=== PATIENT | female | born 2000 | race Caucasian/White ===

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

== ENCOUNTER 2022-01-10 11:12 | Emergency (ER) | payer BC, MEDICAID, SELFPAY ==
--- NOTE | ~2022-01-10 | US_ITS ---
EXAMINATION: US OB <=14 wk fetus w TV DATE: 01/10/2022 14:31 INDICATION: Left upper quadrant pain for 3 days. TECHNIQUE: Real-time transabdominal and transvaginal obstetric ultrasound. FINDINGS: No prior studies for comparison. The uterus measures 8.9 x 6 x 4.4 cm. There is an intrauterine gestational sac without evidence for f etal pole. There is fluid in the endometrium. There is a yolk sac. There is 3.7 cm corpus luteal cyst of the right ovary. The left ovary is unremarkable. Left ovary is unremarkable. IMPRESSION: 1. Intrauterine gestational sac containing a yolk sac. No pole is identified, likely due to ear ly gestation age. Differential diagnosis includes failed and ectopic . Recommend f ollow-up with serial quantitative beta-hCG levels and ultrasound as clinically indicated. 2: 3.7 cm corpus luteal cyst of the right ovary. Reviewed, dictated and finalized at location B. IMPRESSION: 1. Intrauterine gestational sac containing a yolk sac. No pole is identif ied, likely due to early gestation age. Differential diagnosis includes failed and ectopic . Recommend follow-up with serial quantitative b eta-hCG levels and ultrasound as clinically indicated. 2: 3.7 cm corpus luteal cyst of the right ovary.
[2022-01-10 11:26] VITALS: BP 118/63; PULSE 108; RESP 20; TEMP 36.2; O2SAT 100
[2022-01-10 12:06] LABS: Basophils Percent Auto 0.2 % (0.2-1.2); Eosinophils Percent Auto 0.3 % (0-4.4); Hematocrit 40.4 % (37.0-47.0); Hemoglobin 13.5 g/dL (12.0-15.0); Immature Granulocyte Absolute 0.04 K/mm3 (0.00-0.031); Immature Granulocyte Percent A 0.4 % (0-0.5); Lymphocytes Absolute Auto 1.42 K/mm3 (0.9-3.2); Lymphocytes Percent Auto 13.3 % (18.3-44.2); Mean Corpuscular HGB Conc 33.4 g/dl (32-36); Mean Corpuscular Hemoglobin 28.5 pg (26-34); Mean Corpuscular Volume 85.2 fl (80-100); Mean Platelet Volume 11.1 fl (7.4-10.4); Monocytes Absolute Auto 0.8 K/mm3 (0.1-0.6); Neutrophils Absolute Auto 8.4 K/mm3 (1.3-6.7); Neutrophils Percent Auto 78.8 % (45.5-73.1); Platelet Count Result 221 k/mm3 (150-375); Red Blood Count 4.74 M/mm3 (4.2-5.4); Red Cell Distribution Width 13.1 % (11.5-14.5); White Blood Count 10.7 K/mm3 (4.5-10.0)
[2022-01-10 12:10] LABS: Appearance Urine Clear (Clear); Bilirubin Urine Negative (Negative); Color Urine Yellow (Yellow); Glucose Urine UA Negative (Negative); Ketones Urine Trace mg/dL (Negative); Leukocyte Esterase Ur 2+ LEU/UL (Negative); Nitrate Urine Negative (Negative); Protein Urine Negative (Negative); Specific Grav Ur 1.025 (1.001-1.035); pH Urine 6.5 (5.0-9.0)
[2022-01-10 12:12] LABS: Add Urine Microscopic? YES; Blood Urine Trace-Intact (Negative)
[2022-01-10 12:13] LABS: Alanine Aminotransferase 16 U/L (6-35); Albumin Level 4.7 g/dL (3.7-5.6); Alkaline Phosphatase 71 U/L (45-116); Anion Gap 8 mmol/L (8-16); Aspartate Amino Transferase 21 U/L (14-36); Bilirubin,Total 0.6 mg/dL (0.2-1.3); Blood Urea Nitrogen 11 mg/dL (8-21); Calcium 9.1 mg/dL (8.9-10.7); Carbon Dioxide 23 mmol/L (22-30); Chloride 105 mmol/L (98-107); Estimated CRCL calculation 102 ml/min; Estimated Glomerular Filt Rate > 60; Glucose 90 mg/dL (65-110); Lipase 40 U/L (23-300); Potassium 3.7 mmol/L (3.4-5.0); Sodium 136 mmol/L (134-143)
[2022-01-10 12:22] LABS: Bacteria Urine Trace /hpf; Mucus Urine Rare /lpf; Squamous Epithelial Cell Urine Few /hpf (Few)
[2022-01-10 13:24] VITALS: BP 120/67; PULSE 99; RESP 18; TEMP 36.6; O2SAT 100
--- NOTE | 2022-01-10 13:39 | ED.ABDPAIN ---
HPI - Abdominal Pain General Chief Complaint: Abdominal Pain Stated Complaint: +preg, cramping Time Seen by Provider: 01/10/22 13:34 History of Present Illness HPI narrative: 21-year-old female presents to the emergency room today for complaints of lower abdominal cramping. Symptoms started 3 days ago. She denies any diarrhea. She has had some nausea and vomiting today. She is currently . She is very early in her and not sure how far along she is. She had a positive home test on December 29. She will not see her OB provider until later this month. She denies any vaginal bleeding or spotting. Last period was around December 05 but she says that it was very light bleeding for a couple of days. She just stopped her control at the beginning of November. She called the OB office today and they wanted her to come to the ER to make sure that she did not have an ectopic . This is her first . She does report having some yellowish vaginal discharge. She was taking an antibiotic for bacterial vaginosis and UTI but she stopped them when she found out that she was because she was not sure if it could hurt the baby. Related Data Home Medications Medication Instructions Recorded Confirmed vits 75-iron 28 mg-folic pkg PO 01/10/22 acid 800 mcg-omega3 440 mg oral pack Allergies Allergy/AdvReac Type Severity Reaction Status Date / Time No Known Allergies Allergy Mild Verified 01/10/22 14:35 Review of Systems Review of Systems: CONSTITUTIONAL: Denies fever, chills, or sweats. EYES: Denies visual changes, redness, or discharge. ENT: Denies rhinorrhea, congestion, sore throat, or otalgia. CARDIOVASCULAR: Denies chest pain, palpitations, or edema. RESPIRATORY: Denies cough or dyspnea. GASTROINTESTINAL: As per HPI GENITOURINARY: Denies dysuria or hematuria. As per HPI SKIN: Denies rash or itching. MUSCULOSKELETAL: Denies back pain, joint pain, or myalgia. NEUROLOGIC: Denies headache, numbness, dizziness, or weakness. PSYCHIATRIC: Denies anxiety or depression. [facility] Past Medical History Medical History Endometriosis Surgical History Surgical History H/O ovarian cystectomy S/P laparoscopic procedure Social History Social History Smoking status: Never smoker Second hand tobacco smoke exposure: No Alcohol intake: never Substance use: never Substance use type: does not use Gender identity (if verbalized by the patient): Female Spiritual care concerns: No Exam Narrative: GENERAL: Well-appearing, well-nourished, and in no acute distress. HEAD: Normocephalic, atraumatic. NECK: Supple. No adenopathy or masses. No carotid bruits or JVD CHEST: Clear to auscultation. No respiratory distress. No wheezes rales or rhonchi HEART: Regular rate and rhythm. No murmur heard. Normal peripheral pulses. ABDOMEN: Soft, nontender, nondistended, normal active bowel sounds. : Normal external vaginal exam. Internal vaginal exam demonstrates yellow discharge. Cervix has bluish coloration and is closed. Mild uterine enlargement. No adnexal tenderness. EXTREMITIES: Normal range of motion. No edema. SKIN: Warm, dry, no rash. NEURO: No focal deficits. Alert and oriented x3. PSYCH: Normal mood and affect. Course Course Emergency Course: Work up discussed with patient. Will treat patient for BV and UTI. Advised to call OB office to get closer follow up appointment this week. Pt agrees with discharge plan. Vital Signs Vital signs: Vital Signs Temperature 36.2 C L 01/10/22 11:26 Pulse Rate 108 H 01/10/22 11:26 Respiratory Rate 20 01/10/22 11:26 Blood Pressure 118/63 01/10/22 11:26 Pulse Oximetry 100 01/10/22 11:26 Oxygen Delivery Room Air 01/10/22 11:26 Temperature 3
[2022-01-10 14:29] VITALS: BP 112/68; PULSE 97; RESP 18; O2SAT 100
[2022-01-10 15:13] VITALS: BP 102/69; PULSE 90; RESP 16; O2SAT 100
== END 2022-01-10 16:20 | disposition home or self-care (01) ==
PROVIDERS: Emergency Medicine; Emergency Provider Nurse Practitioner Family; PCP Nurse Practitioner Family
DX: O23.40 Unspecified infection of urinary tract in pregnancy, unspecified trimester (principal); N39.0 Urinary tract infection, site not specified; Z3A.00 Weeks of gestation of pregnancy not specified; O99.891 Other specified diseases and conditions complicating pregnancy; R10.2 Pelvic and perineal pain
CPT/HCPCS: 36415; 76801; 76817; 80053; 81001; 83690; 84702; 85025; 87070; 87086; 87491; 87591; 87808; 99284

== ENCOUNTER 2022-01-13 17:38 | Outpatient (CLI) | payer BC, MEDICAID, SELFPAY | END 2022-01-13 17:39 | disposition home or self-care (01) | LOC: ANHLAB 17:41 | PROVIDERS: PCP Nurse Practitioner Family; Visit Provider Obstetrics & Gynecology | DX: R52 Pain, unspecified (principal) | CPT/HCPCS: 36415; 84702 ==

== ENCOUNTER 2022-04-23 15:54 | Observation (INO) | payer BC, MEDICAID, SELFPAY ==
[2022-04-23 16:06] VITALS: BP 109/56; PULSE 71
[2022-04-23 16:15] VITALS: BP 108/62; PULSE 72; BMI 18.7
--- NOTE | 2022-04-23 16:24 | OBADM ---
This patient, Miryam Hair, admitted to the OB room OB Post 116 for observation. Patient/family oriented to hospital policies and general routines including ID bracelet, bed and alarms, visiting hours, pain management, procedures, bathroom and other care routines, personal items, smoking policy, room service/diet, and visiting hours. Patient/Family are encouraged to report perceived risks to care and to ask questions if they do not understand what they are told or what they should do.
[2022-04-23 16:29] LABS: Appearance Urine Clear (Clear); Bilirubin Urine Negative (Negative); Blood Urine Negative (Negative); Color Urine Yellow (Yellow); Glucose Urine UA Negative (Negative); Ketones Urine Negative (Negative); Leukocyte Esterase Ur Negative LEU/UL (Negative); Nitrate Urine Negative (Negative); Protein Urine Negative (Negative)
[2022-04-23 16:30] VITALS: BP 109/65; PULSE 78
[2022-04-23 16:40] LABS: Bacteria Urine Trace /hpf; Mucus Urine Rare /lpf; Squamous Epithelial Cell Urine Few /hpf (Few); WBC Urine 0-3 /hpf
[2022-04-23 16:44] LABS: Add Urine Microscopic? NO
--- NOTE | 2022-05-15 13:12 | PM.OBTRLD ---
OB - Triage/Final Diagnosis Visit Information Comments/Additional reasons for admission: I have assessed the risk for this patient, Miryam Hair, and determined that she would benefit from observation care. Evaluation Laboratory results: Laboratory Tests 04/23/22 16:20 Urine Color Yellow Urine Appearance Clear Urine pH 7.0 Ur Specific [place] 1.020 Urine Protein Negative Urine Glucose (UA) Negative Urine Ketones Negative Ur Blood (Man) Negative Urine Nitrate Negative Urine Bilirubin Negative Urine Urobilinogen 1.0 Leukocyte Esterase Rfl Negative Urine RBC 3-5 H Urine WBC 0-3 Ur Squamous Epith Cells Few Urine Bacteria Trace Urine Mucus Rare Final Diagnosis (1) Abdominal pain: Code(s): R10.9 - Unspecified abdominal pain Status: Acute
== END 2022-04-23 17:06 | disposition home or self-care (01) ==
PROVIDERS: Admitting Provider Obstetrics & Gynecology; PCP Nurse Practitioner Family; Visit Provider Obstetrics & Gynecology
DX: O26.892 Other specified pregnancy related conditions, second trimester (principal); R10.9 Unspecified abdominal pain; Z3A.20 20 weeks gestation of pregnancy
CPT/HCPCS: 81003; G0378; G0379

== ENCOUNTER 2022-06-15 23:50 | Observation (INO) | payer BC, OTHER, SELFPAY ==
--- NOTE | ~2022-06-15 | US_ITS ---
EXAMINATION: US OB limited, US OB transvaginal DATE: 06/16/2022 09:40 (accession [id number]), 06/16/2022 09:41 (accession [id number]) INDICATION: Cervical length and placental assessment during third trimester , vaginal bleedi ng TECHNIQUE: Real-time ultrasound of the pelvis was performed. The interpreting radiologist was not pre sent for the study. COMPARISON: None. FINDINGS: There is a single living fetus in vertex presentation. The placenta is posterior. car diac activity and movement are noted. heart rate is 137 beats per minute (bpm). The amnio tic fluid index is 9.8 cm which is normal (normal range: 9.4 cm to 22.8 cm). The cervical length is 2 .6 cm. There is V shaped funneling of the internal cervical os with Valsalva with 15% funneling. IMPRESSION: 1. Single living fetus in vertex presentation. 2. Normal amniotic fluid index. 3. Cervical length is 2.6 cm with 15% funneling with Valsalva. Reviewed, dictated and finalized at location B. GER FURNITURE IMPRESSION: 1. Single living fetus in vertex presentation. 2. Normal amniotic fluid index. 3. Cervical length is 2.6 cm with 15% funneling with Valsalva.
[2022-06-16] VITALS (65 sets, daily range): BP systolic 92–110; BP diastolic 51–65; PULSE 62–102; RESP 16; TEMP 36.4–37.2; O2SAT 96–100; BMI 19.8
--- NOTE | 2022-06-16 08:29 | PM.IMHP ---
H&P: HPI History of Present Illness Date/Time: 06/16/22 08:29 Chief Complaint: Vaginal bleeding Narrative: 21-year-old 1 who presents with vaginal bleeding. She is 27 weeks gestation. She has been observed for about 12 hours. Her bleeding has improved. We will obtain pelvic ultrasound. She denies any contractions. She reports good movement. She denies any nausea, vomiting, fever, chills. She denies any chest pain or shortness of breath. She denies any loss of fluid Review of Systems Review of Systems: All systems reviewed & are unremarkable except as noted in HPI and below Constitutional: Constitutional: Denies chills, Denies fatigue, Denies fever(s) and Denies weakness Eyes: Eyes: Denies blurry vision, Denies change in vision, Denies loss of peripheral vision, Denies loss of vision, Denies other visual disturbances and Denies eye pain ENT: Denies vertigo, Denies dizziness, Denies hearing loss, Denies mouth pain, Denies nasal obstruction, Denies neck mass and Denies neck pain Cardiovascular: Cardiovascular: Denies chest pain, Denies diaphoresis, Denies syncope, Denies leg edema and Denies dyspnea Respiratory: Respiratory: Denies chest congestion, Denies cough, Denies hemoptysis, Denies dyspnea and Denies wheezing Gastrointestinal: Gastrointestinal: Denies abdominal pain, Denies constipation, Denies diarrhea, Denies nausea and Denies vomiting Genitourinary: Genitourinary: Denies hematuria, Denies change in libido, Denies nocturia, Denies genital lesions, Denies flank pain and Denies urinary urgency Musculoskeletal: Musculoskeletal: Denies abnormal gait, Denies back pain, Denies myalgias, Denies arthralgias, Denies joint swelling, Denies muscle weakness and Denies neck pain Integumentary/Breasts: Skin/Breast: Denies swelling, Denies breast pain, Denies breast mass, Denies dry skin, Denies nipple discharge, Denies unusual bruising and Denies jaundice Neurologic: Denies Neuro-related abnormal movements, Denies Abnormal speech present, Denies abnormal gait, Denies behavioral changes, Denies confusion, Denies vertigo, Denies dizziness, Denies syncope, Denies loss of vision, Denies memory loss, Denies convulsions and Denies weakness Psychiatric: Psychiatric: Denies abnormal sleep pattern, Denies behavioral changes, Denies change in libido, Denies confusion, Denies depression, Denies anhedonia and Denies memory loss Endocrine: Endocrine: Reports no additional endocrine complaints, Denies change in libido and Denies fatigue Hematologic/Lymphatic: Hematologic/Lymphatic: Reports no additional hematologic/lymphatic complaints Allergic/Immunologic: Allergic/Immunologic: Reports no additional allergic/immunologic complaints and Denies wheezing PMFSH Past Medical History Medical History Endometriosis Surgical History Surgical History H/O ovarian cystectomy S/P laparoscopic procedure Social History Social History Smoking status: Never smoker Second hand tobacco smoke exposure: No Alcohol intake: never Substance use: never Substance use type: does not use Gender identity (if verbalized by the patient): Female Spiritual care concerns: No Meds Home Medications and Allergies Home Medications Medication Instructions Recorded Confirmed Type ondansetron HCl 4 mg tablet 4 mg PO Q6H PRN Nausea 04/23/22 06/16/22 History vit no.133-ferrous 1 tablet PO DAILY 04/23/22 06/16/22 History fumarate 28 mg-folic acid 800 mcg tablet () sertraline 25 mg tablet (Zoloft) 25 mg PO DAILY 04/23/22 06/16/22 History Allergies Allergy/AdvReac Type Severity Reaction Status Date / Time No Known Allergies Allergy Mild Verified 01/10/22 14:35 Vital Signs Vital Signs - 24 hr 06/16/22 00:13 06/16/22 02:41 06/16/22
--- NOTE | 2022-07-17 22:15 | PM.OBTRLD ---
OB - Triage/Final Diagnosis Visit Information Comments/Additional reasons for admission: I have assessed the risk for this patient, Miryam Hair, and determined that she would benefit from observation care. Final Diagnosis (1) Vaginal bleeding during : Code(s): O46.90 - Antepartum hemorrhage, unspecified, unspecified trimester Status: Acute
== END 2022-06-16 10:40 | disposition home or self-care (01) ==
PROVIDERS: Admitting Provider Obstetrics & Gynecology; PCP Nurse Practitioner Family; Visit Provider Obstetrics & Gynecology
DX: O46.92 Antepartum hemorrhage, unspecified, second trimester (principal); Z3A.27 27 weeks gestation of pregnancy; N80.9 Endometriosis, unspecified; Z87.42 Personal history of other diseases of the female genital tract; Z79.899 Other long term (current) drug therapy
CPT/HCPCS: 76815; 76817; G0378; G0379

== ENCOUNTER 2022-06-25 19:35 | Outpatient (CLI) | payer BC, OTHER, SELFPAY | END 2022-06-25 20:48 | disposition home or self-care (01) | LOC: ANHOBOP 19:38 | PROVIDERS: PCP Nurse Practitioner Family; Visit Provider Obstetrics & Gynecology | DX: O36.8190 Decreased fetal movements, unspecified trimester, not applicable or unspecified (principal); Z3A.00 Weeks of gestation of pregnancy not specified | CPT/HCPCS: 59025 ==

== ENCOUNTER 2022-07-16 18:48 | Observation (INO) | payer BC, OTHER, SELFPAY ==
[2022-07-16 19:07] VITALS: BMI 20.7
[2022-07-16 19:14] VITALS: RESP 16; TEMP 36.4
[2022-07-16 19:15] VITALS: BP 117/76; PULSE 81
[2022-07-16 19:33] LABS: Appearance Urine Clear (Clear); Bilirubin Urine Negative (Negative); Blood Urine Negative (Negative); Color Urine Yellow (Yellow); Glucose Urine UA Negative (Negative); Ketones Urine Negative (Negative); Leukocyte Esterase Ur Trace LEU/UL (Negative); Nitrate Urine Negative (Negative); Protein Urine Negative (Negative)
[2022-07-16 19:36] LABS: Add Urine Microscopic? YES; Amorphous Sediment Urine Few; Bacteria Urine Trace /hpf; RBC Urine 0-2 /hpf (0-2); Squamous Epithelial Cell Urine Occasional /hpf (Few); WBC Urine 0-3 /hpf
--- NOTE | 2022-07-16 20:00 | PC.NURSE ---
RNJes explains plan of care with PT. PT verbalizes understanding and agrees with plan of care. PT refuses Flexeril medication. PT states she isn't comfortable taking this mediation because she hasn't taken it before. PT states she will take Tylenol when she gets home.
--- NOTE | 2022-08-16 07:53 | PM.OBTRLD ---
OB - Triage/Final Diagnosis Visit Information Comments/Additional reasons for admission: I have assessed the risk for this patient, Miryam Hair, and determined that she would benefit from observation care. Evaluation Laboratory results: Laboratory Tests 07/16/22 19:21 Urine Color Yellow Urine Appearance Clear Urine pH 7.0 Ur Specific [place] 1.010 Urine Protein Negative Urine Glucose (UA) Negative Urine Ketones Negative Ur Blood (Man) Negative Urine Nitrate Negative Urine Bilirubin Negative Urine Urobilinogen 1.0 Leukocyte Esterase Rfl Trace H Urine RBC 0-2 Urine WBC 0-3 Ur Squamous Epith Cells Occasional Amorphous Sediment Few H Urine Bacteria Trace Final Diagnosis (1) Dorsalgia: Code(s): M54.9 - Dorsalgia, unspecified Status: Acute
== END 2022-07-16 20:18 | disposition home or self-care (01) ==
PROVIDERS: Admitting Provider Obstetrics & Gynecology; PCP Nurse Practitioner Family; Visit Provider Obstetrics & Gynecology
DX: O26.893 Other specified pregnancy related conditions, third trimester (principal); Z3A.32 32 weeks gestation of pregnancy; M54.9 Dorsalgia, unspecified
CPT/HCPCS: 81001; G0378; G0379

== ENCOUNTER 2022-07-18 02:45 | Observation (INO) | payer BC, OTHER, SELFPAY ==
--- NOTE | 2022-07-18 02:45 | PC.NURSE ---
Patient reported to OB unit with complaint of possible SROM at home. Patient states she experienced a couple of gushes of fluid that she was not able to control. Patient states she currently is not leaking any fluid. Patient reports active movement and states she has lower back pain. Patient declines any need for pain medications for back pain at present time.
--- NOTE | 2022-07-18 02:45 | OBADM ---
This patient, Miryam Hair, admitted to the OB room OB Post 117 for observation. Patient/family oriented to hospital policies and general routines including ID bracelet, bed and alarms, visiting hours, pain management, procedures, bathroom and other care routines, personal items, smoking policy, room service/diet, and visiting hours. Patient/Family are encouraged to report perceived risks to care and to ask questions if they do not understand what they are told or what they should do.
[2022-07-18 02:56] VITALS: BMI 20.7
[2022-07-18 03:02] VITALS: BP 121/69; PULSE 75; RESP 15; TEMP 36.6
--- NOTE | 2022-07-18 03:29 | PC.NURSE ---
Notified Dr. Prar of negative ROM plus result. Reactive NST. Discharge order received.
--- NOTE | 2022-07-18 03:36 | PC.NURSE ---
Discharge instructions reviewed with patient. Patient educated on labor precautions. Patient is agreeable to discharge and states understanding of discharge instructions and denies questions.
--- NOTE | 2022-08-14 21:23 | PM.OBTRLD ---
OB - Triage/Final Diagnosis Visit Information Comments/Additional reasons for admission: I have assessed the risk for this patient, Miryam Hair, and determined that she would benefit from observation care. Final Diagnosis (1) Back pain affecting : Code(s): O99.891 - Other specified diseases and conditions complicating ; M54.9 - Dorsalgia, unspecified Status: Acute
== END 2022-07-18 03:40 | disposition home or self-care (01) ==
PROVIDERS: Admitting Provider Obstetrics & Gynecology; PCP Nurse Practitioner Family; Visit Provider Obstetrics & Gynecology
DX: O46.93 Antepartum hemorrhage, unspecified, third trimester (principal); O99.891 Other specified diseases and conditions complicating pregnancy; M54.9 Dorsalgia, unspecified; Z3A.32 32 weeks gestation of pregnancy
CPT/HCPCS: 59025; 84112; G0378; G0379

== ENCOUNTER 2022-07-23 20:00 | Observation (INO) | payer BC, OTHER, SELFPAY ==
[2022-07-23] VITALS (24 sets, daily range): BP systolic 108–123; BP diastolic 55–83; PULSE 76–107; O2SAT 100
[2022-07-23 20:46] LABS: Add Urine Microscopic? NO; Appearance Urine Clear (Clear); Bilirubin Urine Negative (Negative); Blood Urine Negative (Negative); Color Urine Light Yellow (Yellow); Glucose Urine UA Negative (Negative); Ketones Urine Negative (Negative); Leukocyte Esterase Ur Negative LEU/UL (Negative); Nitrate Urine Negative (Negative); Protein Urine Negative (Negative); Urobilinogen Urine 0.2 mg/dL (<2.0)
[2022-07-23 20:57] LABS: Bacteria Urine Trace /hpf; Mucus Urine Rare /lpf; RBC Urine 0-2 /hpf (0-2); Squamous Epithelial Cell Urine Occasional /hpf (Few); WBC Urine 0-3 /hpf
--- NOTE | 2022-08-15 08:40 | P.PNOB_ITS ---
OB - Triage/Final Diagnosis Visit Information Comments/Additional reasons for admission: I have assessed the risk for this patient, Miryam Hair, and determined that she would benefit from observation care. Evaluation Laboratory results: Laboratory Tests 07/23/22 20:19 Urine Color Light yellow Urine Appearance Clear Urine pH 7.0 Ur Specific [place] 1.010 Urine Protein Negative Urine Glucose (UA) Negative Urine Ketones Negative Ur Blood (Man) Negative Urine Nitrate Negative Urine Bilirubin Negative Urine Urobilinogen 0.2 Leukocyte Esterase Rfl Negative Urine RBC 0-2 Urine WBC 0-3 Ur Squamous Epith Cells Occasional Urine Bacteria Trace Urine Mucus Rare Final Diagnosis (1) False labor: Code(s): O47.9 - False labor, unspecified Status: Acute
== END 2022-07-23 23:40 | disposition home or self-care (01) ==
PROVIDERS: Admitting Provider Obstetrics & Gynecology; PCP Nurse Practitioner Family; Visit Provider Obstetrics & Gynecology
DX: O47.03 False labor before 37 completed weeks of gestation, third trimester (principal); Z3A.33 33 weeks gestation of pregnancy
CPT/HCPCS: 81003; 87086; G0378; G0379

== ENCOUNTER 2022-08-13 22:48 | Inpatient (IN) | payer BC, OTHER, SELFPAY ==
[2022-08-13 23:07] VITALS: BP 123/85; PULSE 97
[2022-08-13 23:16] VITALS: BP 131/82; PULSE 95
[2022-08-13 23:31] VITALS: BP 120/73; PULSE 87
[2022-08-13 23:45] VITALS: BP 122/85; PULSE 85
[2022-08-14] VITALS (53 sets, daily range): BP systolic 106–142; BP diastolic 60–108; PULSE 58–101; RESP 16–18; TEMP 36.6–37.1; O2SAT 97–100; BMI 21.7
--- NOTE | 2022-08-14 01:10 | LDADM ---
This patient, Miryam Hair, was admitted to Labor/Delivery/Recovery 105 on 08/14/22 at 00:43. Plans for labor, pain management and were discussed with patient. Patient/family oriented to hospital policies and general routines including ID bracelet, bed and alarms, visiting hours, pain management, procedures, bathroom and other care routines, personal items, smoking policy, room service/diet and guest tray routines, infant security routines, and visiting hours. Patient/Family are encouraged to report perceived risks to care and to ask questions if they do not understand what they are told or what they should do. See OBIX for further documentation.
[2022-08-14 01:12] LABS: Basophils Percent Auto 0.1 % (0.2-1.2); Eosinophils Absolute Auto 0.1 K/mm3 (0-0.3); Eosinophils Percent Auto 0.5 % (0-4.4); Hematocrit 34.4 % (37.0-47.0); Hemoglobin 11.4 g/dL (12.0-15.0); Immature Granulocyte Absolute 0.08 K/mm3 (0.00-0.031); Immature Granulocyte Percent A 0.7 % (0-0.5); Lymphocytes Absolute Auto 2.14 K/mm3 (0.9-3.2); Lymphocytes Percent Auto 17.5 % (18.3-44.2); Mean Corpuscular HGB Conc 33.1 g/dl (32-36); Mean Corpuscular Hemoglobin 29.1 pg (26-34); Mean Corpuscular Volume 87.8 fl (80-100); Mean Platelet Volume 12.3 fl (7.4-10.4); Monocytes Percent Auto 8.4 % (2.6-8.5); Neutrophils Absolute Auto 8.9 K/mm3 (1.3-6.7); Neutrophils Percent Auto 72.8 % (45.5-73.1); Platelet Count Result 174 k/mm3 (150-375); Red Blood Count 3.92 M/mm3 (4.2-5.4); Red Cell Distribution Width 13.5 % (11.5-14.5); White Blood Count 12.2 K/mm3 (4.5-10.0)
[2022-08-14] MEDS: LACTATED RINGERS 1,000 ML 125 ML IV CONT (01:15)
[2022-08-14] MEDS: AMPICILLIN 2 GM/NS 100 ML 2 GM/100 ML BAG IVPB (01:30)
[2022-08-14] MEDS: AMPICILLIN 1 GM/NS 50 ML 1 GM/50 ML BAG IVPB ×2 (05:31→09:06)
[2022-08-14] MEDS: ONDANSETRON INJ 4 MG/2 ML VIAL IV PUSH (07:34)
[2022-08-14] MEDS: OXYTOCIN 30 UNITS/NS 500 ML 30 UNITS/500 ML BAG IV CONT (08:44)
--- NOTE | 2022-08-14 10:49 | PM.OBPRVD ---
OB - Delivery Note Procedure Delivery date: 08/14/22 Procedure: vaginal delivery Events: Other (36 week delivery) Induction method: None Delivery augmentation: Rupture of Membranes and Pitocin Delivery monitor: External FHT and External Uterine Route of delivery: Episiotomy description: None Laceration Description: Superficial (right labia) Delivery repair: other (none) Specimen: Yes Quantitative Blood Loss (ml): 85 Anesthesia type: None Disposition: Floor [place] Baby Date of : 08/14/22 Time of : 10:38 Weeks of gestation at delivery: 36 gender: Male Weight (pounds): 6 Weight (ounces): 2 presentation: vertex position: Left Occiput Anterior Placenta delivery description: Spontaneous Cord Vessel Description: 3 Vessels and Clamped/Cut score one minute: 7 score five minutes: 9 Narrative: baby to warmer, mother and baby in stable condition
[2022-08-14] MEDS: OXYTOCIN 30 UNITS/NS 500 ML 30 UNITS/500 ML BAG 125 UNITS IV CONT (11:07)
--- NOTE | 2022-08-14 13:14 | PC.NURSE ---
Patient transferred to post room #281 via wheelchair. Support person present. Oriented to unit, room, information board, rooming in, admission packet and security measures. Patient verbalizes understanding. Baby is currently in Level II Nursery.
--- NOTE | 2022-08-14 15:53 | PC.NURSE ---
Tess Alva RN has looked over and approved patient's charting that Sahra Sahu, Student RN, has completed.
[2022-08-15 03:37] VITALS: BP 119/78; PULSE 64; RESP 18; TEMP 37.2; O2SAT 100
[2022-08-15 04:22] LABS: Hematocrit 32.3 % (37.0-47.0); Hemoglobin 10.6 g/dL (12.0-15.0)
[2022-08-15 08:05] VITALS: BP 103/59; PULSE 58; RESP 18; TEMP 36.6; O2SAT 100
--- NOTE | 2022-08-15 08:18 | PM.OBPNVD ---
OB - PN: Subj Subjective Date/time seen: 08/15/22 08:18 Patient comments: no complaints baby status: doing well OB - PN: Obj Data Labs 08/15/22 02:58 Labs: Laboratory Results - last 24 hr 08/15/22 02:58 Hgb 10.6 L Hct 32.3 L OB - PN A/P Plan day: 1 Plan: routine care Time Spent With Patient Time: Total time spent is greater than 50% in coordination of care (as documented) at patient's floor/unit and/or counseling patient: Time with patient: less than 15 minutes Review of Systems Review of Systems: All systems reviewed & are unremarkable except as noted in HPI and below Exam Narrative: Fundus firm and vaginal flow controlled. No lower ext redness, warmth, or edema. Negative homans. Const: General: comfortable Chest: Breast/axilla inspection: normal inspection of the breasts Resp: Effort & Inspection: normal respiratory effort Cardio: Rate: regular rate GI: GI Palp: Yes Soft to palpation Psych: Appearance: grossly normal Affect: normal affect Attitude: cooperative Thought content: Yes Normal thought content present Judgement: Good judgement present (Psych)
[2022-08-15] MEDS: MULTIVIT/MIN/PREN/FOL AC/IRON TABLET 1 TAB PO (08:52)
[2022-08-15] MEDS: IBUPROFEN 600 MG TABLET PO (08:52)
[2022-08-15 09:21] LABS: Rapid Plasma Reagin Non-Reactive (NonReactive)
[2022-08-15 20:00] VITALS: BP 102/56; PULSE 72; RESP 18; TEMP 36.9; O2SAT 100
[2022-08-16 07:55] VITALS: BP 113/75; PULSE 65; RESP 16; TEMP 36.7; O2SAT 100
--- NOTE | 2022-08-16 08:00 | PM.OBPNVD ---
OB - PN: Subj Subjective Date/time seen: 08/16/22 08:00 Patient comments: no complaints baby status: doing well OB - PN: Obj Data Labs 08/15/22 02:58 Labs: Laboratory Results - last 24 hr 08/14/22 00:54 RPR Non-reactive OB - PN A/P Plan day: 2 Plan: routine care and discharge home (F/U in 4 weeks) Time Spent With Patient Time: Total time spent is greater than 50% in coordination of care (as documented) at patient's floor/unit and/or counseling patient: Time with patient: less than 15 minutes Review of Systems Review of Systems: All systems reviewed & are unremarkable except as noted in HPI and below Exam Narrative: Fundus firm and vaginal flow controlled. No lower ext redness, warmth, or edema. Negative homans. Const: General: comfortable Chest: Breast/axilla inspection: normal inspection of the breasts Resp: Effort & Inspection: normal respiratory effort Cardio: Rate: regular rate GI: GI Palp: Yes Soft to palpation Psych: Appearance: grossly normal Affect: normal affect Attitude: cooperative Thought content: Yes Normal thought content present Judgement: Good judgement present (Psych)
[2022-08-16] MEDS: IBUPROFEN 600 MG TABLET PO (08:35)
--- NOTE | 2022-09-08 08:22 | P.DS_ITS ---
DS: Admitting Diagnosis Discharge Date 08/16/22 Admitting Diagnosis Labor OB - DS: Summary OB Procedures : None OB Procedures Intrapartum: Spontaneous Vag Delivery OB Procedures: : None Time Spent with Patient Time attestation: Total time spent providing and/or coordinating discharge services: DS: Data Data Completed and Pending Completed studies during hospitalization: Pending at discharge 08/14/22 10:40 Surgical [PTH] Routine Discharge Plan Discharge Attending physician on discharge: Darlene French Consulting providers: Darlene French ; Celeste Zhang Discharging Clinician: Celeste Zhang Patient Disposition: Home, Self-Care Activity: pelvic rest Diet: as tolerated Discharge Instructions: Education: Mom and Baby Guide Given to: Mother Follow-Up: Call your delivering provider's office for an appointment to be seen in: Call for appointment Mom and baby should come to the [facility] for the follow-up appointment. Appointment Date/Time: To be scheduled at time of Baby's discharge. BREAST CARE: * Wear a snug supportive bra. * For engorgement discomfort: Bottle Feeding: * May apply ice packs EPISIOTOMY/PERINEAL CARE: * Until bleeding stops, use your leeanne bottle after urinating * Change your pad frequently throughout the day * You may take sitz baths several times a day (fill your bathtub with warm water and soak for 20 minutes.) Do NOT bathe in the water * No tub baths until seen by your physician - You may shower ACTIVITY: * Rest as much as possible. * Do not exercise or lift anything heavier than your baby (such as laundry or other children.) * Avoid stairs or driving as much as possible. * Do not put anything into the vagina. No douching, tampons, or sexual activity until seen by physician. NOTIFY PHYSICIAN IF YOU HAVE ANY QUESTIONS OR IF ANY OF THE FOLLOWING SYMPTOMS OCCUR: * If your episiotomy or incision becomes red, swollen, or more painful than what you have experienced in the hospital. * If your vaginal bleeding becomes foul smelling. * If your vaginal bleeding becomes more heavy than a period or if your bleeding changes from pink to bright red. However, you may pass an occasional walnut- sized clot once or twice for the first week . * If you experience a sharp, shooting pain in you calves. * If you discover a hard, reddened area on your breast or if you experience flu- like symptoms. DIET: * Eat regular, well-balanced meals. * Drink plenty of fluids daily. Stand Alone Forms: General Discharge Information Follow-up/Referrals: Darlene French CNM [Certified Nurse Data Governance Analyst] - Discharge Medications: Continued sertraline [Zoloft] 25 mg Tablet 25 mg PO DAILY 28-800 mg-mcg Tablet 1 tablet PO DAILY Discontinued ondansetron HCl 4 mg tablet 4 mg PO Q6H PRN (Reason: Nausea) Date of admission: 08/14/22 00:43 Primary Care Provider: ShantelDayana Admitting Provider: Jes Parr Attending physician on admission: Jes Parr Condition: Stable
== END 2022-08-16 13:10 | disposition home or self-care (01) | DRG 807 ==
LOC: ANHLDR 08-14 00:43 → ANHOB2 08-14 13:18
PROVIDERS: Advanced Practice Midwife; Admitting Provider Obstetrics & Gynecology; PCP Nurse Practitioner Family; Visit Provider Obstetrics & Gynecology
DX: O76 Abnormality in fetal heart rate and rhythm complicating labor and delivery (principal); Z37.0 Single live birth; O70.0 First degree perineal laceration during delivery; Z3A.36 36 weeks gestation of pregnancy
CPT/HCPCS: 36415; 85014; 85018; 85025; 86592; 86850; 86900; 86901; 88307; A9270; J0290; J2405; J2590; J7120

== ENCOUNTER 2022-09-21 00:29 | Emergency (ER) | payer BC, OTHER, SELFPAY ==
[2022-09-21 00:32] VITALS: BP 121/72; PULSE 75; RESP 20; TEMP 36.8; O2SAT 100
--- NOTE | 2022-09-21 01:51 | PC.NURSE ---
pt c/o blood in stool since 2329. denies any abd pain.
--- NOTE | 2022-09-21 01:52 | ED.GENADULT ---
HPI - General Adult General Chief complaint: GI Bleed Stated complaint: rectal bleeding Time Seen by Provider: 09/21/22 01:28 History of Present Illness HPI narrative: Patient is a 21-year-old female that presents to Emergency Department with a chief complaint of rectal bleeding. Patient reports she is 5 weeks and went to the bathroom this evening and noticed that she had some bright red blood in the toilet. The patient states that she also had bright red blood on the toilet paper whenever she wiped reports she had some discomfort in her rectal area. The patient denies abdominal pain denies vomiting. Patient reports she was not told that she had any external hemorrhoids whenever she had her delivery. Related Data Home Medications Medication Instructions Recorded Confirmed vit no.133-ferrous 1 tablet PO DAILY 04/23/22 08/14/22 fumarate 28 mg-folic acid 800 mcg tablet () sertraline 25 mg tablet (Zoloft) 25 mg PO DAILY 04/23/22 08/14/22 Allergies Allergy/AdvReac Type Severity Reaction Status Date / Time No Known Allergies Allergy Mild Verified 07/18/22 03:17 Review of Systems Review of Systems: A 10 system review of systems was completed on the patient and is negative except for what is stated in the HPI. Nursing and ancillary documentation was reviewed. PMFSH Past Medical History Medical History Endometriosis Surgical History Surgical History H/O ovarian cystectomy S/P laparoscopic procedure Social History Social History Smoking status: Current every day smoker Tobacco type: e-cigarettes/vaping Second hand tobacco smoke exposure: Yes Alcohol intake: never Substance use: never Substance use type: does not use Lack of Transportation: No Lack of Food: Never True Current Housing: I Have Housing Concerned About Future Housing: No Difficulty Paying Gas/Electric Bills: No Difficulty Paying for Meds: No Currently Unemployed: No Education: Trade/Vocational Certificate Difficulty w/ Childcare or Family Care: No Living arrangements: with family Gender identity (if verbalized by the patient): Female Spiritual care concerns: No Exam Narrative: GENERAL: Well-appearing, well-nourished, and in no acute distress. HEAD: Normocephalic, atraumatic. EYES: PERRLA and EOMI. ENT: Nares clear, no rhinorrhea or epistaxis. Mucous membranes moist. NECK: Supple. CHEST: Clear to auscultation. No respiratory distress. HEART: Regular rate and rhythm. No murmur heard. Normal peripheral pulses. ABDOMEN: Soft, nontender, nondistended, normal active bowel sounds. : Rectal exam there is no large external hemorrhoid. There is tenderness on rectal exam and bright red blood. EXTREMITIES: Normal range of motion. No edema. SKIN: Warm, dry, no rash. NEURO: No focal deficits. Alert and oriented x3. PSYCH: Normal mood and affect. Course Course Emergency Course: Laboratory studies were obtained on the patient which showed a normal hemoglobin of 13.1. Vital Signs Vital signs: Vital Signs Temperature 36.8 C 09/21/22 00:32 Pulse Rate 75 09/21/22 00:32 Respiratory Rate 20 09/21/22 00:32 Blood Pressure 121/72 09/21/22 00:32 Pulse Oximetry 100 09/21/22 00:32 Oxygen Delivery Room Air 09/21/22 00:32 Temperature 36.8 C 09/21/22 00:32 Pulse Rate 75 09/21/22 00:32 Respiratory Rate 20 09/21/22 00:32 Blood Pressure 121/72 09/21/22 00:32 Pulse Oximetry 100 09/21/22 00:32 Oxygen Delivery Room Air 09/21/22 00:32 Medical Decision Making Vital Signs Vital Signs: Vital Signs Temperature 36.8 C 09/21/22 00:32 Pulse Rate 75 09/21/22 00:32 Respiratory Rate 20 09/21/22 00:32 Blood Pressure 121/72 09/21/22 00:32 Pulse Oximetry 10
[2022-09-21 01:53] LABS: Basophils Percent Auto 0.6 % (0.2-1.2); Eosinophils Absolute Auto 0.2 K/mm3 (0-0.3); Eosinophils Percent Auto 2.9 % (0-4.4); Hematocrit 40.9 % (37.0-47.0); Hemoglobin 13.1 g/dL (12.0-15.0); Immature Granulocyte Absolute 0.01 K/mm3 (0.00-0.031); Immature Granulocyte Percent A 0.2 % (0-0.5); Lymphocytes Absolute Auto 2.45 K/mm3 (0.9-3.2); Lymphocytes Percent Auto 37.8 % (18.3-44.2); Mean Corpuscular Hemoglobin 28.4 pg (26-34); Mean Corpuscular Volume 88.5 fl (80-100); Mean Platelet Volume 11.4 fl (7.4-10.4); Monocytes Absolute Auto 0.6 K/mm3 (0.1-0.6); Monocytes Percent Auto 9.4 % (2.6-8.5); Neutrophils Absolute Auto 3.2 K/mm3 (1.3-6.7); Neutrophils Percent Auto 49.1 % (45.5-73.1); Platelet Count Result 180 k/mm3 (150-375); Red Blood Count 4.62 M/mm3 (4.2-5.4); Red Cell Distribution Width 13.7 % (11.5-14.5); White Blood Count 6.5 K/mm3 (4.5-10.0)
[2022-09-21 02:04] LABS: Alanine Aminotransferase 17 U/L (6-35); Albumin Level 4.7 g/dL (3.7-5.6); Alkaline Phosphatase 101 U/L (45-116); Anion Gap 7 mmol/L (8-16); Aspartate Amino Transferase 21 U/L (14-36); Bilirubin,Total 0.5 mg/dL (0.2-1.3); Blood Urea Nitrogen 14 mg/dL (8-21); Calcium 9.2 mg/dL (8.9-10.7); Carbon Dioxide 26 mmol/L (22-30); Chloride 102 mmol/L (98-107); Estimated CRCL calculation 88 ml/min; Estimated Glomerular Filt Rate > 60; Glucose 98 mg/dL (65-110); Potassium 3.9 mmol/L (3.4-5.0); Sodium 135 mmol/L (134-143)
[2022-09-21 03:19] VITALS: BP 110/65; PULSE 60; RESP 16; O2SAT 100
== END 2022-09-21 03:21 | disposition home or self-care (01) ==
PROVIDERS: Emergency Provider Emergency Medicine; PCP Nurse Practitioner Family
DX: K64.9 Unspecified hemorrhoids (principal); K62.5 Hemorrhage of anus and rectum
CPT/HCPCS: 36415; 80053; 85025; 99283

== ENCOUNTER 2023-04-25 03:34 | Day surgery (SDC) | payer BC, OTHER, SELFPAY ==
[2023-04-18 13:00] VITALS: BMI 20.9
--- NOTE | 2023-04-18 13:13 | SUR.PREOP ---
Report to the Outpatient Waiting Room, entrance under the green pavilion located off [facility], at time 0745 on date 04/25/23. Planned Procedure Time: 0945. Time changes happen often and if your time is changed the preop area will call you the afternoon before. - You and your visitor will be asked to self-screen and do not enter if you have any COVID symptoms. - A mask is optional within the hospital at this time. Patients may have clear liquids (water, carbonated beverages, clear teas, apple juice) until 3 hours prior to surgery with a maximum of 20 ounces. - No food from midnight until time of surgery Take the following medications with a SIP of water the morning of surgery: N/A DO NOT STOP ANY OF YOUR OTHER PRESCRIPTION MEDICATIONS PRIOR TO SURGERY ?EXCEPT THE FOLLOWING Medications to discontinue per physician N/A Date to take last dose N/A Please no make-up, nail [place], hairspray, perfume, deodorant, or body powder the day of surgery. No jewelry (including any body piercings) or valuables the day of surgery, leave them at home. Please take a shower or bath the night before, or the morning of, surgery with an antibacterial soap. Wear comfortable, loose fitting clothing. Children are encouraged to wear pajamas. - Jewelry must be removed prior to entering the operating room. Rings and piercings that are not removed may be cut off. - The hospital will not accept responsibility for valuables. - Please leave all valuables, including medications, at home the day of surgery. If you are going home after surgery, a licensed van cdl driver must drive you home. - NO public transportation without another adult if you receive anesthesia. - We recommend that an adult stay with you for 24 hours following discharge. - We also recommend that you do not drive, make important decision, drink alcoholic beverages, or take any drugs that were not prescribed by your health care provider for at least 24 hours after your discharge time. Follow any additional instructions given to you from your surgeon. If you or anyone in your household have experienced Covid symptoms in the past week, please notify your surgeon or the nurse liaison at the phone number below for possible testing. Telephone instructions given to MYRANDA HINTON and asked if any additional questions and then verbalized understanding. Patient advised to call surgeon office or pre surgery nurse liaison [phone] if any additional questions.
[2023-04-25] VITALS (8 sets, daily range): BP systolic 100–121; BP diastolic 51–72; PULSE 70–88; RESP 10–20; TEMP 35.9–36.7; O2SAT 68–100
[2023-04-25] MEDS: ACETAMINOPHEN 500 MG TABLET 1000 MG PO (07:41)
[2023-04-25] MEDS: KETOROLAC 15 MG/ML VIAL (*BKC) IV PUSH (07:42)
[2023-04-25 07:48] LABS: Appearance Urine Cloudy (Clear); Bacteria Urine None Seen /hpf; Bilirubin Urine Negative (Negative); Blood Urine 3+ (Negative); Color Urine Yellow (Yellow); Glucose Urine UA Negative (Negative); Ketones Urine Negative (Negative); Leukocyte Esterase Ur 2+ LEU/UL (NEGATIVE); Nitrate Urine Negative (Negative); Non Pathogenic Casts 0-2; Protein Urine 2+ mg/dL (Negative); RBC Urine >100 /hpf (0-2); Squamous Epithelial Cell Urine Occasional /hpf (Few); WBC Urine >100 /hpf (0-3)
[2023-04-25] MEDS: LACTATED RINGERS 1,000 ML 30 ML IV CONT ×2 (07:51→10:34)
[2023-04-25 07:52] LABS: Add Urine Microscopic? YES
--- NOTE | 2023-04-25 08:15 | WPDANESEPPF ---
Anes - Initial Pre Proc Eval Procedure: Operation Date: 04/25/23 09:00 Proposed Procedures p Diagnostic Laparoscopy - Jes Parr MD Date/Time: 04/25/23 08:15 Surgeon: Jes Parr MD Pre Op Diagnosis: pelvic pain Patient Data Age: 22 Gender: F Height: 1.73 m Weight: 60.2 kg Last Vital Signs Temp 35.9 C L 04/25/23 07:13 Pulse 81 04/25/23 07:13 Resp 20 04/25/23 07:13 BP 110/71 04/25/23 07:13 Pulse Ox 99 04/25/23 07:13 O2 Del Method Room Air 04/25/23 07:13 Allergies Allergy/AdvReac Type Severity Reaction Status Date / Time No Known Allergies Allergy Mild Verified 04/25/23 07:44 Home Medications Medication Instructions Recorded Confirmed Type No Home Medications 04/18/23 04/25/23 History Laboratory Tests 04/25/23 07:34 Urine Color Yellow (Yellow) Urine Appearance Cloudy H (Clear) Urine pH 7.0 (5.0-9.0) Ur Specific [place] 1.020 (1.001-1.035) Urine Protein 2+ H mg/dL (Negative) Urine Glucose (UA) Negative mg/dL (Negative) Urine Ketones Negative mg/dL (Negative) Ur Blood (Man) 3+ H (Negative) Urine Nitrate Negative (Negative) Urine Bilirubin Negative (Negative) Urine Urobilinogen 1.0 mg/dL (<2.0) Ur Leukocyte Esterase 2+ H CHARLETTE/UL (NEGATIVE) Urine RBC >100 H /hpf (0-2) Urine WBC >100 H /hpf (0-3) Ur Squamous Epith Cells Occasional /hpf (Few) Urine Bacteria None seen /hpf Urine Casts 0-2 Patient hx anesthesia problems: none Family hx anesthesia problems: none Results Review: All pre-operative results and documents have been reviewed as part of the pre-operative evaluation. [facility] Past Medical History Medical History Endometriosis Surgical History Surgical History H/O ovarian cystectomy S/P laparoscopic procedure Social History Social History Smoking status: Current every day smoker Tobacco type: e-cigarettes/vaping Second hand tobacco smoke exposure: Yes Additional smoking assessment comments: PT STATES ANN BEEN VAPING FOR SEVERAL YEARS NOW. Alcohol intake: never Substance use: never Substance use type: does not use Lack of Transportation: No Lack of Food: Never True Current Housing: I Have Housing Concerned About Future Housing: No Difficulty Paying Gas/Electric Bills: No Difficulty Paying for Meds: No Currently Unemployed: No Education: Trade/Vocational Certificate Difficulty w/ Childcare or Family Care: No Living arrangements: with family Gender identity (if verbalized by the patient): Female Spiritual care concerns: No Anes - Eval Final PreProcedure Day of Procedure 04/25/23 08:15 Patient weight: normal Heart: regular rate and rhythm Lungs: clear to auscultation Airway: Mallampati scale class II Neurological: alert and oriented Last oral intake: >/= 8 hours ASA classification: II Emergent: no Anesthetic plan: proceed Anesthesia type and monitoring: general ETT and standard monitoring Results Review: All pre-operative results and documents have been reviewed as part of the pre-operative evaluation. Informed Consent: The patient's anesthetic plan and its attendant risks and benefits were discussed with the patient/family/POA. Questions were solicited and answers provided to the satisfaction of the patient/family/POA.
--- NOTE | 2023-04-25 08:25 | WPDHPUPDATE1 ---
History and Physical Update Update Date/Time: 04/25/23 08:25 History and Physical has been reviewed, including an updated exam of the patient. There are NO changes in the patient's condition. Risks, benefits, and alternatives have been discussed and questions answered. Patient agrees to proceed with procedure.
--- NOTE | 2023-04-25 08:36 | WPDHPUPDATE1 ---
History and Physical Update Update Date/Time: 04/25/23 08:36 History and Physical has been reviewed, including an updated exam of the patient. There are NO changes in the patient's condition. Risks, benefits, and alternatives have been discussed and questions answered. Patient agrees to proceed with procedure.
--- NOTE | 2023-04-25 08:37 | PM.IMHP ---
H&P: HPI History of Present Illness Date/Time: 04/25/23 08:37 Chief Complaint: Pain Narrative: This patient is a 22-year-old female with pelvic pain. We have agreed to perform diagnostic laparoscopy. She understands the risks. She understands the procedure. I explained to her in detail. She understands there is risks. She understands that injuries may occur that result in hospitalization, more surgery, and severe illness. She understands there is risk of hemorrhage and infection. She denies any nausea, vomiting, fever, chills. She denies any chest pain or shortness of breath. Review of Systems Review of Systems: All systems reviewed & are unremarkable except as noted in HPI and below Constitutional: Constitutional: Denies chills, Denies fatigue, Denies fever(s) and Denies weakness Eyes: Eyes: Denies blurry vision, Denies change in vision, Denies loss of peripheral vision, Denies loss of vision, Denies other visual disturbances and Denies eye pain ENT: Denies vertigo, Denies dizziness, Denies hearing loss, Denies mouth pain, Denies nasal obstruction, Denies neck mass and Denies neck pain Cardiovascular: Cardiovascular: Denies chest pain, Denies diaphoresis, Denies syncope, Denies leg edema and Denies dyspnea Respiratory: Respiratory: Denies chest congestion, Denies cough, Denies hemoptysis, Denies dyspnea and Denies wheezing Gastrointestinal: Gastrointestinal: Denies abdominal pain, Denies constipation, Denies diarrhea, Denies nausea and Denies vomiting Genitourinary: Genitourinary: Denies hematuria, Denies change in libido, Denies nocturia, Denies genital lesions, Denies flank pain and Denies urinary urgency Musculoskeletal: Musculoskeletal: Denies abnormal gait, Denies back pain, Denies myalgias, Denies arthralgias, Denies joint swelling, Denies muscle weakness and Denies neck pain Integumentary/Breasts: Skin/Breast: Denies swelling, Denies breast pain, Denies breast mass, Denies dry skin, Denies nipple discharge, Denies unusual bruising and Denies jaundice Neurologic: Denies Neuro-related abnormal movements, Denies Abnormal speech present, Denies abnormal gait, Denies behavioral changes, Denies confusion, Denies vertigo, Denies dizziness, Denies syncope, Denies loss of vision, Denies memory loss, Denies convulsions and Denies weakness Psychiatric: Psychiatric: Denies abnormal sleep pattern, Denies behavioral changes, Denies change in libido, Denies confusion, Denies depression, Denies anhedonia and Denies memory loss Endocrine: Endocrine: Reports no additional endocrine complaints, Denies change in libido and Denies fatigue Hematologic/Lymphatic: Hematologic/Lymphatic: Reports no additional hematologic/lymphatic complaints Allergic/Immunologic: Allergic/Immunologic: Reports no additional allergic/immunologic complaints and Denies wheezing PMFSH Past Medical History Medical History Endometriosis Surgical History Surgical History H/O ovarian cystectomy S/P laparoscopic procedure Social History Social History Smoking status: Current every day smoker Tobacco type: e-cigarettes/vaping Second hand tobacco smoke exposure: Yes Additional smoking assessment comments: PT STATES ANN BEEN VAPING FOR SEVERAL YEARS NOW. Alcohol intake: never Substance use: never Substance use type: does not use Lack of Transportation: No Lack of Food: Never True Current Housing: I Have Housing Concerned About Future Housing: No Difficulty Paying Gas/Electric Bills: No Difficulty Paying for Meds: No Currently Unemployed: No Education: Trade/Vocational Certificate Difficulty w/ Childcare or Family Care: No Living arrangements: with family Gender identity (if verbalized by the patient): Female Spiritual care concerns: No Meds Home Medic
[2023-04-25] MEDS: cefTRIAXone 2 GM/NS 100 ML 2 GM/100 ML BAG IVPB (08:52)
--- NOTE | 2023-04-25 10:32 | W.PM.PROC2 ---
Procedure Note - Detailed Date of Procedure 04/25/23 Pre-op Diagnosis pelvic pain Post-op Diagnosis Same (ovarian cyst, endometriosis) Procedure Performed Diagnostic laparoscopy Surgeon Jes Parr MD Anesthesia General Indications Pelvic pain Findings Endometriosis and scar tissue on the bilateral pelvic sidewalls. Left ovarian cyst, some mild adhesions around the left ovary Description of Procedure The patient was taken to the operating room. She was prepped and draped in the dorsal lithotomy position after induction general anesthesia. A 5 mm incision was made with a scalpel on the abdominal skin in the left upper quadrant of the abdomen. A 5 mm trocar was inserted into the intra-abdominal cavity under direct visualization the scope. In the same fashion a 5 mm left lower quadrant trocar was inserted and a 5 mm infraumbilical trocar was inserted. looked peritoneum was resected in a area beneath the bilateral ovaries. This is done with blunt and sharp dissection using cautery. The ureter was dissected out through that area. adhesions were taken down around the left ovary. The right ovary was suspended with a Stoney Tutu needle and 0 Vicryl. This was done by piercing right lower quadrant with Stoney Tutu needle and driving through the ovary, retrieving the suture on the contralateral side of the ovary and drawing it back to skin and holding it in place with hemostat. Left ovarian cyst ectomy was performed using cautery and sharp dissection. Interceed was placed over the bilateral areas that were dissected in the pelvic sidewalls. The pelvis was irrigated. The pneumoperitoneum was reduced. The trocars were removed. Skin was closed with subcuticular 4 micro. The patient's incisions were covered with Dermabond. She was taken recovery room in stable condition. Sponge lap and needle counts were correct x2. Complications No immediate complications Condition Stable Disposition Same day
[2023-04-25] MEDS: ONDANSETRON INJ 4 MG/2 ML VIAL IV PUSH (10:45)
[2023-04-25] MEDS: fentaNYL CITRATE INJ (*CRX) 100 MCG/2 ML VIAL 25 MCG IV PUSH ×2 (10:52→11:01)
[2023-04-25] MEDS: oxyCODONE HCL (*CRX) 5 MG TAB IR PO (11:35)
== END 2023-04-25 12:20 | disposition home or self-care (01) ==
PROVIDERS: PCP Nurse Practitioner Family; Visit Provider Obstetrics & Gynecology
PROC: (CPT 49320; principal; 2023-04-25 09:00)
DX: D27.1 Benign neoplasm of left ovary (principal); N80.353 Endometriosis of bilateral pelvic sidewall, unspecified depth; N73.6 Female pelvic peritoneal adhesions (postinfective); R10.2 Pelvic and perineal pain; F17.290 Nicotine dependence, other tobacco product, uncomplicated
CPT/HCPCS: 58662; 81001; 88305; A9270; J0696; J1100; J1885; J2250; J2405; J2704; J3010; J7030; J7120

== ENCOUNTER 2023-09-13 01:05 | Day surgery (SDC) | payer BC, OTHER, SELFPAY ==
[2023-08-16 11:10] VITALS: BMI 20.5
--- NOTE | 2023-08-16 11:14 | PC.NURSE ---
Addendum entered by Nely Kimble RN 09/01/23 10:56: PT TO ARRIVE AT 0600 ON 09/13/23 FOR SURGERY AT 0730. Original Note: Report to the Outpatient Waiting Room, entrance under the green pavilion located off [facility], at time 0800 on date 08/13/23. Planned Procedure Time: 1000. Time changes happen often and if your time is changed the preop area will call you the afternoon before. - You and your visitor will be asked to self-screen and do not enter if you have any COVID symptoms. - A mask is optional within the hospital at this time. Patients may have clear liquids (water, carbonated beverages, clear teas, apple juice) until 3 hours prior to surgery with a maximum of 20 ounces. - No food from midnight until time of surgery Take the following medications with a SIP of water the morning of surgery: N/A DO NOT STOP ANY OF YOUR OTHER PRESCRIPTION MEDICATIONS PRIOR TO SURGERY ?EXCEPT THE FOLLOWING Medications to discontinue per physician: N/A Date to take last dose: N/A Please no make-up, nail citizen of [place], hairspray, perfume, deodorant, or body powder the day of surgery. No jewelry (including any body piercings) or valuables the day of surgery, leave them at home. Please take a shower or bath the night before, or the morning of, surgery with an antibacterial soap. Wear comfortable, loose fitting clothing. - Jewelry must be removed prior to entering the operating room. Rings and piercings that are not removed may be cut off. - The hospital will not accept responsibility for valuables. - Please leave all valuables, including medications, at home the day of surgery. If you are going home after surgery, a licensed local company flatbed truck driver must drive you home. - NO public transportation without another adult if you receive anesthesia. - We recommend that an adult stay with you for 24 hours following discharge. - We also recommend that you do not drive, make important decision, drink alcoholic beverages, or take any drugs that were not prescribed by your health care provider for at least 24 hours after your discharge time. Follow any additional instructions given to you from your surgeon. If you or anyone in your household have experienced Covid symptoms in the past week, please notify your surgeon or the nurse liaison at the phone number below for possible testing. Telephone instructions given to PT - MYRANDA HINTON and asked if any additional questions and then verbalized understanding. Patient advised to call surgeon office or pre surgery nurse liaison [phone] if any additional questions.
--- NOTE | 2023-09-01 10:55 | PC.NURSE ---
Pt states no changes in medications or health history since initial interview. New pre-op instructions reviewed with pt. Pt denies further questions at this time.
[2023-09-13] VITALS (8 sets, daily range): BP systolic 91–110; BP diastolic 55–77; PULSE 58–78; RESP 12–16; TEMP 36.3–36.6; O2SAT 99–100
[2023-09-13] MEDS: LACTATED RINGERS 1,000 ML 30 ML IV CONT ×2 (06:20→08:37)
[2023-09-13] MEDS: KETOROLAC 15 MG/ML VIAL (*BKC) IV PUSH (06:23)
[2023-09-13] MEDS: ACETAMINOPHEN 500 MG TABLET 1000 MG PO (06:23)
--- NOTE | 2023-09-13 06:41 | P.PNAN_ITS ---
Anes - Initial Pre Proc Eval Procedure: Operation Date: 09/13/23 07:30 Proposed Procedures p Laparoscopic Left Ovarian Cystectomy - Jes Parr MD Date/Time: 09/13/23 06:41 Surgeon: Jes Parr MD Pre Op Diagnosis: Cyst of Left Ovaries Patient Data Age: 22 Gender: F Height: 1.73 m Weight: 59.5 kg Last Vital Signs Temp 36.3 C L 09/13/23 06:06 Pulse 78 09/13/23 06:06 Resp 16 09/13/23 06:06 BP 104/66 09/13/23 06:06 Pulse Ox 100 09/13/23 06:06 O2 Del Method Room Air 09/13/23 06:06 Allergies Allergy/AdvReac Type Severity Reaction Status Date / Time No Known Allergies Allergy Mild Verified 09/13/23 06:27 Home Medications Medication Instructions Recorded Confirmed Type No Home Medications 08/16/23 09/13/23 History Patient hx anesthesia problems: none Family hx anesthesia problems: none Results Review: All pre-operative results and documents have been reviewed as part of the pre- operative evaluation. [facility] Past Medical History Medical History Endometriosis Surgical History Surgical History H/O ovarian cystectomy S/P laparoscopic procedure Social History Social History Smoking status: Current every day smoker Tobacco type: e-cigarettes/vaping Second hand tobacco smoke exposure: Yes Additional smoking assessment comments: PT STATES ANN BEEN VAPING FOR SEVERAL YEARS NOW. Alcohol intake: never Substance use: never Substance use type: does not use Lack of Transportation: No Lack of Food: Never True Current Housing: I Have Housing Concerned About Future Housing: No Difficulty Paying Gas/Electric Bills: No Difficulty Paying for Meds: No Currently Unemployed: No Education: Trade/Vocational Certificate Difficulty w/ Childcare or Family Care: No Living arrangements: with family Gender identity (if verbalized by the patient): Female Spiritual care concerns: No Anes - Eval Final PreProcedure Day of Procedure 09/13/23 06:41 Patient weight: thin Heart: regular rate and rhythm Lungs: clear to auscultation Airway: Mallampati scale class II Last oral intake: >/= 8 hours ASA classification: II Emergent: no Anesthetic plan: proceed Anesthesia type and monitoring: general ETT and standard monitoring Results Review: All pre-operative results and documents have been reviewed as part of the pre- operative evaluation. Informed Consent: The patient's anesthetic plan and its attendant risks and benefits were discussed with the patient/family/POA. Questions were solicited and answers provided to the satisfaction of the patient/family/POA.
[2023-09-13] MEDS: SCOPOLAMINE 1 MG PATCH 1 PATCH TRANSDERM (07:05)
--- NOTE | 2023-09-13 07:25 | PM.IMHP ---
H&P: HPI History of Present Illness Date/Time: 09/13/23 07:25 Chief complaint - pelvic pain history of present illness - this patient is a 22-year-old female with pelvic pain and a possible pelvic mass. She has an ovarian cyst. We have agreed performed laparoscopic left ovarian cystectomy. It we are going to evaluate the mass. She understands the procedure. She understands the risk. She understands that injuries may occur that resulted hospitalization, more surgery, and severe illness. She she understands that there is risk of hemorrhage infection. She denies any nausea, vomiting, fever, chills. She denies any chest pain or shortness of breath. Chief Complaint: Pelvic pain Review of Systems Review of Systems: All systems reviewed & are unremarkable except as noted in HPI and below Constitutional: Constitutional: Denies chills, Denies fatigue, Denies fever(s) and Denies weakness Eyes: Eyes: Denies blurry vision, Denies change in vision, Denies loss of peripheral vision, Denies loss of vision, Denies other visual disturbances and Denies eye pain ENT: Denies vertigo, Denies dizziness, Denies hearing loss, Denies mouth pain, Denies nasal obstruction, Denies neck mass and Denies neck pain Cardiovascular: Cardiovascular: Denies chest pain, Denies diaphoresis, Denies syncope, Denies leg edema and Denies dyspnea Respiratory: Respiratory: Denies chest congestion, Denies cough, Denies hemoptysis, Denies dyspnea and Denies wheezing Gastrointestinal: Gastrointestinal: Denies abdominal pain, Denies constipation, Denies diarrhea, Denies nausea and Denies vomiting Genitourinary: Genitourinary: Denies hematuria, Denies change in libido, Denies nocturia, Denies genital lesions, Denies flank pain and Denies urinary urgency Musculoskeletal: Musculoskeletal: Denies abnormal gait, Denies back pain, Denies myalgias, Denies arthralgias, Denies joint swelling, Denies muscle weakness and Denies neck pain Integumentary/Breasts: Skin/Breast: Denies swelling, Denies breast pain, Denies breast mass, Denies dry skin, Denies nipple discharge, Denies unusual bruising and Denies jaundice Neurologic: Denies Neuro-related abnormal movements, Denies Abnormal speech present, Denies abnormal gait, Denies behavioral changes, Denies confusion, Denies vertigo, Denies dizziness, Denies syncope, Denies loss of vision, Denies memory loss, Denies convulsions and Denies weakness Psychiatric: Psychiatric: Denies abnormal sleep pattern, Denies behavioral changes, Denies change in libido, Denies confusion, Denies depression, Denies anhedonia and Denies memory loss Endocrine: Endocrine: Reports no additional endocrine complaints, Denies change in libido and Denies fatigue Hematologic/Lymphatic: Hematologic/Lymphatic: Reports no additional hematologic/lymphatic complaints Allergic/Immunologic: Allergic/Immunologic: Reports no additional allergic/immunologic complaints and Denies wheezing PMFSH Past Medical History Medical History Endometriosis Surgical History Surgical History H/O ovarian cystectomy S/P laparoscopic procedure Social History Social History Smoking status: Current every day smoker Tobacco type: e-cigarettes/vaping Second hand tobacco smoke exposure: Yes Additional smoking assessment comments: PT STATES ANN BEEN VAPING FOR SEVERAL YEARS NOW. Alcohol intake: never Substance use: never Substance use type: does not use Lack of Transportation: No Lack of Food: Never True Current Housing: I Have Housing Concerned About Future Housing: No Difficulty Paying Gas/Electric Bills: No Difficulty Paying for Meds: No Currently Unemployed: No Education: Trade/Vocational Certificate Difficulty w/ Childcare or Family Care: No Living arrangements: with family Gender
--- NOTE | 2023-09-13 07:29 | WPDHPUPDATE1 ---
History and Physical Update Update Date/Time: 09/13/23 07:29 History and Physical has been reviewed, including an updated exam of the patient. There are NO changes in the patient's condition. Risks, benefits, and alternatives have been discussed and questions answered. Patient agrees to proceed with procedure.
--- NOTE | 2023-09-13 08:58 | W.PM.PROC2 ---
Procedure Note - Detailed Date of Procedure 09/13/23 Pre-op Diagnosis Cyst of Left Ovaries Post-op Diagnosis Same ( With pelvic adhesions and hemoperitoneum) Procedure Performed Laparoscopic left ovarian cystectomy and adhesiolysis- 25 minutes Surgeon Jes Parr MD Anesthesia General Indications Pelvic pain Findings hemoperitoneum, dense adhesions between the left ovary and the pelvic sidewall. No discrete mass, likely mass seen on ultrasound was the scar tissue and matted area lateral and inferior to the ovary. 3.5 cm left ovarian cyst. Description of Procedure The patient was taken to the operating room. She was prepped and draped in the dorsal lithotomy position after induction general anesthesia. A 5 mm incision was made with a scalpel on the abdominal skin in the left upper quadrant of the abdomen. A 5 mm trocar was inserted into the intra-abdominal cavity under direct visualization the scope. In the same fashion a 5 mm left lower quadrant trocar was inserted and a 5 mm infraumbilical trocar was inserted. adhesiolysis was performed between left ovary in the left lateral side pelvic sidewall. The ureter was identified. The ureter was dissected up past the ovary. The ovary was from the pelvic sidewall using blunt , sharp dissection and cautery. left ovarian cystectomy was performed. The cyst was ruptured. Cyst capsule was densely scarred to the ovary. Removal of the capsule was abandoned. The pelvis was irrigated. The pneumoperitoneum was reduced. The trocars were removed. Skin was closed with subcuticular 4 micro. The patient's incisions were covered with Dermabond. She was taken recovery room in stable condition. Sponge lap and needle counts were correct x2. Estimated Blood Loss 25 Complications No immediate complications Condition Stable Disposition Same day
[2023-09-13] MEDS: fentaNYL CITRATE INJ (*CRX) 100 MCG/2 ML VIAL 25 MCG IV PUSH ×2 (09:05→09:10)
[2023-09-13] MEDS: oxyCODONE HCL (*CRX) 5 MG TAB IR PO (09:52)
== END 2023-09-13 10:26 | disposition home or self-care (01) ==
PROVIDERS: PCP Nurse Practitioner Family; Visit Provider Obstetrics & Gynecology
PROC: (CPT 49320; principal; 2023-09-13 07:30)
DX: N83.202 Unspecified ovarian cyst, left side (principal); K66.1 Hemoperitoneum; F17.290 Nicotine dependence, other tobacco product, uncomplicated; Z98.890 Other specified postprocedural states
CPT/HCPCS: 58662; A9270; J1100; J1170; J1596; J1885; J2250; J2405; J2704; J2710; J3010; J7030; J7120

== ENCOUNTER 2024-12-24 15:12 | Emergency (ER) | payer MEDICAID, SELFPAY ==
[2024-12-24] VITALS (8 sets, daily range): BP systolic 98–131; BP diastolic 60–95; PULSE 70–122; RESP 16–18; TEMP 36.1–36.7; O2SAT 97–99
--- NOTE | ~2024-12-24 | US_ITS ---
EXAMINATION: US OB <=14 wk fetus w TV DATE: 12/24/2024 18:53 CDT INDICATION: Vaginal bleeding COMPARISON: None TECHNIQUE: Real-time transabdominal obstetric ultrasound. FINDINGS: 2 para 1 Estimated date of delivery by last menstrual period is 08/12/2025 The uterus measures 9.2 x 6.7 x 7.2 cm. A gestational sac is identified within the uterus. Adjacent to the gestational sac is a irregular focus of decreased echogenicity measuring 3 x 1.5 x 2. 5 cm, consistent with a subchorionic hemorrhage for which short-term follow-up is needed. A pole is identified within the gestational sac, with a crown-rump length that measures 1.17 cm , corresponding to an approximate gestational age of 7 weeks and 2 days. cardiac activity is identified at a rate of 142 bpm. The right ovary measures 3.9 x 2.2 x 2.0 cm. Corpus luteal cyst detected within the right ovary with trace free fluid in the right lower quadrant. The left ovary measures 3.1 x 1.7 x 2.8 cm. IMPRESSION: Single intrauterine gestation with an approximate gestational age of 7 weeks and 2 days, with c ardiac activity identified. Subchorionic hemorrhage for which short-term follow-up is needed. Reviewed, dictated and finalized at location A. IMPRESSION: Single intrauterine gestation with an approximate gestational age of 7 weeks an d 2 days, with cardiac activity identified. Subchorionic hemorrhage for which short-term follow-up is needed.
--- OUTSIDE RECORDS SUMMARY | 2024-12-24 15:14 | XMS_ITS | Clinical Summary ---
Author Organization [facility] Address [address] [place] [address] Care Team Providers Care Bilingual Customer Service Specialist Name Role Phone Unavailable Primary Care Provider Unavailabl e Source Comments [facility],non-owned Affiliates and Associated Physician Practices is amultiple site organization consisting of ambulatory clinics and hospital sitesin [place], [place], [place] and [place]. This disclosure is being madepursuant to the Care Everywhere program and may not contain all information available regarding this patient. Last updated 18.[facility] Allergies No known active allergies Medications * Be aware that medications may not be up to date on this document. Alwaysverify current medications with the patient. acetaminophen (TYLENOL) 500 MG tablet Take 1 Tab by mouth every 4 hours as needed Maximum allowable Acetaminophen amount = 4 Grams (4000 mg) / 24 hours. 5 Active Additional Information Patient not taking.Reported on 04/22/2024 levonorgestrel (Mirena) 20 MCG/DAY IUD by Intrauterine route as directed Active Other Insert 1 suppository into the vagina every 12 hours as needed Valium/Baclofen 5/4 mg; place one suppository in the vagina as needed for pain, up to every 12 hours 5 Each 4 Active Active Problems Problem Noted Date Diagnosed Date Strain of mid-back 04/14/2015 Fracture of bone Overview (10/31/2015): right 1 rib fx 2015 IMO Updt Fracture of bone Overview (10/31/2015): right 1 rib fx 03 2015 IMO Updt Fracture of bone Overview (10/31/2015): right 1 rib fx 03 2015 IMO Updt Social History Tobacco Use Types Packs/Day Years Used Date Smoking Tobacco: Every Day Cigarettes Passive Smoke Exposure: Never Smokeless Tobacco: Never Tobacco Cessation:Ready to Q uit: Not Asked Comments:vape Alcohol Use Standard Drinks/Week Comments Yes 0 (1 standard drink = 0.6 oz pur e alcohol) social Comments No Sex and Gender Information Value Date Recorded Sex Assigned at Not on file Legal Sex Female 5:42 AM [employer] Gender Identity Not on file Sexual Orientation Not on file Last Filed Vital Signs Vital Sign Reading Time Taken Comments Blood Pressure 112/70 04/22/2024 11:39 AM CDT Pulse 86 04/14/2015 12:50 PM CDT Temperature 36.6 C (97.8 F) 04/14/2015 12:50 PM CDT Respiratory Rate 12 04/14/2015 12:50 PM CDT Oxygen Saturation 99% 04/14/2015 7:31 AM CDT Inhaled Oxygen Concentration - - Weight 64.4 kg (142 lb) 04/22/2024 11:39 AM CDT Height 172.7 cm (5' 8 ) 04/22/2024 11:39 AM CDT Body Mass Index 21.59 04/22/2024 11:39 AM CDT Plan of Treatment Health Maintenance Due Date Last Done Comments PAP SMEAR 2002 HPV VACCINE (1 - 3-dose series) 2017 MENINGOCOCCAL (Group B) VACCINE SHARED DECISION-MAKING (1 of 2 - Standard) 2018 HEPATITIS C SCREENING 10/03/2020 DTAP/TDAP/TD VACCINES (1 - Tdap) 2021 HEPATITIS B VACCINE (1 of 3 - 19+ 3-dose series) 2021 PNEUMOCOCCAL VACCINE (1 of 2 - PCV) 2021 COVID-19 VACCINE (3 - 2023- season) 2024 12/25/2022, 09/30/2021 DEPRESSION SCREENING 08/07/2024 CHLAMYDIA/GONORRHEA SCREENING 12/14/2024 12/15/2023 INFLUENZA VACCINE (Season Ended) 2025 07/04/2023, 05/11/2020, 05/18/2019, Additional history exists ZOSTER VACCINE (1 of 2) 2052 HIV SCREENING Completed 05/20/2022 HIB VACCINE Aged Out No longer eligi ble based on patient's age to complete this topic MENINGOCOCCAL GROUPS A/C/Y/W VACCINE Aged Out No longer eligible based on patient's age to complete this topic Insurance [facility] * Guarantor: MIRYAM HAIR Account Type Relation to Patient Date of Phone Billing Address Personal/Family Other Advance Directives * Full Code (Latest Code Status on File) Date Activated Date Inactivated Comments 04/13/2015 9:18 PM 04/14/2015 4:19 PM
--- OUTSIDE RECORDS SUMMARY | 2024-12-24 15:14 | XMS_ITS | Data Portability ---
Author Organization [place] [employer], Main Office Address [address] [place] [address] Assessment Encounter Date Assessment Date Assessment LastModified by Organization Details LastModified Time 07/27/2023 07/27/2023 This note is dictated and transcribed by [employer]. Java Lead Engineer variances may occur. Despite proofreading, typographical errors may occur. Occasional wrong-word or 'hrfnj-[id number]' substitutions may have occurred due to the inherent limitations of voice recording. Read the chart carefully and recognize, using context, where substitutions have occurred. Not available 08/06/2023 10:04:25 02/29/2024 02/29/2024 This note is dictated and transcribed by [employer]. [employer] variances may occur. Despite proofreading, typographical errors may occur. Occasional wrong-word or 'bcvhw-h-obuj' substitutions may have occurred due to the inherent limitations of voice recording. Read the chart carefully and recognize, using context, where substitutions have occurred. Not available 02/29/2024 12:09:10 Plan of Treatment Reminders Order Date Submit Date Provider Last Modified By Organization Details Last Modified Time Details Appointments None recorded. Lab CT + NG + TV, DNA, urine/swab 2023 [facility], [address] [place], [address], 4 09:48:02 hepatitis C virus Ab, serum 2023 024 [facility], [address] [place], [address], 4 09:48:02 CMP, serum or plasma [id number] [facility], [address] [place], [address], 4 11:22:46 CBC w/ auto diff 2023 [facility], [address] [place], [address], 4 09:48:03 vitamin D, 25-hydroxy , total, serum 2023 [facility], [address] [place], [address], 4 09:48:03 HbA1c (hemoglobi n A1c), blood 2023 [facility], [address] [place], [address], 4 09:48:03 lipid panel, serum 2023 [facility], [address] [place], [address], 4 09:48:03 iron + TIBC + ferritin, serum 2023 [facility], [address] [place], [address], 4 09:48:03 TSH + free T4, serum 2023 [facility], [address] [place], [address], 4 09:48:[address] referral - History of depression 2023 [facility] St[facility]alde [facility], [address] [facility] [address], [address], 5 04:22:31 Procedures None recorded. Surgeries None recorded. Imaging None recorded. Medication Orders bupropion HCl XL 150 mg 24 hr tablet, extended release 2023 [facility]/Pharmacy #[id number], [address], [place], [address], 14:57:27 ketoconazo le 2 % topical cream 2023 024 [facility]/Pharmacy #[id number], [address], [place], [address], 12:09:33 Patient TargetsNo targets recorded. Patient Instructions Encounter Date Encounter Id Patient Instructions Last Modified By Organization Details Last Modified Time 07/27/2023 [id number] paronychia: care instructions concepción Not available 07/27/2023 15:47:03 Patient is to so ak in warm Epsom salt soaks math for approximately 20 min daily for 5-7 days until infection has resolved. Patient is to dress the wound daily with topical antibiotic ointment and Band-Aid. Patient to monitor for signs of infection, if worsens seek medical attention at the nearest ER. [email or web address] Not available 08/06/2023 10:05:04 02/29/2024 [id number] Follow up in 6 months Obtain labs Prescription sent to pharmacy [email or web address] Not available 02/29/2024 14:56:05 Reason for Referral Psychiatrist Referral for An xiety History of depression Referring Physician: Steff Harrell, Internal Medicine, Encounter Date: 02/29/2024 Results Created Date Observation Date Name Description Value Unit Range Abnormal Flag Note LastModifiedBy Organization Detail LastModifiedTime 01/11/2001/10/2022 US, obste tric, 1st trime ster No observ ation record ed. [id number], [address], 10/05/2022 05:18:19 06/16/20 22 06/16/2022 US, obste tric No observ ation record ed. [id number] [address] [place], [address], 10/05/2022 05:18:19 Result Notes None recorded. Problems Name Problem SNOMED Code Status Onset Date Resolution Date Notes Provider Name and Address Organization Details Recorded Time Acute sinusitis 70040455 Active 2021 Not Available [facility] 3 05:11:17 Closed fracture of shaft of radius 8927161 Active Not Available [facility] 3 05:11:17 Urinary tract infectious disease 27563450 Active 2021 Not Available [facility] 3 05:11:17 Migraine 74522130 Active 2022 Steff Harrell APRN [address], [place], [address] , [employer] 4 13:53:39 Ingrowing toenail 551658505 Active 2022 Garth Brian DPM [address], [address], [place], [address] , [employer] 3 14:16:15 Cyst of ovary 27888616 Active Steff Harrell APRN [address], [address] [employer], [place], [address] , [employer] 4 13:54:16 Onychomycosis of toenails 875897371 Active 2023 Garth Brian DPM [address], [address], [place], [address] , [employer] 4 12:09:01 Dystrophia unguium 10458562 Active 2023 Garth Brian DPM [address], [address], [place], [address] , [employer] 4 12:09:05 Anxiety 20630670 Active 2023 Steff Harrell APRN [address], [address], [place], [address] , [employer] 4 14:47:53 Depressive disorder 61069637 Active 2023 Steff ELVIS Harrell [address], [address], [place], [address] , [facility] [employer] [facility] [employer] [facility] 4 14:48:06 Intrauterine contraceptive device in situ 916553463 Active 2023 Steff Harrell APRN [address], [address], [place], [address] , [facility] [employer] [facility] [employer] [facility] 4 14:57:10 Allergic contact dermatitis 712335599 Active Steff ELVIS Harrell [address], [address], [place], [address] , [employer] [facility] [employer] [facility] 4 20:02:14 Notes:FEMALE PROBLEMS/INFECT IONS Problem Notes None recorded. Procedures Surgical History Date Name Laterality Status Provider Name and Address Organization Details Recorded Time 02/29/20 24 Nail Debridement completed Garth Brian DPM [address], [place], [address], [facility] [employer] [facility] [employer] [facility] 02/29/2024 12:33:56 07/27/20 23 Blank Procedure Note completed Garth Brian DPM [address], [place], [address], [facility] [employer] [facility] [employer] [facility] 07/27/2023 15:46:29 04/03/20 23 Nail Debridement completed Garth Brian DPM [address], [address], [place], [address], [facility] [employer] [facility] [employer] [facility] 04/03/2023 14:14:45 09/04/19 21 tonsilectomy/tristen noids completed Not Available [facility] 10/05/2022 05:05:00 08/07/19 21 Removal of ovarian cyst(s) completed Not Available [facility] 10/05/2022 05:05:00 tympanostomy completed Not Available [facility] 10/05/2022 05:05:00 Imaging Results Imaging Date Name Status LastModified by Organiz ation Details LastModified Time 06/16/2022 US, obstetric completed [id number] [facility] [address], [place], [address], 10/05/2022 05:18:19 01/10/2022 US, obstetric, 1st trimester completed [id number] [facility] [address] [facility] [address], [place], [address], 10/05/2022 05:18:19 Procedure Notes None recorded. Medical Equipment None Reported. Allergies Allergen ID Allergen Name Allergen Category Reaction Reaction Severity Criticality Documentation Date Start Date Code Code System Note Provider Name and Address Organization Details Recorded Time 14371 No known allergy (situatio n) Not available Not available Not available Not available 02/22/2024 71773 6003 SNOMED Steff Harrell, CYLINDER [employer] [address] [facility] [address], [place], [address] , [facility] [employer] 13:54:25 No known drug allergies Medications Name Sig Start Date Stop Date Status Note LastModified by Organization Details LastModified Time amoxicillin 500 mg capsule TAKE 1 CAPSULE BY MOUTH TWICE A DAY FOR 10 DAYS 02/28 completed Not Available Not Available Not Available doxycycline hyclate 100 mg capsule TAKE 1 CAPSULE BY MOUTH TWICE DAILY FOR 10 DAYS DIRECTED 02/21 completed Not Available Not Available Not Available clindamycin HCl 300 mg capsule TK 1 C PO Q 8 H FOR 7 DAYS active Not Available Not Available No t Available cetirizine 10 mg tablet TAKE 1 TABLET BY MOUTH EVERY DAY 02/28 completed Not Available Not Available Not Available azithromyci n 250 mg tablet TK 2 TS PO ON DAY 1, THEN TK 1 T PO D FOR 4 DAYS 06/24 completed Not Available Not Available Not Available fluconazole 150 mg tablet TAKE 1 TABLET BY MOUTH EVERY OTHER DAY 02/21 completed Not Available Not Available Not Available benzonatate 200 mg capsule Take 1 capsule 3 times a day by oral route as needed. 04/03 completed Not Available Not Available Not Available valacyclovi r 1 gram tablet TAKE 1 TABLET BY MOUTH TWICE A DAY X10 DAYS 02/28 completed Not Available Not Available Not Available hydrocodone 5 mg-acetamin ophen 325 mg tablet TAKE 1 TABLET BY MOUTH EVERY 6 HOURS 06/24 completed Not Available Not Available Not Available Isovue-370 76 % intravenous solution 100 mL by intraven. route. 03/04 completed Not Available Not Available Not Available metronidazo le 0.75 % (37.5 mg/5 gram) vaginal gel INSERT 1 APPLICATO RFUL VAGINALLY DAILY AT BEDTIME FOR 5 NIGHTS 02/21 completed Not Available Not Available Not Available prednisone 20 mg tablet TAKE 3 TABLETS BY MOUTH ONCE DAILY FOR 5 DAYS 02/21 completed Not Available Not Available Not Available sertraline 100 mg tablet TAKE 1 TABLET BY MOUTH EVERY DAY active Not Available Not Available No t Available metronidazo le 500 mg tablet TAKE 1 TABLET BY MOUTH TWICE A DAY 02/28 completed Not Available Not Available Not Available ciprofloxac in 500 mg tablet TAKE 1 TABLET BY MOUTH EVERY 12 HOURS 02/21 completed Not Available Not Available Not Available ketorolac 30 mg/mL (1 mL) injection solution 30 mg by injection route. 03/05 completed Not Available Not Available Not Available amoxicillin 500 mg tablet TAKE 1 TABLET BY MOUTH EVERY 8 HOURS FOR 7 DAYS active Not Available Not Available No t Available Macrobid 100 mg capsule Take 1 capsule twice a day by oral route for 5 days. 04/03 completed Not Available Not Available Not Available cyproheptad ine 4 mg tablet TK 1 T PO BID active Not Available Not Available No t Available oxycodone-a cetaminophe n 5 mg-325 mg tablet TAKE 1 TABLET BY MOUTH EVERY 4 HOURS NEEDED FOR PAIN 02/28 completed Not Available Not Available Not Available amoxicillin 875 mg tablet 01/12 completed Not Available Not Available Not Available phenazopyri dine 100 mg tablet TK 2 TS PO TID WF FOR 2 DAYS active Not Available Not Available No t Available benzonatate 100 mg capsule TAKE 1 CAPSULE BY MOUTH EVERY 8 HOURS NEEDED 02/21 completed Not Available Not Available Not Available cephalexin 500 mg capsule TAKE 1 CAPSULE BY MOUTH EVERY 6 HOURS FOR 10 DAYS 04/03 completed Not Available Not Available Not Available nitrofurant oin macrocrysta l 100 mg capsule TAKE 1 CAPSULE BY MOUTH EVERY 12 HOURS FOR 7 DAYS 04/03 completed Not Available Not Available Not Available polymyxin B sulfate 10,000 unit-trimet hoprim 1 mg/mL eye drops INSTILL 1 DROP INTO THE AFFECTED EYE(S) EVERY 3 HOURS FOR 10 DAYS 02/21 completed Not Available Not Available Not Available sodium chloride 0.9 % intravenous solution 50 mL by intraven. route. 03/04 completed Not Available Not Available Not Available azelastine 137 mcg (0.1 %) nasal spray ADMINISTE R 1 SPRAY INTO EACH NOSTRIL EVERY 12 HOURS 02/28 completed Not Available Not Available Not Available methylpredn isolone 4 mg tablets in a dose pack TAKE DIRECTED 06/24 completed Not Available Not Available Not Available albuterol sulfate HFA 90 mcg/actuati on aerosol inhaler Inhale 2 puffs every 4 hours by inhalatio n route as needed. 04/03 completed Not Available Not Available Not Available ketoconazol e 2 % topical cream APPLY TO THE AFFECTED TOENAIL AREA(S) BY TOPICAL ROUTE ONCE DAILY active Not Available Not Available No t Available fluticasone propionate 50 mcg/actuati on nasal spray,suspe nsion ADMINISTE R 1 SPRAY INTO EACH NOSTRIL EVERY 12 HOURS 02/28 completed Not Available Not Available Not Available amoxicillin 875 mg-potassiu m clavulanate 125 mg tablet TAKE 1 TABLET BY MOUTH TWICE A DAY FOR 7 DAYS 02/28 completed Not Available Not Available Not Available oxycodone 5 mg tablet TAKE 1 TABLET BY MOUTH EVERY 12 HOURS NEEDED FOR PAIN active Not Available Not Available No t Available escitalopra m 10 mg tablet Take 1 tablet every day by oral route. 04/03 completed Not Available Not Available Not Available cyclobenzap rine 5 mg tablet TAKE 1 TABLET BY MOUTH UP TO 3 TIMES DAILY NEEDED 02/28 completed Not Available Not Available Not Available 08/26 (21) 1 mg-20 mcg tablet TAKE 1 TABLET BY MOUTH EVERY DAY 02/28 completed Not Available Not Available Not Available bupropion HCl XL 150 mg 24 hr tablet, extended release TAKE 1 TABLET BY MOUTH EVERY DAY active Not Available Not Available No t Available Symbicort 80 mcg-4.5 mcg/actuati on HFA aerosol inhaler Inhale 2 puffs twice a day by inhalatio n route. 08/28 /2023 completed Not Available Not Available Not Available Nexplanon 10/12 completed Not Available Not Available Not Available 28 mg iron-800 mcg tablet TAKE 1 TABLET BY MOUTH DIRECTED 04/03 completed Not Available Not Available Not Available Classic 28 mg iron-800 mcg tablet TAKE 1 TABLET BY MOUTH DIRECTED 02/28 completed Not Available Not Available Not Available Afluria Qd 2019- (36 mos up)(PF)60 mcg (15 mcg x4)/0.5 mL IM syringe ADM 0.5ML IM UTD 10/07 completed Not Available Not Available Not Available BinaxNOW COVID-19 Ag Self Test kit USE DIRECTED 02/21 completed Not Available Not Available Not Available Vitals Date Recorded Body mass index (BMI) Body height Oxygen saturation Oxygen saturation in Arterial blood by Pulse oximetry Heart rate Body temperature Body weight Systolic blood pressure Diastolic blood pressure Provider Name and Address Organization Details Last Updated DateTime 1 19 kg/m2 172.72 cm 98 % 98 % 98 /min 97.6 [degF] 36200.0 5 g 120 mm[Hg] 78 mm[Hg] Not Available [employer] 3 05:09:27 Date Recorded Heart rate Respiratory rate Oxygen saturation Oxygen saturation in Arterial blood by Pulse oximetry Systolic blood pressure Diastolic blood pressure Provider Name and Address Organization Details Last Updated DateTime 3 60 /min 14 /min 99 % 99 % 141 mm[Hg] 94 mm[Hg] Rani Barraza [employer] 3 13:58:40 Date Recorded Body height Body mass index (BMI) Body mass index (BMI) Percentile per age and sex Body weight Provider Name and Address Organization Details Last Updated DateTime 04/03/2023 172.72 cm 20.5 kg/m2 34 % 49224.97 g Kathy Weldon [employer] 04/03/2023 14:00:52 Date Recorded Body height Provider Name an d Address Organization Details Last Updated DateTime 02/29/2024 172.72 cm Daly Canseco MA PA [employer] 02/29/2024 11:28:37 Date Recorded Body mass index (BMI) Body weight Heart rate Body temperature Respiratory rate Oxygen saturation Oxygen saturation in Arterial blood by Pulse oximetry Systolic blood pressure Diastolic blood pressure Provider Name and Address Organization Details Last Updated DateTime 4 20.5 kg/m2 03096.9 7 g 62 /min 97.3 [degF] 14 /min 98 % 98 % 110 mm[Hg] 70 mm[Hg] Darlene Almanza [facility] [employer] [facility] 4 11:30:46 Date Recorded Body height Body mass index (BMI) Body weight Body temperature Heart rate Oxygen saturation Oxygen saturation in Arterial blood by Pulse oximetry Systolic blood pressure Diastolic blood pressure Provider Name and Address Organization Details Last Updated DateTime 4 172.72 cm 21.1 kg/m2 90904.3 4 g 98.3 [degF] 75 /min 98 % 98 % 108 mm[Hg] 60 mm[Hg] Stella Shafer MA [facility] [employer] [facility] 4 14:39:02 Social History Question Answer Notes LastModified by Organizat ion Details LastModified Time Tobacco Smoking Status Never Smoker Not Available [facility] 10/05/2022 05:03:55 Do You Have An Advance Directive? No [id number] Information not available 10/05/2022 What Is Your Level Of Caffeine Consumption? Heavy [id number] Information not available 10/05/2022 How Much Tobacco Do You Chew? None [id number] Information not available 10/05/2022 In The 14 Days Before Symptom Onset, Have You Had Close Contact With A Laboratory-confirm ed COVID-19 While That Case Was Ill? No [id number] Information not available 10/05/2022 In The 14 Days Before Symptom Onset, Have You Had Close Contact With A Person Who Is Under Investigation For COVID-19 While That Person Was Ill? No [id number] Information not available 10/05/2022 What Type Of Diet Are You Following? REGULAR [id number] Information not available 10/05/2022 Which Illicit Or Recreational Drugs Have You Used? None [id number] Information not available 10/05/2022 Have There Been Any Changes To Your Family Or Social Situation? No Information no t available 02/29/2024 Are There Any Guns Present In Your Home? No [id number] Information not available 10/05/2022 Do You Use Insect Repellent Routinely? No Information not available 02/29/2024 Where Do You Live? Apartment Inform ation not available 02/29/2024 What Was The Date Of Your Most Recent Tobacco Screening? 02/29/2024 Information not available 02/29/2024 How Many Children Do You Have? 0 Information not available 02/29/2024 Do You Have Any Pets? No Information not available 02/29/2024 What Is Your Relationship Status? Single Information not available 02/29/2024 Do You Use Your Seat Belt Or Car Seat Routinely? Yes Information not available 02/29/2024 Do You Have Smoke And Carbon Monoxide Detectors In Your Home? Yes Information not available 02/29/2024 Are You Passively Exposed To Smoke? No Information no t available 02/29/2024 Are There Any Smokers In Your House? No Information not available 02/29/2024 How Much Tobacco Do You Smoke? No [id number] Information not available 10/05/2022 Do You Use Sunscreen Routinely? Yes [id number] Information not available 10/05/2022 How Many Years Have You Smoked Tobacco? 0 [id number] Information not available 10/05/2022 Have You Recently Traveled Abroad? No Information not available 02/29/2024 Do You Have Any Dietary Restrictions? No Information not available 02/29/2024 How Many Years Have You Used E-cigarettes Or Vape? 4 Information not available 02/29/2024 Sex: Unknown Functional Status Question Answer Note LastModified by Organizat ion Details LastModified Time Do you use any illicit or recreational drugs? No Information not available 02/29/2024 Do you or have you ever used any other forms of tobacco or nicotine? Yes Information not available 02/29/2024 What is your level of alcohol consumption? Occasional Information not available 04/03/2023 Do you or have you ever used smokeless tobacco? Never used smokeless tobacco [id number] Information not available 10/05/2022 Are you currently employed? Yes Information not available 02/29/2024 What is your occupation? [employer] [id number] Information not available 10/05/2022 Do you or have you ever used e-cigarettes or vape? Current user of electronic cigarettes Information not available 02/29/2024 What is your exercise level? Moderate Information not available 02/29/2024 Mental Status Question Answer Note LastModified by Organization D etails LastModified Time Do you feel stressed (tense, restless, nervous, or anxious, or unable to sleep at night)? [id number] Information not available 02/29/2024 Family History Relationship Description Onset Age of this Age Resolved Age Notes LastModified by Organization Details LastModified Time Mother Diabetes mellitus [id number] Not available 10/05/2022 05:05:06 Mother Lupus erythematosu s [id number] Not available 10/05/2022 05:05:06 Father Diabetes mellitus Not available 2022 14:02:36 Unspecified Relation Family history of malignant neoplasm [employer] Not available 04/03/2023 14:02:56 Unspecified Relation Hypertensive disorder [employer] Not available 04/03/2023 14:03:12 Medical History Condition Response NERVE DISEASE N BLINDNESS N RHEUMATIC FEVER N KIDNEY STONES N BLADDER PROBLEMS N OTHER # 1 N POLIO N LUNG DISEASE/DISORDER N RADIATION / CHEMOTHERAPY N COPD N Other # 2 N BLOOD DISEASES N SURGERY N EAR OR HEARING PROBLEMS N MUMPS N BOWEL PROBLEMS N DEPRESSION (INCLUDING POST ) N STROKE/TIA N ULCERS N BENIGN PROSTATIC HYPERPLASIA N MEASLES N MYOCARDIAL INFARCTION N OBESITY N GERD/NAUSEA N ANEURYSM N URINARY/BLADDER/KIDNEY PROBLEMS N INPATIENT PSYCH CARE N CORONARY ARTERY DISEASE (CAD) N ADDICTION CONCERNS N ENDOMETRIOSIS N Impotence N USE OF BLOOD THINNERS N SKIN PROBLEMS N GASTROINTESTINAL DISORDER N PERIPHERAL VASCULAR DISEASE N MUSCLE,JOINT OR BONE PROBLEMS N GASTROINTESTINAL BLEEDING N BLOOD CLOTS N ASTHMA N CATARACTS N ERECTILE DYSFUNCTION N VARICOSITIES N GI PROBLEMS N Low Testosterone N INFERTILITY N AIDS/HIV N LIVER DISEASE N MALE HYPOGONADISM N HYPERTENSION N Deficiency N ANXIETY DISORDER N BLOOD TRANSFUSION N ANEMIA/BLOOD DISORDER N CHRONIC EAR INFECTIONS N BRONCHITIS N TUBERCULOSIS N GLAUCOMA N FOOT PROBLEM N DIVERTICULITIS N SLEEP APNEA N CHICKENPOX N INFECTIOUS DISEASE N HEART ARRHYTHMIA N PROSTATE N INSOMNIA N HIGH CHOLESTEROL / HYPERLIPIDEMIA N HYPERTHYROIDISM N EYE PROBLEMS N NEUROLOGICAL PROBLEMS N EDEMA N CHRONIC PAIN SYNDROME N HYPOTHYROIDISM N CAROTID BLOCKAGE N CONSTIPATION N BACK / NECK PROBLEMS N HAVE YOU BEEN HOSPITALIZED OR SEEN IN [facility] IN THE PAST YEAR ? N ATHEROSCLEROSIS N BREAST PROBLEMS N DIALYSIS N ECZEMA N OSTEOPOROSIS N ARTHRITIS N APPENDICITIS N DIABETES, TYPE N BAD TEETH N ENT N HEARTBURN / REFLUX N AUTISM SPECTRUM DISORDER (ASD) N HEPATITIS / LIVER DISEASE N PULMONARY DISEASE N GOUT N SLEEP DISORDER N ALZHEIMER'S DISEASE N Brain Problems N HERPES N DEMENTIA N HEADACHES/MIGRAINES Y SEIZURES/EPILEPSY N VASCULAR DISEASE N PACEMAKER N Blood Disorder N DIZZINESS N HEART DISEASE/HEART PROBLEMS N KIDNEY DISEASE N MULTIPLE SCLEROSIS N CARDIAC ARRHYTHMIA N CANCER: SPECIFY N ANESTHESIA COMPLICATIONS N ATRIAL FIBRILLATION N Gall Stones N PULMONARY EMBOLISM N AUTOIMMUNE DISEASE N Gynecological History Statement/Question Response How many live births 0 Abnormal Pap N Date of Last Pap Current Control Method IUD Age at Menarche 14 Date of LMP Obstetrics History GPAL:G 1 P 0 1 0 1 Type Value Multiple Births 0 Full Term 0 Induced 0 Spontaneous 0 Premature 1 Living 1 Ectopics 0 Total 1 Immunizations Vaccine Type Date Status Note Provider Nam e and Address Organization Details Recorded Time Influenza, split virus, quadrivalent, preservative 8 completed Steff Harrell APRN [address] [facility] [facility], [address], [address], [employer] 02/29/2024 14:47:12 Hib, unspecified formulation 3 completed Steff Harrell APRN [address] [facility], [address] [address], [place], [address], [employer] 02/29/2024 14:47:12 Hib, unspecified formulation 3 ludmila Harrell APRN [address], [place] [address], [place], [address], [employer] 02/29/2024 14:47:12 Hib, unspecified formulation 4 completed Steff Harrell APRN [address] [facility], [place] [address], [place], [address], [employer] 02/29/2024 14:47:12 Hib, unspecified formulation 3 completed Steff Harrell APRN [address], [address], [place], [address], [facility] 02/29/2024 14:47:12 HPV9 9 completed Steff Harrell APRN [address], [address], [place], [address], [facility] 02/29/2024 14:47:12 IPV 3 completed Steff Harrell APRN [address], [address], [place], [address], [facility] 02/29/2024 14:47:12 IPV 7 completed Steff Harrell APRN [address], [address], [place], [address], [facility] 02/29/2024 14:47:12 IPV 3 completed Steff Harrell APRN [address], [address], [place], [address], [facility] 02/29/2024 14:47:12 IPV 4 completed Steff Harrell APRN [address], [address], [place], [address], [facility] 02/29/2024 14:47:12 Influenza, MDCK, quadrivalent, PF 3 completed Steff Harrell APRN [address], [address], [place], [address], [facility] 02/29/2024 14:47:12 Influenza, live, trivalent, intranasal 2 completed Steff Harrell APRN [address], [address], [place], [address], [facility] 02/29/2024 14:47:12 Influenza, live, trivalent, intranasal 3 completed Steff Harrell APRN [address], [address], [place], [address], [facility] 02/29/2024 14:47:12 MMR 8 completed Steff Harrell APRN [address], [address], [place], [address], [facility] 02/29/2024 14:47:12 MMR 4 completed Steff Harrell APRN [address], [address], [place], [address], [facility] 02/29/2024 14:47:12 COVID-19, mRNA, LNP-S, PF, 30 mcg/0.3 mL dose, pema-sucrose 2 completed Steff Harrell APRN [address], [address], [place], [address], [facility] 02/29/2024 14:47:12 COVID-19, mRNA, LNP-S, bivalent, PF, 30 mcg/0.3 mL dose 3 completed Steff Harrell APRN [address], [address], [place], [address], [facility] 02/29/2024 14:47:12 pneumococcal conjugate PCV 7 [address], [address], [place], [address], [facility] 02/29/2024 14:47:12 pneumococcal conjugate PCV 7 3 completed Steff Harrell APRN [address], [address], [place], [address], [facility] 02/29/2024 14:47:12 pneumococcal conjugate PCV 7 3 ludmila Harrell APRN [address], [address], [place], [address], [facility] 02/29/2024 14:47:12 influenza, unspecified formulation 3 ludmila Harrell APRN [address], [address], [place], [address], [employer] [facility] 02/29/2024 14:47:12 influenza, unspecified formulation 6 completed Steff Harrell APRN [address], [address], [place], [address], [employer] [facility] [employer] [facility] 02/29/2024 14:47:12 influenza, unspecified formulation 3 completed Steff Harrell APRN [address], [address], [place], [address], [employer] [facility] 02/29/2024 14:47:12 influenza, unspecified formulation 5 completed Steff Harrell APRN [address], [address], [place], [address], [employer] [facility] 02/29/2024 14:47:12 Tdap [address], [address], [place], [address], [employer] [facility] 02/29/2024 14:47:12 Tdap [address], [address], [place], [address], [employer] [facility] 02/29/2024 14:47:12 varicella [address], [address], [place], [address], [employer] [facility] [employer] [facility] 02/29/2024 14:47:12 varicella [address], [place], [address], [employer] [facility] 02/29/2024 14:47:12 influenza, split (incl. purified surface antigen) 8 ludmila Harrell APRN [address], [address], [place], [address], [employer] [facility] [employer] [facility] 02/29/2024 14:47:12 HPV, quadrivalent 4 completed Steff Harrell APRN [address], [address], [place], [address], [employer] 02/29/2024 14:47:12 Hep B, adolescent or pediatric 3 completed Steff Harrell APRN [address], [address], [place], [address], [employer] 02/29/2024 14:47:12 Hep B, adolescent or pediatric 3 completed Steff Harrell APRN [address], [address], [place], [address], [employer] 02/29/2024 14:47:12 Hep B, adolescent or pediatric 3 completed Steff Harrell APRN [address], [address], [place], [address], [employer] 02/29/2024 14:47:12 Hep B, adolescent or pediatric 3 completed Steff Harrell APRN [address], [address], [place], [address], [employer] 02/29/2024 14:47:12 Hep A, pediatric, unspecified formulation 6 completed Steff Harrell APRN [address], [address], [place], [address], [employer] 02/29/2024 14:47:12 Hep A, pediatric, unspecified formulation 5 completed Steff Harrell APRN [address], [address], [place], [address], [employer] 02/29/2024 14:47:12 meningococcal MCV4P 2 completed Steff Harrell APRN [address], [address], [place], [address], [employer] 02/29/2024 14:47:12 meningococcal MCV4P 4 completed Steff Harrell APRN [address], [address], [place], [address], [facility] [employer] [facility] 02/29/2024 14:47:12 DTaP 3 completed Steff Harrell APRN [address], [address], [place], [address], [facility] [employer] [facility] 02/29/2024 14:47:12 DTaP 7 completed Steff Harrell APRN [address], [address], [place], [address], [facility] [employer] [facility] 02/29/2024 14:47:12 DTaP 3 completed Steff Harrell APRN [address], [address], [place], [address], [facility] [employer] [facility] 02/29/2024 14:47:12 DTaP 4 completed Steff Harrell APRN [address], [address], [place], [address], [employer] [facility] 02/29/2024 14:47:12 DTaP 3 completed Steff Harrell APRN [address], [address], [place], [address], [employer] [facility] 02/29/2024 14:47:12 Influenza, live, quadrivalent, intranasal 4 completed Steff Harrell APRN [address], [address], [place], [address], [employer] [facility] 02/29/2024 14:47:12 Influenza, split virus, quadrivalent, PF 0 completed Steff Harrell APRN [address], [address], [place], [address], [employer] [facility] 02/29/2024 14:47:12 Influenza, split virus, quadrivalent, PF 6 completed Steff Harrell APRN [address], [address], [place], [address], [employer] [facility] 02/29/2024 14:47:12 Influenza, split virus, quadrivalent, preservative 0 completed Steff Harrell APRN [address] [facility], [address], [place], [address], [facility] [employer] 02/29/2024 14:47:11 Influenza, split virus, quadrivalent, preservative 9 completed Not Available [facility] 03/06/2023 22:23:55 Past Encounters Encounter ID Performer Location Encounter Start Date Encounter Closed Date Diagnosis/Indication Diagnosis SNOMED-CT Code Diagnosis ICD10 Code Diagnosis Note [id number] DENAE Mcclelland [facility] [address], [facility] [address] [place] [address] 10/12/2020 00:00:00 10/12/2020 16:51:52 [id number] DENAE Mcclelland [facility] [address], [facility] [address] [place] [address] 10/23/2020 00:00:00 10/23/2020 11:10:42 [id number] Roma quinones MD [facility] [address] [facility] [address] [place] [address] 06/24/2021 00:00:00 06/24/2021 12:00:26 [id number] Garth Brian DPM [facility] [place] [address] [facility] [address] [place] [address] 04/03/2023 13:41:51 04/03/2023 14:17:31 Ingrowing toenail [id number] L60.0 medial border, bilateral great toenailsSl ant back procedure performed without incidentEd ucated on treatment optionsPat ient would like to return for an office procedure for partial matrixecto my both nail corners.Fo llow up for procedure [id number] Garth Brian DPM [facility] [place] [address] [facility] [address] [place] [address] 07/27/2023 14:08:01 08/23/2023 15:12:52 Ingrowing toenail [id number] L60.0 right great toenailpar tial matrix both corners performed today- right great toeconsent signeddres sing instructedin kimball reviewedwo und care instructio rehana reviewedfo llow-up in 1 week left great toenail will be performed at a later date due to patient's request [id number] Roma quinones MD [facility] [address] [facility] [place] [address] 02/29/2024 14:27:57 02/29/2024 15:00:58 Screening for disorder 917964076 Z13.9 Anxiety 85393778 F41.9 [id number] Garth Brian DPM [facility] [place] [address] [place] [address] 02/29/2024 11:19:59 02/29/2024 13:29:06 Onychomycosis of toenails [id number] B35.1 right great toenailapp ly ketoconazo le daily follow-up in 3 months if continues be problemati c we will schedule total nail avulsion Dystrophia unguium [id number] L60.3 Health Concerns Section Related Observation LastModified by Organization Detai ls LastModified Time None Recorded Concern Status LastModified by Organization Details LastModified Time None Recorded Advance Directives Directive N: Payers Encounter Date Sequence Insurance Name Policy Number Policy Bonner Covered Member ID Bonner Member ID Guarantor Name 04/03/2023 1 [place] [id number] Aurelio [id number] Miryam Brennan Pellazladonna 04/03/2023 1 [facility] (MEDICAID HMO) [id number] Miryam Hair [id number] Miryam Amin Pellazladonna 07/27/2023 1 [place] [id number] Aurelio [id number] Miryam Amin Pellazladonna 07/27/2023 1 [facility] (MEDICAID HMO) [id number] Miryam Fletcherazari [id number] Miryam Fletcherazari 02/29/2024 1 [facility] (MEDICAID O) [id number] Miryam Fletcherazari [id number] Miryam Fletcherazari 02/29/2024 1 [facility] (MEDICAID HMO) [id number] Miryam Fletcherazari [id number] [employer] Notes Date Note Type Note Provider Name and Address Organization Details Recorded Time 04/03/2023 text/html . Patient is a 22-year-old female who presents the office with complaints ingrown toenails to both medial corners of both great toes. Patient states that she has not had any redness or drainage but does have some pain to the toenail with pressure. Patient denies any fever, chills, nausea vomiting. Patient states she is usually able to cut the corners out without issue. Patient states that she would like to pursue partial matrixectomy as her mother had this condition as well and had the procedure. Patient denies any other complaints. Garth Brian DPM [address], [place], [address], [employer] 04/03/2023 14:16:59 07/27/2023 text/html Patient is here for toenail procedure.Patient denies any new pedal complaints.Patient denies any signs of infection to the toes.Patient understands all risks and benefits of the planned procedure and elects to continue. Garth Brian DPM [address], [address], [place], [address], [employer] 08/06/2023 10:05:22 02/29/2024 text/html Miryam presents today to establish care. Patient states that she is having issues with her sertraline for anxiety and she states that she feels that her anxiety has worsened since starting it about 10 days ago. She has taken Lexapro in the past and it made her dizzy. Steff Harrell APRN [address], [place], [address], [employer] 03/04/2024 09:37:38 02/29/2024 text/html . Patient is a 23-year-old female she presents the office with complaints of toenail fungus to the right great toenail. Patient states she is nail dystrophy to the area and is concerned about discoloration. Patient states she injured the toenail. She has underwent partial nail matrixectomy the right great toenail is no longer incurvated. Patient denies any pain to the sides. Patient denies any redness or drainage. Garth Brian DPM [address] [facility] [address], [place], [address], [place] [facility] 02/29/2024 12:34:30 OBGyn Episode No OBEpisode recorded.
--- OUTSIDE RECORDS SUMMARY | 2024-12-24 15:15 | XMS_ITS | Data Portability ---
Author Organization [facility] [place] Address [address] [place] [address] [place] [address] Assessment No assessment recorded. Plan of Treatment Reminders Order Date Submit Date Provider Last Modified By Organization Details Last Modified Time Details Appointments U/S OB SNEAK PEAK 2024 10:00A M ULTRASOUND Not available Not available Not available OB SCREEN 2024 10:45A M SMITH HIRSCH MD Not available Not available Not available Lab None recorde d. Referral None recorde d. Procedures None recorde d. Surgeries None recorde d. Imaging US, obstetr ic, transva ginal 2024 025 [facility], [address], [address], [place], [address], 12/21/2024 22:13:52 US, transva ginal 2024 025 [email or web address] [place], Formerly named [facility] [address], [place], [address], 08/22/2024 20:17:34 Medication Orders sertral ine 25 mg tablet 2024 025 [facility] #[id number], [address], [place], [address], 12/20/2024 14:16:16 Patient TargetsNo targets recorded. Patient InstructionsNo instructions recorded. Reason for Referral None Reported. Results Created Date Observation Date Name Description Value Unit Range Abnormal Flag Note LastModifiedBy Organization Detail LastModifiedTime 08/19/19 25 08/19/2024 [facility] SWAB PL[facility], KESHIA bacterial vaginosis (bv), tma Negati ve negati ve Not Available [facility] (Lab) [address] [place], [address], 08/20/2024 17:47:29 08/19/19 25 08/19/2024 [facility]OM[facility] H SWAB PLUS, KESHIA yanira species, tma Negati ve negati ve Not Available [facility] (Lab) [address] [facility], [place], [address], 08/20/2024 17:47:29 08/19/19 25 08/19/2024 WOMEN 'S HEALT H SWAB PLUS, KESHIA yanira glabrata, tma Negati ve negati ve Not Available [facility] (Lab) [address] [place], [address], 08/20/2024 17:47:29 08/19/19 25 08/19/2024 [facility]OM[facility]ALT H SWAB PLUS, KESHIA trichomonas vaginalis, tma Negati ve negati ve Not Available [facility] (Lab) [address] [place], [address], 08/20/2024 17:47:29 08/19/19 25 08/19/2024 [facility], KESHIA chlamydia trachomatis, PCR Negati ve negati ve Not Available [facility] (Lab) [address] [place], [address], 08/20/2024 17:47:29 08/19/19 25 08/19/2024 WOMEN 'S HEALT H SWAB PLUS, KESHIA neisseria gonorrhoeae, PCR Negati ve negati ve Bacte rial vagin osis detec ts the follo wing bacte steve assoc iated with bacte rial vagin osis (BV): Lacto bacil winifred (L. gasse ri, L. crisp atus and L. jense sherry), Gardn erell a vagin fabiano, and Atopo bium vagin ae. A singl e quali tativ e resul t is repor murray base on instr ument softw are to deter mine BV posit juliet or negat juliet statu s. The Izzy da speci es group tests for C. albic ans, C. tropi calis , C. parap phil is, C. dubli niens is. Testi ng is perfo rmed using the Trans cript ion Media murray Ampli ficat ion metho d. Tests for Izzy da glabr marco, Trich omona s vagin fabiano, Chlam ydia trach omati s, and Neiss eria gonor rhoea e are also inclu ded in this panel . Not Available [facility] (Lab) [address] [facility], [place], [address], 08/20/2024 17:47:29 08/22/19 25 08/22/2024 US, trans vagin al No observ ation record ed. [place] [address], [place], [address], 08/22/2024 18:31:51 08/22/19 25 08/22/2024 US, trans vagin al No observ ation record ed. [email or web address] [facility] [address], [place], [address], 08/25/2024 00:22:13 12/21/19 25 12/21/2024 US, obste tric, trans vagin al No observ ation record ed. [facility] [address], [place], [address], 12/21/2024 10:36:12 12/21/19 25 12/20/2024 US, obste tric, trans vagin al No observ ation record ed. [email or web address] [facility] [address], [place], [address], 12/21/2024 22:35:44 Result Notes None recorded. Problems Name Problem SNOMED Code Status Onset Date Resolution Date Notes Provider Name and Address Organization Details Recorded Time History of endometr iosis 35291711831 509417 Active 2021 Not Available [facility] 3 09:53:58 Chlamydi al infectio n [id number] Completed treated, Negative test of cure 02/29/20 22 Kathy soto, [facility] 3 15:34:12 Mixed anxiety and depressi ve disorder [id number] Completed EPDS 25 on 04/22 - Started Zoloft. Please check on mood 05/20!! Kathy soto, [facility] 3 15:34:12 Marginal insertio n of umbilica l cord 11199060 Completed Kathy Cash [facility] [place], [facility] 3 15:34:12 Placenta circumva llata [id number] Completed Kathy Cash [facility] [place] [place], [facility] 3 15:34:12 Problem Notes None recorded. Procedures Surgical History Date Name Laterality Status Provider Name and Address Organization Details Recorded Time 12/21/19 25 Date of Last Pap Smear completed Kathy Cash [facility] 12/20/2024 12:52:43 08/23/19 25 IUD Removal completed SMITH HIRSCH MD [address], [place], [address], [facility] 08/24/2024 23:23:20 09/13/19 24 LAPAROSCOPY, DIAGNOSTIC (SURG) completed Tara Raza [facility] 09/13/2023 17:32:29 04/25/20 23 LAPAROSCOPY, DIAGNOSTIC (SURG) completed Raissa Knox [facility] 04/26/2023 10:04:38 11/11/19 23 IUD Insertion completed Celeste Zhang [facility] 11/15/2022 18:46:00 11/04/19 22 Control Implant Removal completed LAURA Cheng- [address], [place], [address], [place] [facility] 11/03/2021 11:29:38 02/27/20 21 LAPAROSCOPY, DIAGNOSTIC (SURG) completed Raissa Knox [facility] 03/01/2021 10:57:21 08/07/19 21 procedure on tonsils completed Kathy Cash [facility] 06/24/2022 15:35:20 08/07/19 05 removal of silastic tubes from ear completed Kathy Cash [facility] 06/24/2022 15:35:29 Imaging Results Imaging Date Name Status LastModified by Organization Details LastModified Time 08/22/2024 US, transvaginal completed taylor beth [address], [place], [address], 08/22/2024 18:31:51 08/22/2024 US, transvaginal completed [email or web address] [facility] [address], [place], [address], 08/25/2024 00:22:13 12/21/2024 US, obstetric, transvaginal completed taylor Hatch [address], [place], [address], 12/21/2024 10:36:12 12/20/2024 US, obstetric, transvaginal completed [email or web address] [facility] [address], [place], [address], 12/21/2024 22:35:44 Procedure Notes None recorded. Medical Equipment None Reported. Allergies Allergen ID Allergen Name Allergen Category Reaction Reaction Severity Criticality Documentation Date Start Date Code Code System Note Provider Name and Address Organization Details Recorded Time 84018 amoxicill in medicatio n Not available Not available Not available 03/29/2021 723 RxNorm Luiza soto [facility] 16:27:45 Medications Name Sig Start Date Stop Date Status Note LastModified by Organization Details LastModified Time amoxicillin 500 mg capsule TAKE 1 CAPSULE BY MOUTH TWICE A DAY FOR 10 DAYS 12/14 completed Not Available Not Available Not Available Mirena 21 mcg/24 hr (up to 8 years) 52 mg intrauterin e device Take 1 device by intrauter ine route. 12/20 completed Not Available Not Available Not Available doxycycline hyclate 100 mg capsule TAKE 1 CAPSULE BY MOUTH TWICE DAILY FOR 10 DAYS DIRECTED 12/14 completed Not Available Not Available Not Available erythromyci n 500 mg tablet TAKE 1 TABLET BY MOUTH TWICE DAILY FOR 7 DAYS. 09/23 completed Not Available Not Available Not Available cetirizine 10 mg tablet TAKE 1 TABLET BY MOUTH EVERY DAY 08/19 completed Not Available Not Available Not Available azithromyci n 250 mg tablet TK 2 TS PO ON DAY 1, THEN TK 1 T PO D FOR 4 DAYS 08/09 completed Not Available Not Available Not Available fluconazole 150 mg tablet TAKE 1 TABLET BY MOUTH ONCE FOR 1 DOSE 08/19 completed Not Available Not Available Not Available benzonatate 200 mg capsule TAKE 1 CAPSULE BY MOUTH THREE TIMES DAILY NEEDED 08/09 completed Not Available Not Available Not Available valacyclovi r 1 gram tablet TAKE 1 TABLET BY MOUTH TWICE A DAY X10 DAYS 08/19 completed Not Available Not Available Not Available hydrocodone 5 mg-acetamin ophen 325 mg tablet TAKE 1 TABLET BY MOUTH EVERY 6 HOURS 08/09 completed Not Available Not Available Not Available metronidazo le 0.75 % (37.5 mg/5 gram) vaginal gel APPLY 5 GRAMS VAGINAL ROUTE EVERY DAY BEFORE BEDTIME FOR 5 DAYS 08/19 completed Not Available Not Available Not Available ondansetron HCl 4 mg tablet TAKE 1 TABLET BY MOUTH EVERY 8 HOURS 08/19 completed Not Available Not Available Not Available prednisone 20 mg tablet TAKE 1 TABLET ORAL ROUTE ONCE DAILY FOR 5 DAYS 08/19 completed Not Available Not Available Not Available sertraline 100 mg tablet TAKE 1 TABLET BY MOUTH EVERY DAY 08/19 completed Not Available Not Available Not Available metronidazo le 500 mg tablet TAKE 1 TABLET BY MOUTH EVERY 8 HOURS 12/20 completed Not Available Not Available Not Available ciprofloxac in 500 mg tablet TAKE 1 TABLET BY MOUTH EVERY 12 HOURS 12/14 completed Not Available Not Available Not Available Tamiflu 75 mg capsule take one tablet by mouth daily for 5 days 07/18 completed Not Available Not Available Not Available tramadol 50 mg tablet 12/14 completed Not Available Not Available Not Available oxycodone-a cetaminophe n 5 mg-325 mg tablet TAKE 1 TABLET BY MOUTH EVERY 4 HOURS NEEDED FOR PAIN 12/14 completed Not Available Not Available Not Available amoxicillin 875 mg tablet 08/19 completed Not Available Not Available Not Available benzonatate 100 mg capsule TAKE 1 CAPSULE ORAL ROUTE EVERY 8 HOURS NEEDED 08/19 completed Not Available Not Available Not Available cephalexin 500 mg capsule TAKE 1 CAPSULE BY MOUTH EVERY 8 HOURS FOR 10 DAYS 09/23 completed Not Available Not Available Not Available nitrofurant oin macrocrysta l 100 mg capsule TAKE 1 CAPSULE BY MOUTH EVERY 12 HOURS FOR 7 DAYS 01/26 completed Not Available Not Available Not Available polymyxin B sulfate 10,000 unit-trimet hoprim 1 mg/mL eye drops INSTILL 1 DROP INTO THE AFFECTED EYE(S) EVERY 3 HOURS FOR 10 DAYS 12/14 completed Not Available Not Available Not Available sertraline 25 mg tablet Take 1 tablet every day by oral route. 2024 active Not Available Not Available Not Avai lable azelastine 137 mcg (0.1 %) nasal spray ADMINISTE R 1 SPRAY INTO EACH NOSTRIL EVERY 12 HOURS 12/14 completed Not Available Not Available Not Available methylpredn isolone 4 mg tablets in a dose pack TAKE BY MOUTH DIRECTED 08/09 completed Not Available Not Available Not Available albuterol sulfate HFA 90 mcg/actuati on aerosol inhaler INHALE 2 PUFFS BY MOUTH EVERY 4 HOURS NEEDED 08/19 completed Not Available Not Available Not Available ketoconazol e 2 % topical cream APPLY TO THE AFFECTED TOENAIL AREA(S) BY TOPICAL ROUTE ONCE DAILY 08/19 completed Not Available Not Available Not Available fluticasone propionate 50 mcg/actuati on nasal spray,suspe nsion ADMINISTE R 1 SPRAY INTO EACH NOSTRIL EVERY 12 HOURS 12/14 completed Not Available Not Available Not Available sertraline 50 mg tablet TAKE 1/2 TABLET BY MOUTH DAILY FOR 1 WEEK THEN TAKE 1 TABLET BY MOUTH DAILY 07/18 completed Not Available Not Available Not Available naproxen 500 mg tablet TAKE 1 TABLET BY MOUTH EVERY 12 HOURS WITH FOOD 08/19 completed Not Available Not Available Not Available amoxicillin 875 mg-potassiu m clavulanate 125 mg tablet TAKE 1 TABLET BY MOUTH TWICE A DAY FOR 7 DAYS 08/19 completed Not Available Not Available Not Available escitalopra m 10 mg tablet TAKE 1 TABLET BY MOUTH EVERY DAY 08/09 completed Not Available Not Available Not Available cyclobenzap rine 5 mg tablet TAKE 1 TABLET BY MOUTH UP TO 3 TIMES DAILY NEEDED 08/19 completed Not Available Not Available Not Available 08/26 (21) 1 mg-20 mcg tablet TAKE 1 TABLET BY MOUTH EVERY DAY 12/14 completed Not Available Not Available Not Available bupropion HCl XL 150 mg 24 hr tablet, extended release TAKE 1 TABLET BY MOUTH EVERY DAY 08/19 completed Not Available Not Available Not Available nitrofurant oin monohydrate /macrocryst als 100 mg capsule TAKE 1 CAPSULE BY MOUTH TWICE DAILY FOR 5 DAYS 01/26 completed Not Available Not Available Not Available Nexplanon 68 mg subdermal implant Inject by subcutane ous route. 01/26 completed Not Available Not Available Not Available 28 mg iron-800 mcg tablet TAKE 1 TABLET BY MOUTH DIRECTED 09/23 completed Not Available Not Available Not Available Classic 28 mg iron-800 mcg tablet TAKE 1 TABLET BY MOUTH DIRECTED 12/14 completed Not Available Not Available Not Available ID NOW COVID-19 Test Kit TEST DIRECTED TODAY 09/23 completed Not Available Not Available Not Available BinaxNOW COVID-19 Ag Self Test kit USE DIRECTED 09/23 completed Not Available Not Available Not Available Vitals Date Recorded Body height Body mass index (BMI) Body weight Systolic blood pressure Diastolic blood pressure Provider Name and Address Organization Details Last Updated DateTime 08/19/2024 172.72 cm 22.5 kg/m2 50203.67 g 113 mm[Hg] 74 mm[Hg] Ilene Bhagat [facility] 5 12:23:58 Date Recorded Body height Body mass index (BMI) Body weight Systolic blood pressure Diastolic blood pressure Provider Name and Address Organization Details Last Updated DateTime 08/23/2024 172.72 cm 21.3 kg/m2 07037.93 g 105 mm[Hg] 75 mm[Hg] Ilene Olayinka [facility] 5 12:49:25 Date Recorded Body height Body mass index (BMI) Body weight Systolic blood pressure Diastolic blood pressure Provider Name and Address Organization Details Last Updated DateTime 12/20/2024 172.72 cm 21.1 kg/m2 06944.34 g 106 mm[Hg] 75 mm[Hg] Kathy Shreya [facility] 5 12:52:11 Social History Question Answer Notes LastModified by Organizat ion Details LastModified Time Tobacco Smoking Status Never Smoker Chepe soto, [facility] 06/24/2022 14:33:52 If You Are , What Was Your Level Of Alcohol Consumption Prior To ? Occasional [email or web address] Information not available 06/24/2022 Are You Blind Or Do You Have Difficulty Seeing? No [email or web address] Information n ot available 04/20/2022 What Is Your Level Of Caffeine Consumption? Occasional [email or web address] Information not available 04/20/2022 In The 14 Days Before Symptom Onset, Have You Had Close Contact With A Laboratory-confirm ed COVID-19 While That Case Was Ill? No [email or web address] Information n ot available 04/20/2022 In The 14 Days Before Symptom Onset, Have You Had Close Contact With A Person Who Is Under Investigation For COVID-19 While That Person Was Ill? No [email or web address] Information not available 04/20/2022 Have You Been To An Area Known To Be High Risk For COVID-19? No [email or web address] Information not available 04/20/2022 Are You Deaf Or Do You Have Serious Difficulty Hearing? No [email or web address] Information not available 04/20/2022 What Type Of Diet Are You Following? REGULAR [email or web address] Information n ot available 04/20/2022 Do You Use Your Seat Belt Or Car Seat Routinely? Yes [email or web address] Information not available 04/20/2022 Do You Have Smoke And Carbon Monoxide Detectors In Your Home? Yes [email or web address] Information not available 04/20/2022 Do You Use Sunscreen Routinely? Yes [email or web address] Information not available 04/20/2022 Has Tobacco Cessation Counseling Been Provided? No [email or web address] Information not available 06/24/2022 Do You Have Difficulty Walking Or Climbing Stairs? No [email or web address] Information not available 06/24/2022 Sex: Unknown Functional Status Question Answer Note LastModified by Organizat ion Details LastModified Time Do you use any illicit or recreational drugs? No [email or web address] Information not available 04/20/2022 Do you or have you ever used any other forms of tobacco or nicotine? No [email or web address] Information not available 06/24/2022 What is your level of alcohol consumption? None [email or web address] Information not available 04/20/2022 Are you able to walk? YESWOREST [email or web address] Information not available 04/20/2022 Are you able to care for yourself? Yes [email or web address] Information n ot available 06/24/2022 Do you have difficulty dressing or bathing? No Information not available 06/24/2022 What is your exercise level? Occasional [email or web address] Information not available 04/20/2022 Mental Status Question Answer Note LastModified by Organization D etails LastModified Time Do you feel stressed (tense, restless, nervous, or anxious, or unable to sleep at night)? [id number] [email or web address] Information not available 04/20/2022 Family History Relationship Description Onset Age of this Age Resolved Age Notes LastModified by Organization Details LastModified Time Mother Diabetes mellitus [email or web address] Not available 06/24 15:34:51 Mother Hypercholest erolemia [email or web address] Not available 06/24 15:34:51 Mother Cyst of ovary [email or web address] Not available 06/24 15:34:51 Maternal Grandmother Hypertensive disorder Not available 06/24 15:34:51 Maternal Grandmother Cyst of ovary [email or web address] Not available 06/24 15:34:51 Medical History Condition Response Allergies (Food, seasonal, environmental ) Y Other N Breast Cancer N Drug/Latex Allergies/Reactions N Blood Transfusion N Dermatologic Disorders N Lung Disease N Defects or Inherited Disease N Breast Problem N Gestational Diabetes N Hematologic disorders N Anesthesia Complications N History of STI N Deep Vein Thrombosis N Polycystic ovary syndrome N Anxiety Disorder Y Autoimmune disease N Arthritis N Infertility N Polyps N Acid Reflux (GERD) N History of abnormal pap N Cancer N Stroke N Varicosities N Neurologic/Epilepsy N Endometriosis Y High Cholesterol N Headaches N Fibromyalgia N Kidney Disease N Heart Problems N Kidney or Bladder Problems N Thyroid Problems N GI Problems N Eating Disorder N Anemia N Art (IVF or FET) N Psychiatric Illness N Ovarian Cancer N Diabetes N Pulmonary (TB, Asthma) N Hepatitis/Liver Disease N No Past Medical History N Eczema N Urinary Tract Infection N Abuse/Domestic Violence N Asthma N Trauma/Violence N Depression/ depression Y Heart Disease N Pre-Eclampsia N Hypertension N Osteoporosis N Thrombophilias N Gynecological History Statement/Question Response Abnormal Pap N Date of Last Mammogram Date of LMP 11/05/2024 STIs/STDs Y HPV Vaccine Y Current Control Method Age at First Child 21 Are cycles usually normal N Sexually Active? Y Menses Monthly N Date of DEXA bone scan Age of first menstrual cycle 15 Date of Last Pap Smear 12/20/2024 Sexual Problems? Y Desired Control Method LMP Unknown Obstetrics History GPAL:G 1 P 0 1 0 1 Type Value Premature 1 Living 1 Total 1 Immunizations Vaccine Type Date Status Note Provider Nam e and Address Organization Details Recorded Time Influenza, MDCK, quadrivalent, PF 07/04/2023 completed Kathy Cash [facility] 12/15/2023 12:39:50 Past Encounters Encounter ID Performer Location Encounter Start Date Encounter Closed Date Diagnosis/Indication Diagnosis SNOMED-CT Code Diagnosis ICD10 Code Diagnosis Note [id number] [facility] [address] [address] 10/06/2020 11:58:22 10/07/2020 14:16:08 Abnormal vaginal bleeding 873718377 N93.9 Abnormal bleeding since re-inserti on of nexplanon in August 2019. Bleeding varies but seems to have bleeding most days. She is not currently bleeding. It stopped a couple days ago. Will check labs. Discussed that it is not uncommon to have abnormal bleeding with nexplanon. If labs and u/s normal could consider ocp which would also be helpful if ovarian cyst. Fibrocysti c disease of breast 45561879 N60.19 Fibrocysti c breasts. Pt feels this is always how her breasts feel. She does dring a significan t amount of caffeine. No distinct lumps or tender areas. Cut out caffeine and RTC in 6 weeks to see if improved. Pain in pelvis 97067725 R10.2 Slight tenderness on right side with exam. U/S and return for follow up. Did discuss ovarian cysts and basic treatment. Abnormal u terine bleeding 4770912696 9100 N93.9 [id number] Santo Parr MD [place] [address],[place] [address] 10/14/2020 12:28:08 10/14/2020 13:26:56 Abnormal vaginal bleeding 748711726 N93.9 R10.2 [id number] Santo Parr MD [place] [address],[place] [address] 02/10/2021 09:31:00 02/10/2021 10:13:36 Pain in pelvis 66002398 R10.2 N93.9 R14.0 [id number] Santo Parr MD [place] [address],[place] [address] 02/22/2021 15:23:05 02/22/2021 17:02:35 Pain in pelvis 00151242 R10.2 N93.9 R14.0 This patient is an 20-year-ol d female with severe pain. She has an ovarian cyst. Her pain is longstandi ng and unremittin g. We have agreed to perform laparoscop ic left ovarian cystectomy . She understand s the risks, benefits, and alternativ es. She has completed the informed consent process is ready to proceed. We spent more than 40 minutes face-to-fa ce. We agreed to perform surgery discussed 2 complex topics. [id number] Santo Parr MD [place] [address],[place] [address] 03/01/2021 09:25:28 03/01/2021 09:28:30 [id number] Santo Parr MD [place] [address] [address] 03/05/2021 12:26:14 03/06/2021 13:55:59 Endometriosis of pelvis 99236897 N80.3 This patient is an 20-year-ol d female presents for follow-up on endometrio sis. Patient had a diagnostic laparoscop y. Endometrio sis was diagnosed and treated radical resection of peritoneum . Spent 40 minutes face-to-fa ce. We talked about adjunct treatment. We talked about Lupron, other GNRH agonists/a ntagonist. We discussed her Nexplanon implant. We discussed treating her bleeding. There was blood within the pelvis at the time of the surgery. She has abnormal bleeding on the Nexplanon. We agreed to use estrogen to treat the abnormal bleeding. Controllin g her bleeding may control the bleeding and the pelvis. It may be the endometrio sis as well but less likely. The endometrio sis may be quiescent. Talked about control pills, patches, rings. Talked about Lupron and detail. I showed her pictures of the surgery. Talked about those results. Talked about the biopsy results. She is going to discuss with the mother and consider further treatment. She will follow-up in 3 months. [id number] Santo Parr MD [place] [address],[place] [address] 03/30/2021 09:33:35 03/30/2021 10:54:52 Cyst of right ovary [id number] 4861951 N83.291 R10.2 [id number] Santo Parr MD [place] [address],[place] [address] 03/31/2021 12:16:56 03/31/2021 16:04:29 Pain in pelvis 09433813 R10.2 N93.9 R14.0 this patient is an 20-year-ol d female who presents for follow-up on ovarian cyst and pelvic pain. She had a pelvic ultrasound that showed 3.5 cm ovarian cyst. She states that is very painful. She has sharp pelvic pain. Her mother was present. We talked for over 30 minutes. Talked about prevention of cyst. She is on Nexplanon. Talked about treatment of this cyst. We talked about observatio n versus surgery. She just had surgery last month for an ovarian cyst. I recommende d some observatio n. She is in significan t pain. Talked about changing her contracept ion. Talked about work and what is acceptable and what she can tolerate it work. Talked about ovarian torsion. She is going to observe the problem and return in 1 week and consider her treatment options. [id number] Santo Parr MD [place] [address] [address] 04/08/2021 12:39:02 04/08/2021 13:17:37 Pain in pelvis 96581923 R10.2 N93.9 R14.0 this patient is an 20-year-ol d female who presents for follow-up on ovarian cyst and pelvic pain. She had a pelvic ultrasound that showed a stable 3.5 cm ovarian cyst. again we Talked about prevention of cyst. She is on Nexplanon. Talked about treatment of this cyst. We talked about observatio n versus surgery. She just had surgery last month for an ovarian cyst. I recommende d some observatio n. her pain is diminished from previously Talked about changing her contracept ion. Talked about work and what is acceptable and what she can tolerate it work. Talked about ovarian torsion. we agreed to continue observatio n. we talked about Agai inhibiting ovulation. this time we discussed elagolix as a possibilit y. She is going to trial this medication for 1 month and return in 1 month. Cyst of ovary 75245739 N 83.209 [id number] Celeste Zhang CNM [facility] [address] [address] 08/09/2021 15:21:29 08/10/2021 17:09:21 Abnormal vaginal bleeding 815925753 N93.9 No bleeding on exam. Will check cbc and tsh today. Vaginits and std cultures collected. Will go ahead and start flagyl for vaginal odor. Discussed use of ocp to control bleeding. Discussed risks and benefits. Pt agreeable and would like a 2 month trial of ocp. If bleeding does not stop with starting the pills she will call for sooner follow up. [id number] LAURA Cheng-[facility] [address],[place] [address] 11/03/2021 10:30:24 11/03/2021 12:47:35 Removal of subcutaneous contraceptive [id number] Z30.46 Removal site was cleansed with betadine and 3cc of lidocaine used for anesthesia . Device was removed in normal fashion without difficulty . Steri stips and pressure bandage placed. Not interested in alternativ e BC method at this time.Will use condoms for BC if becomes SA again.UPT neg Vaginitis 63035923 N76.0 Rx for BV sent.Will send STD screen urine as a precaution . [id number] Mariaa Anton MD [facility] [address],[place] [address] 01/26/2022 13:57:39 01/28/2022 11:07:19 test positive 111550059 Z32.01 Chlamydial infection 105 643298 A74.9 Vaccination not done 482 5398822 9108 Z28.9 Nausea and vomiting 1693 2000 R11.2 [id number] Mariaa Anton MD [facility] [address],[place] [address] 01/26/2022 13:58:19 01/26/2022 14:39:29 [id number] Santo Parr MD [facility] [address],[place] [address] 02/24/2022 16:19:46 02/24/2022 17:27:32 screening 844345835 Z36.82 [id number] Santo Parr MD [facility] [address],[place] [address] 02/24/2022 16:21:11 02/24/2022 20:16:07 [id number] Santo Parr MD [facility] [address],[place] [address] 02/28/2022 16:06:01 02/28/2022 17:04:34 Routine care 529977879 Z34.01 [id number] Darlene French [facility] [address],[place] [address] 03/25/2022 16:16:40 03/25/2022 16:44:29 Routine care 183194677 Z34.92 [id number] Santo Parr MD [facility] [address],[place] [address] 04/08/2022 09:35:26 04/08/2022 10:07:44 Spotting per vagina in 971973464 O26.859 Z3A.18 [id number] Santo Parr MD [facility] [address],[place] [address] 04/20/2022 11:31:12 04/20/2022 14:06:39 screening 133966027 Z36.3 [id number] Darlene French [facility] [address],[place] [address] 04/20/2022 11:39:05 04/20/2022 13:47:11 Routine care 505573782 Z34.92 [id number] Santo Parr MD [facility] [address],[place] [address] 05/20/2022 13:58:20 05/20/2022 14:42:27 Marginal insertion of umbilical cord 08422644 O43.129 O43.112 Z36.2 Z3A.24 [id number] Darlene French [facility] [address],[place] [address] 05/20/2022 13:59:15 05/20/2022 15:05:03 Routine care 527793920 Z34.92 [id number] Mariaa Anton MD [facility] [address],[place] [address] 06/20/2022 13:58:12 06/20/2022 15:48:41 Premature uterine contraction 395188226 O60.03 [id number] Mariaa Anton MD [facility] [address],[place] [address] 1 06/20/2022 13:59:19 06/20/2022 16:10:15 Short cervical length in 372147130 O26.879 [id number] Mariaa Anton MD [facility] [address],[place] [address] 06/20/2022 14:59:18 06/20/2022 16:19:33 condition affecting obstetrical care of mother 339049149 O36.8330 [id number] Santo Parr MD [facility] [address],[place] [address] 06/24/2022 14:33:12 06/27/2022 14:36:00 Marginal insertion of umbilical cord 25982489 O43.129 O43.112 Z3A.29 [id number] [facility] [address],[place] [address] 06/24/2022 14:34:08 06/24/2022 16:20:03 Routine care 500260397 Z34.92 [id number] Celeste Zhang [facility] [address],[place] [address] 07/18/2022 11:46:17 07/18/2022 13:02:16 Routine care 922613012 Z34.93 [id number] Santo Parr MD [facility] [address],[place] [address] 07/22/2022 15:31:26 07/22/2022 16:23:29 Placenta circumvallata 1721104 O43.119 O43.123 Z3A.33 [id number] Mariaa Anton MD [facility] [address],[place] [address] 07/26/2022 16:02:25 07/26/2022 17:17:16 Routine care 861228218 Z34.91 [id number] Darlene French [facility] [address],[place] [address] 08/12/2022 11:41:59 08/12/2022 13:41:20 Routine care 356031584 Z34.92 [id number] Darlene French [facility] [address],[place] [address] 09/23/2022 15:52:29 09/23/2022 16:28:54 care 920544991 Z39.2 Anxiety 09248933 F41.9 restart zoloft at 50 mg daily, f/u at IUD placement [id number] Celeste Zhang [facility] [address] [place] [address] 11/10/2022 15:30:07 11/15/2022 16:58:05 Insertion of intrauterine contraceptive device 11597588 Z30.430 Venereal d isease screening 324672215 Z11.3 [id number] Darlene French [facility] [address],[place] [address] 12/16/2022 15:04:44 12/16/2022 15:20:56 IUD check 399027522 Z30.431 [id number] Santo Parr MD [facility] [address],[place] [address] 12/29/2022 14:57:19 01/03/2023 14:44:05 Irregular periods 58469296 N92.6 R10.2 [id number] Santo Parr MD [facility] [address],[place] [address] 01/04/2023 17:48:35 01/04/2023 22:00:57 Cyst of ovary 85730100 N83.209 Pain in pelvis 16671409 R10.2 N93.9 R14.0 Abnormal u terine bleeding 0261722888 9100 N93.9 22-year-ol d female presents for ultrasound follow-up. She was abnormal bleeding after IUD insertion. She has been bleeding for more than a month 2 months after IUD insertion. She has some cramping that is persistent into the 2nd month and continues. She had some ultrasound findings that were of note. She has a possible hydrosalpi nx/ovarian cyst on the right. We shared images of the ultrasound findings. We discussed those findings. We discussed possible risk. We discussed possible treatment or follow-up. We agreed to follow-up on the cyst/ hydrosalpi nx in 8 weeks. She is going to start control pill pack for 3 weeks. She will start with 2 pills a day for 4 days. He spent over 20 minutes face-to-fa ce. More than 50% is counseling [id number] Santo Parr MD [facility] [address],[place] [address] 03/06/2023 17:11:28 03/06/2023 17:52:44 Cyst of right ovary 9214218388 [id number] N83.291 R10.2 [id number] Santo Parr MD [facility] [address],[place] [address] 03/10/2023 15:14:55 03/10/2023 16:28:12 Bacterial vaginosis 863353837 N76.0 Hemorrhagi c cyst of ovary 963549564 N83.209 Hydrosalpinx 75883226 N7 0.11 Pain in pelvis 02704219 R10.2 N93.9 R14.0 this patient is 22-year-ol d female who has had pelvic pain for about 3 months. She was seen emergency chart for severe pain. She had a CT that showed some lesions within the pelvis. Pelvic ultrasound the office showed hemorrhagi c cyst and a possible hydrosalpi nx. We talked about treatment options. She has a history of endometrio sis. Talked about observatio n, talked about surgical treatment. We spent 40 minutes face-to-fa ce. More than 50% was counseling . We made a decision to perform surgery. We will perform diagnostic laparoscop y. [id number] Santo Parr MD [facility] [address],[place] [address] 04/26/2023 09:40:34 04/26/2023 09:45:54 [id number] Santo Parr MD [facility] [address],[place] [address] 05/02/2023 10:23:44 05/02/2023 11:48:43 Vaginitis 99223213 N76.0 Postoperative care 73999 9007 Z48.89 patient is a 22-year-ol d female presents for postop follow-up. She had a diagnostic laparoscop y with resection of endometrio sis. She had a left ovarian cyst. The left ovarian cyst was a serous cystadenom a. It is unclear if the entire cyst was resected. There may be recurrence on this left side. Resected peritoneal tissue showed no endometrio sis. There was some scarring from previous surgery, adhesion barriers were placed at the end of this surgery. Fallopian tubes were fine. Left ovarian cyst was thought to be hydrosalpi nx On ultrasound . Incisions are clean dry and intact. She is recovering normally. [id number] [facility] [place] [facility] [address] [address] 05/18/2023 13:53:50 05/18/2023 14:43:38 Pain in pelvis 28338052 R10.2 UPT negSTD sentIUD check/pelv ic cramping; will update US Patient is to contact office or go to nearest ED/Urgent care if fever >/= 100.1, pain, excessive bleeding, unusual drainage or swelling in area of concern; or experienci ng worsening sx's or new onset of concerning sx's. Understand ing verbalized . All questions answered to patient satisfacti on. Time spent in visit is a total of 15 mins with at least 50% of visit consisting of counseling and review of plan of care. [id number] Santo Parr MD [facility] [address] [address] 05/19/2023 13:02:30 05/19/2023 13:55:27 Pain in pelvis 96382672 R10.2 N83.291 this patient is 22-year-ol d female who has had pelvic pain for about 3 months. She was seen emergency chart for severe pain. She had a CT that showed some lesions within the pelvis. Pelvic ultrasound the office showed hemorrhagi c cyst and a possible hydrosalpi nx. We talked about treatment options. She has a history of endometrio sis. Talked about observatio n, talked about surgical treatment. We spent 40 minutes face-to-fa ce. More than 50% was counseling . We made a decision to perform surgery. We will perform diagnostic laparoscop y. [id number] Santo Parr MD [facility] [address] [address] 05/25/2023 15:32:56 05/25/2023 18:41:54 Initial prescription of oral contraception 121455149 Z30.011 Sexually t ransmitted infectious disease 8857092 A64 Pain in pelvis 75048152 R10.2 N83.291 Cyst of ovary 29859670 N 83.209 4.5 cm ovarian cyst, recent surgery for endometrio sis and pelvic pain. More pelvic pain now on the right side with the right ovarian cyst. 22-year-ol d female who presents for follow-up on ultrasound . She has a 4.5 cm ovarian cyst on the right. She is pain on the right. This ultrasound performed for pelvic pain. She just had surgery for pelvic pain. She does have a laparoscop ic surgery. Now she has another cyst. Patient has failed trials of oral consult contracept juliet pills in the past due to her mood. She is also on Nexplanon that the time. That may have been too much progestero ne. I told her that we agreed to retry the control pills. We spent 20 minutes face-to-fa ce. More than 50% was counseling . [id number] Santo Parr MD [facility] [address] [address] 07/03/2023 16:02:02 07/03/2023 17:22:01 Cyst of right ovary 4294945990 [id number] N83.291 N83.292 R10.2 [id number] Santo Parr MD [facility] [address] [address] 07/14/2023 13:41:13 07/14/2023 16:00:50 Cyst of ovary 15467471 N83.209 Pelvic mass 96057267 R19 .00 THIS PATIENT IS A 22-YEAR-OL D FEMALE WHO PRESENTS FOR ULTRASOUND FOLLOW-UP. SHE IS PELVIC PAIN AND A OVARIAN CYST. SHE IS A MODERATE-S IZED OVARIAN CYST IS PAINFUL AND PERSISTENT . SHE ALSO HAS A NONSPECIFI C MASS IN THE PELVIS NEAR THE OVARY. TALKED ABOUT TREATMENT OPTIONS. WE TALKED ABOUT HER PAIN. the pain has been present for several months along with the cyst. We also have concern about this persistent mass in the pelvis that is of concern. We agreed to proceed with laparoscop ic ovarian cystectomy . We will look at this mass as well. She understand s the procedure. She recently had this same surgery. we spent over 40 minutes face-to-fa ce. More than 50% was counseling . We made a decision to perform surgery. [id number] Santo Parr MD [facility] [address] [address] 09/19/2023 12:43:19 09/20/2023 08:41:04 Postoperative care 902761787 Z48.89 22-year-ol d female who presents for follow-up on pelvic pain. She is 1 week postop from a diagnostic laparoscop y. She had significan t scar tissue between the left ovary and pelvic sidewall. She had hemo peritoneum collecting in the pelvis. She is Mirena IUD. We talked about her chronic pain. Talked about potential solutions. She is considerin g hysterecto my with ovarian preservati on. Considerin g removal of the left ovary. Left ovary is been cystic and the area of her pain. She will return in 1 month to discuss treatment options. [id number] [facility] [place] [facility] [address] [address] 10/11/2023 17:47:26 10/18/2023 16:47:00 Vaginitis 41146636 N76.0 Today suspect BV on examReques ts STD screen sentCounse led on medication R/B's, Most common side effects, & use. All questions were answered to patient satisfacti on. Rx for BV sent.Will send STD screen urine as a precaution . Time spent in visit is a total of 21 mins with at least 50% of visit consisting of counseling and review of plan of care. [id number] Darlene French CNM [facility] [address],[place] [address] 12/15/2023 11:56:52 12/15/2023 13:56:52 Pain in pelvis 71095090 R10.2 Endometrio sis of pelvis 73620953 N80.9 refer to specialist per request, consider pelvic floor PT when uterine/pe lvic pain managed [id number] Santo Parr MD [facility] [address],[place] [address] 12/28/2023 12:38:26 12/28/2023 13:35:08 Pain in pelvis 39704888 R10.2 N83.291 [id number] SMITH HIRSCH MD [facility] [address],[place] [address] 08/19/2024 12:16:26 08/19/2024 14:24:23 Dyspareunia 82918194 N94.10 - new onset severe dyspareuni a last week, however long hx of pelvic pain 2/2 endometrio sis- Mirena IUD placed 11/2022, postcoital bleeding since that time- given new severe pelvic pain, will order pelvic US for IUD location prior to attempting removal- declines further contracept ion after IUD removal- will also send vaginitis panel for STD testing to r/o infectious cause of pain/bleed ing- rtc for US follow up and IUD removal [id number] Santo Parr MD [facility] [address],[place] [address] 08/22/2024 14:05:22 08/22/2024 14:37:17 Postcoital bleeding 36760867 N93.0 R10.2 [id number] SMITH HIRSCH MD [facility] [address],[place] [address] 08/23/2024 12:43:37 08/26/2024 10:32:38 Removal of intrauterine contraceptive device 8613022237 Z30.432 1. IUD removed on 08/23 without difficulty 2. Declined further contracept ion at this time [id number] Santo Parr MD [facility] [address],[place] [address] 12/20/2024 12:05:21 12/20/2024 12:35:45 Finding of menstrual bleeding 419199702 Z36.87 [id number] [facility]arl[facility] French, [facility] [address] [address] 12/20/2024 12:09:07 12/20/2024 15:10:19 Amenorrhea 52357392 N91.2 reviewed USrpt us in 3 weekspap not collected, discussed test to screen for cervical cancer, will plan pnv dailystart sertraline 25 mg reviewed se risks and benefits Mixed anxi ety and depressive disorder 612365363 F41.8 Health Concerns Section Related Observation LastModified by Organization Detai ls LastModified Time None Recorded Concern Status LastModified by Organization Details LastModified Time None Recorded Advance Directives Directive None Recorded Payers Encounter Date Sequence Insurance Name Policy Number Policy Bonner Covered Member ID Bonner Member ID Guarantor Name 08/19/2024 1 [employer] [place] [id number] Miryam R Pellazari [id number] Miryam R Pellazari 08/22/2024 1 [employer] [place] [id number] Miryam R Pellazari [id number] Miryam R Pellazari 08/23/2024 1 [employer] [place] [id number] Miryam R Pellazari [id number] Miryam R Pellazari 12/20/2024 1 [employer] [place] [id number] Miryam R Pellazari [id number] Miryam R Pellazari 12/20/2024 1 [employer] [place] [id number] Miryam R Pellazari [id number] Miryam R Pellazari Notes Date Note Type Note Provider Name and Address Organization Details Recorded Time 08/19/2024 text/html Patient presents to discuss pelvic pain and dyspareunia. She reports year long episodes of pelvic pain (known hx of endometriosis) however, she reports new severe dyspareunia starting last week. Pain was in both lower quadrants, and still feels swollen. She reports postcoital bleeding since IUD placement, no menstrual cycles with IUD. Mirena IUD placed 11/2022. She would like to have her IUD removed. She would also like STD testing. SMITH HIRSCH MD [address], [place], [address], [facility] 08/19/2024 14:12:21 08/23/2024 text/html Patient presents for US follow up and IUD removal. US demonstrates resolving ovarian cyst and free fluid. Normal placement of IUD. r/b of IUD removal discussed with patient who desires to proceed. Declines other contraception. SMITH HIRSCH MD [address], [place], [address], [facility] 08/24/2024 23:23:57 12/20/2024 text/html Annual GYNReport ed bypatient.History: no gynecologic complaints; actively trying to conceive Menstrual cycle:Normal menses Urinary symptoms:No hematuria; No incontinence Vulva:No genital lesion Vagina:Normal vaginal discharge Breast:No breast pain; No breast lump; No nipple discharge Sexual complaints:No sexual complaints; No pain during intercourse; Normal libido Menopausal Symptoms:No menopausal symptoms; Normal vaginal lubrication Psychological symptoms:No depression; No anxiety; No PMDD Preventive measures:Encourage self breast examination; Encourage regular exercise; Encourage no tobacco useNotes:+UPT Darlene French CNM [address], [place], [address], [facility] 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 MFM does not see for these findings in 3rd trimester. labor precautions. Problem Name Start Date End Date Resolution Snomed Code Not e Marginal insertion of umbilical cord 25002485 Placenta circumvallata 2896049 Mixed anxiety and depressive disorder 989399275 EPDS 25 on 04/22 - Started Zoloft. Please check on mood 05/20!! Chlamydial infection 581190136 treated, Negative test of cure 02/28/2022 Jose Calculation Initial Jose Date Initial Exam Date Initial Exam Provider Initial Ultrasound Date Last Menstrual Period Date Ultra Sound Weeks Gestation 09/09/2022 02/28/2022 01/26/2022 7 Eighteen To Twenty Week Jose Update Ultra Sound Date Fundal Height At Umbil Quickening Date Ultra Sound Latest Weeks Gestation Final Jose Confirmed By Final Jose Confirmed Date Final Jose Date Ultra Sound Latest Days Gestation 0 [email or web address] 02/28/2022 09/09/19 23 0 Pre-milton Flowsheet Flowsheet Date 02/28/2022 Phelps Score Blood Edema Fundus Height Fundus Units Glucose Ketones Leukocytes Nitrite Labor Signs Protein Cervic Dilation Cervic Effacement Cervic Station 12 Type Weight in lbs Pre/Post Dialysis Refused Weight 119.176848248757 BP Diastolic BP Location Tested BP Systolic BP Type 70 R arm 109 sitting Fetus Heart Rate Present A 145 Fetus Movement Comments this patient is a 21-year-ol d 1 at 12 weeks gestation who presents for initial care. She has been exposed to COVID and has her 1st vaccination from COVID. She was given other vaccine recommendations. She has no medical problems. She has no obstetric history. Talked about care in considerable detail. She has completed genetic testing is normal. She plans to have alpha fetoprotein. To begin routine care. Flowsheet Date 03/25/2022 Phelps Score Blood Edema Fundus Height Fundus Units Glucose Ketones Leukocytes Nitrite Labor Signs Protein Cervic Dilation Cervic Effacement Cervic Station neg none none trace Type Weight in lbs Pre/Post Dialysis Refused Weight 120.578669444906 BP Diastolic BP Location Tested BP Systolic BP Type 68 102 Fetus Heart Rate Present A 146 Fetus Movement A Yes Comments patient is having some disch arge. discussed precautions, [facility], f/u 4 weeks anatomy scan Flowsheet Date 04/08/2022 Phelps Score Blood Edema Fundus Height Fundus Units Glucose Ketones Leukocytes Nitrite Labor Signs Protein Cervic Dilation Cervic Effacement Cervic Station Type Weight in lbs Pre/Post Dialysis Refused BP Diastolic BP Location Tested BP Systolic BP Type Fetus Heart Rate Present Fetus Movement Comments Flowsheet Date 04/20/2022 Phelps Score Blood Edema Fundus Height Fundus Units Glucose Ketones Leukocytes Nitrite Labor Signs Protein Cervic Dilation Cervic Effacement Cervic Station Type Weight in lbs Pre/Post Dialysis Refused BP Diastolic BP Location Tested BP Systolic BP Type Fetus Heart Rate Present Fetus Movement Comments Flowsheet Date 04/20/2022 Phelps Score Blood Edema Fundus Height Fundus Units Glucose Ketones Leukocytes Nitrite Labor Signs Protein Cervic Dilation Cervic Effacement Cervic Station neg trace none trace Type Weight in lbs Pre/Post Dialysis Refused Weight 123.843656247834 BP Diastolic BP Location Tested BP Systolic BP Type 73 112 Fetus Heart Rate Present Fetus Movement A Yes Comments patient states that having s ome swelling. anatomy incomplete, circumvallate and marginal cord insertion plan q 4 weeks us precautions reviewed f/u 4 weeks, to lab to draw prenatals Flowsheet Date 05/20/2022 Phelps Score Blood Edema Fundus Height Fundus Units Glucose Ketones Leukocytes Nitrite Labor Signs Protein Cervic Dilation Cervic Effacement Cervic Station Type Weight in lbs Pre/Post Dialysis Refused BP Diastolic BP Location Tested BP Systolic BP Type Fetus Heart Rate Present Fetus Movement Comments Flowsheet Date 05/20/2022 Phelps Score Blood Edema Fundus Height Fundus Units Glucose Ketones Leukocytes Nitrite Labor Signs Protein Cervic Dilation Cervic Effacement Cervic Station neg trace none trace Type Weight in lbs Pre/Post Dialysis Refused Weight 127.060684835603 BP Diastolic BP Location Tested BP Systolic BP Type 73 116 Fetus Heart Rate Present Fetus Movement A Yes Comments patient states that has had some swelling. doing well, anatomy complete EFW 64%, reviewed precautions, plan 4 week gct and growth Flowsheet Date 06/20/2022 Phelps Score Blood Edema Fundus Height Fundus Units Glucose Ketones Leukocytes Nitrite Labor Signs Protein Cervic Dilation Cervic Effacement Cervic Station Type Weight in lbs Pre/Post Dialysis Refused BP Diastolic BP Location Tested BP Systolic BP Type Fetus Heart Rate Present Fetus Movement Comments Flowsheet Date 06/20/2022 Phelps Score Blood Edema Fundus Height Fundus Units Glucose Ketones Leukocytes Nitrite Labor Signs Protein Cervic Dilation Cervic Effacement Cervic Station Type Weight in lbs Pre/Post Dialysis Refused Weight 134.232642558054 BP Diastolic BP Location Tested BP Systolic BP Type 76 118 Fetus Heart Rate Present A 140 Fetus Movement A Yes Comments Here follow up from hospital where she has US that showed 2.6CL and 15% funneling. She is very worried. We discussed how it is very hard to interpret these findings in the late second and third trimester and they are likely insignificant. Clinical precautions given, including contractions, pressure, bleeding, leaking. She has had some mucous discharge, but none of these. BPP 6/8, NST RGA with some small variables. GCT and growth US in 4 days. Questions answered, reassured. Will follow clinically and not repeat CL but check cervix digitally if she has sx. Encouraged flu shot. Flowsheet Date 06/20/2022 Phelps Score Blood Edema Fundus Height Fundus Units Glucose Ketones Leukocytes Nitrite Labor Signs Protein Cervic Dilation Cervic Effacement Cervic Station Type Weight in lbs Pre/Post Dialysis Refused BP Diastolic BP Location Tested BP Systolic BP Type Fetus Heart Rate Present Fetus Movement Comments Flowsheet Date 06/24/2022 Phelps Score Blood Edema Fundus Height Fundus Units Glucose Ketones Leukocytes Nitrite Labor Signs Protein Cervic Dilation Cervic Effacement Cervic Station Type Weight in lbs Pre/Post Dialysis Refused BP Diastolic BP Location Tested BP Systolic BP Type Fetus Heart Rate Present Fetus Movement Comments Flowsheet Date 06/24/2022 Phelps Score Blood Edema Fundus Height Fundus Units Glucose Ketones Leukocytes Nitrite Labor Signs Protein Cervic Dilation Cervic Effacement Cervic Station trace trace none trace Type Weight in lbs Pre/Post Dialysis Refused Weight 134.155898110390 BP Diastolic BP Location Tested BP Systolic BP Type 71 109 Fetus Heart Rate Present Fetus Movement A Yes Comments patient had some bleeding la st week, discharge and swelling. patient is also wanting to discuss medication that is currently taking. discussed the last visit with pt and LD visit, discussed bleeding and labor precautions, reviewed us EFW29%, rpt 4 weeks remind about dap and flu at next visit Flowsheet Date 07/18/2022 Phelps Score Blood Edema Fundus Height Fundus Units Glucose Ketones Leukocytes Nitrite Labor Signs Protein Cervic Dilation Cervic Effacement Cervic Station neg none 30 none trace Type Weight in lbs Pre/Post Dialysis Refused Weight 136.213676994412 BP Diastolic BP Location Tested BP Systolic BP Type 75 114 Fetus Heart Rate Present A 126 Fetus Movement A Yes Comments Doing well. Does have sciati dev. Discussed ways to help with the discomfort. Having a boy Tutu . Encouraged to schedule pre admit. Growth ultrasound this week. Flowsheet Date 07/22/2022 Phelps Score Blood Edema Fundus Height Fundus Units Glucose Ketones Leukocytes Nitrite Labor Signs Protein Cervic Dilation Cervic Effacement Cervic Station Type Weight in lbs Pre/Post Dialysis Refused BP Diastolic BP Location Tested BP Systolic BP Type Fetus Heart Rate Present Fetus Movement Comments Flowsheet Date 07/26/2022 Phelps Score Blood Edema Fundus Height Fundus Units Glucose Ketones Leukocytes Nitrite Labor Signs Protein Cervic Dilation Cervic Effacement Cervic Station neg trace 29 none trace Type Weight in lbs Pre/Post Dialysis Refused Weight 137.910282384027 BP Diastolic BP Location Tested BP Systolic BP Type 73 114 Fetus Heart Rate Present A 140 Fetus Movement A Yes Comments Doing ok. US last week 35%. Will repeat growth at 36w. Discussed short femur, potential causes. Tdap and flu shots done. Has been in triage numerous times with irregular contractions. Now that almost 34w, discussed reasons to go to L and D, labor precautions, discussed normal contractions in 3rd trimester. Flowsheet Date 08/12/2022 Phelps Score Blood Edema Fundus Height Fundus Units Glucose Ketones Leukocytes Nitrite Labor Signs Protein Cervic Dilation Cervic Effacement Cervic Station neg none none trace 3cm 80% -2 Type Weight in lbs Pre/Post Dialysis Refused Weight 141.671211578724 BP Diastolic BP Location Tested BP Systolic BP Type 82 125 Fetus Heart Rate Present Fetus Movement A Yes Comments patient states that having s ome discharge, bleeding, cramping and BH contractions. no contractions on NST, gave very strict precautions on when to go to LD, any increased bleeding, fluid leaking, frequent or painful contractions, off work until 37 weeks f/u next week Flowsheet Date 09/23/2022 Phelps Score Blood Edema Fundus Height Fundus Units Glucose Ketones Leukocytes Nitrite Labor Signs Protein Cervic Dilation Cervic Effacement Cervic Station Type Weight in lbs Pre/Post Dialysis Refused Weight 127.869250752392 BP Diastolic BP Location Tested BP Systolic BP Type 70 110 Fetus Heart Rate Present Fetus Movement Comments Flowsheet Date 11/10/2022 Phelps Score Blood Edema Fundus Height Fundus Units Glucose Ketones Leukocytes Nitrite Labor Signs Protein Cervic Dilation Cervic Effacement Cervic Station Type Weight in lbs Pre/Post Dialysis Refused Weight 128.823551369913 BP Diastolic BP Location Tested BP Systolic BP Type 72 106 Fetus Heart Rate Present Fetus Movement Comments Menstrual History Last Menstrual Date Menses Monthly On Bcp Conception Prior Menses Frequency Hcg Plus Date Menarche Onset Age Genetic Screening And Infection History Question Response Note Mental Retardation/Autism false Patient's Age Will Be 35 Yea rs Or Older At Estimated Date of Delivery false Thalassemia (Bulgarian, Salvadorean, Mediterranean, Or Background): MCV < 80 false Neural Tube Defect (Meningomyelocele, Spina Bifi da, Or Anencephaly) false Congenital Heart Defect false Down Syndrome false Jacob-Sachs (eg, Spiritism, Cajun, Luxembourgish-St Helenian) f alse Emma Disease false Sickle Cell Disease Or Trait () false Hemophilia Or Other Blood Disorders false Muscular Dystrophy false Cystic Fibrosis false Mulu's Chorea false Intellectual Disability/Autism false If Yes, Was Person Tested For Fragile X? false Other Inherited Genetic Or Chromosomal Disorder false Maternal Metabolic Disorder (eg, Type 1 Diabetes , PKU) false Patient Or Baby's Father Had A Child With Defects Not Listed Above false Recurrent Loss, Or A Stillbirth false Medications (including Suppl ements, Vitamins, Herbs, OTC Drugs), Illicit/Recreational Drugs, Alcohol false If Yes, Agent(s) And Strength/Dosage false Any Other Genetic History false Live With Someone With TB Or Exposed To TB false Patient Or Partner Has History Of Genital Herpes false Rash Or Viral Illness Since Last Menstrual Perio d false History Of STD, Gonorrhea, Chlamydia, HPV, Syphi lis true chlamy. Other Infection History false History of HIV false History of Hepatitis false Prior GBS-infected child false Hemoglobinopathy Or Carrier false Other Structural Defect false Recent Travel History Outside of Country false Delivery Information Delivery Date Delivery Type Labor Anesthesia Weeks Gestation Incision Type Labor Labor Length Hrs Delivered By Post Complications Tubal Sterilization Discharge Date Comments murray None 36.2 true Darlene French CNM PROM Discharge Information Feeding Method Contraceptive Method Maternal HG B and HCT Levels
--- OUTSIDE RECORDS SUMMARY | 2024-12-24 17:41 | XMS_ITS | Clinical Summary ---
Author Organization [facility] Address [address] [place] [address] Care Team Providers Care Log Cooker Name Role Phone Unavailable Primary Care Provider Unavailabl e Source Comments [facility],non-owned Affiliates and Associated Physician Practices is amultiple site organization consisting of ambulatory clinics and hospital sitesin [place], [place], [place] and [place]. This disclosure is being madepursuant to the Care Everywhere program and may not contain all information available regarding this patient. Last updated 18.[facility] Allergies No known active allergies Medications * [...] on file Legal Sex Female 5:42 AM EYELETTER Gender Identity Not on file Sexual Orientation [...] patient's age to complete this topic Insurance [facility] * Guarantor: MIRYAM HAIR Account Type Relation to Patient Date of Phone Billing Address Personal/Family Other Advance Directives * Full Code (Latest Code Status on File) Date Activated Date Inactivated Comments 04/13/2015 9:18 PM 04/14/2015 4:19 PM
[2024-12-24 18:04] LABS: Basophils Percent Auto 0.1 % (0.2-1.2); Eosinophils Percent Auto 0.2 % (0-4.4); Hematocrit 38.8 % (37.0-47.0); Hemoglobin 12.4 g/dL (12.0-15.0); Immature Granulocyte Absolute 0.02 K/mm3 (0.00-0.031); Immature Granulocyte Percent A 0.2 % (0-0.5); Lymphocytes Absolute Auto 1.74 K/mm3 (0.9-3.2); Lymphocytes Percent Auto 19.3 % (18.3-44.2); Mean Corpuscular Hemoglobin 28.2 pg (26-34); Mean Corpuscular Volume 88.2 fl (80-100); Mean Platelet Volume 11.4 fl (7.4-10.4); Monocytes Absolute Auto 0.7 K/mm3 (0.1-0.6); Monocytes Percent Auto 7.7 % (2.6-8.5); Neutrophils Absolute Auto 6.5 K/mm3 (1.3-6.7); Neutrophils Percent Auto 72.5 % (45.5-73.1); Platelet Count Result 164 k/mm3 (150-375); Red Cell Distribution Width 12.9 % (11.5-14.5)
[2024-12-24 18:16] LABS: INR 1.1; Partial Thromboplastin Time 27.7 Seconds (22.3-36.8); Prothrombin Time 14.7 Seconds (11.1-14.7)
[2024-12-24 18:18] LABS: Alanine Aminotransferase 29 U/L (6-35); Albumin Level 4.5 g/dL (3.5-5.1); Alkaline Phosphatase 45 U/L (38-126); Anion Gap 8 mmol/L (4-12); Aspartate Amino Transferase 28 U/L (14-36); Bilirubin,Total 0.6 mg/dL (0.2-1.3); Blood Urea Nitrogen 7 mg/dL (7-17); Calcium 8.8 mg/dL (8.4-10.2); Carbon Dioxide 22 mmol/L (22-30); Chloride 107 mmol/L (98-107); Estimated CRCL calculation 124 ml/min; Estimated Glomerular Filt Rate > 60; Glucose 78 mg/dL (65-110); Potassium 3.7 mmol/L (3.4-5.0); Sodium 137 mmol/L (137-145)
[2024-12-24] MEDS: SODIUM CHLORIDE 0.9% IV 1,000 ML 999 ML IV CONT (18:40)
--- NOTE | 2024-12-24 19:15 | ED.FEMALEGU ---
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 Patient states the bleeding was rigidly light pink and now is dark brown. She states the bleeding is light has not required her to change her pad/10 on. Denies passage of tissue or clots. She states she is having lower abdominal cramping and pain that is worse when she is sitting. She reports nausea and vomiting that she is attributing to early . She denies dysuria, hematuria, fever, chills, dizziness or lightheadedness. Related Data Allergies Allergy/AdvReac Type Severity Reaction Status Date / Time No Known Allergies Allergy Mild Verified 12/24/24 15:13 Review of Systems Review of Systems: All systems reviewed & are unremarkable except as noted in HPI and below PMFSH Past Medical History Medical History Endometriosis Surgical History Surgical History H/O ovarian cystectomy S/P laparoscopic procedure Social History Social History Smoking status: Current every day smoker Tobacco type: e-cigarettes/vaping Second hand tobacco smoke exposure: Yes Additional smoking assessment comments: PT STATES ANN BEEN VAPING FOR SEVERAL YEARS NOW. Alcohol intake: never Substance use: never Substance use type: does not use Lack of Transportation: No Lack of Food: Never True Current Housing: I Have Housing Concerned About Future Housing: No Difficulty Paying Gas/Electric Bills: No Difficulty Paying for Meds: No Currently Unemployed: No Education: Trade/Vocational Certificate Difficulty w/ Childcare or Family Care: No Living arrangements: with family Gender identity (if verbalized by the patient): Female Spiritual care concerns: No Exam Narrative: GENERAL: Well-appearing, well-nourished, and in no acute distress. HEAD: Normocephalic, atraumatic. EYES: EOMI. ENT: Nares clear, no rhinorrhea or epistaxis. Mucous membranes moist. NECK: Supple. CHEST: Clear to auscultation. No respiratory distress. HEART: Regular rate and rhythm. No murmur heard. Normal peripheral pulses. ABDOMEN: Normoactive bowel sounds. Abdomen soft with mild tenderness to the suprapubic region. No rebound or rigidity. No CVA tenderness. : Normal external genitalia. Vaginal vault thick white cottage cheese discharge, no bleeding. Cervical os closed. CMT tenderness. No adnexal masses or tenderness EXTREMITIES: Normal range of motion. No edema. SKIN: Warm, dry, no rash. NEURO: No focal deficits. Alert and oriented x3 Course Vital Signs Vital signs: Vital Signs Temperature 97.0 F L 12/24/24 15:15 Pulse Rate 122 H 12/24/24 15:15 Respiratory Rate 18 12/24/24 15:15 Blood Pressure 117/95 H 12/24/24 15:15 Pulse Oximetry 99 12/24/24 15:15 Oxygen Delivery Room Air 12/24/24 15:15 Temperature 98.0 F 12/24/24 23:17 Pulse Rate 97 12/24/24 23:17 Respiratory Rate 16 12/24/24 23:17 Blood Pressure 119/70 12/24/24 23:17 Pulse Oximetry 97 12/24/24 23:17 Oxygen Delivery Room Air 12/24/24 15:15 MDM - Female Genitourinary MDM Narrative Medical decision making narrative: 24-year-old female who is , currently 7 weeks presents to emergency department for pelvic pain and vaginal bleeding that started this afternoon. See HPI for further history. Triage vitals remarkable for tachycardia 112 which is since resolved. Patient is afebrile and nontoxic appearing. Abdomen is soft with mild suprapubic tenderness. Pelvic exam does note white cottage cheese like discharge and cervical motion tenderness. CBC without leukocytosis or anemia. Chemistries are unremarkable. UA indicative of UTI with 51-100 white blood cells and 2+ leuk esterase. Budding yeast also noted consistent with vaginal exam. Trichomonas, gc/chlamydia are negative. Blood type A positive, RhoGAM not required. Beta hCG is 213,170. Pelvis ultrasound shows IMPRESSION: Single intrauterine gestation with an approximate gestational age of 7 weeks and 2 days, with cardiac activity identified. Subchorionic hemorrhage for which short-term follow-up is needed. Patient updated on results. Discussed findings with OBGYN, Dr. Parr, who does not believe patient's presentation is consistent with PID, advises to hold treatment for PID at this time and recommends the patient follows up closely in clinic. Will start the patient on Keflex for UTI and clotrimazole suppository for a yeast vaginitis. Advised to follow-up closely with her OBGYN for recheck beta-hCG in 48 hours. Discussed strict ED return precautions. She and family at bedside are agreeable with the plan verbalized understanding. Discharged in stable condition. Lab Data 12/24/24 17:58 12/24/24 17:58 Labs: Lab Results 12/24/24 12/24/24 12/24/24 Range/Units 17:58 18:33 19:30 WBC 9.0 (4.5-10.0) K/mm3 RBC 4.40 (4.2-5.4) M/mm3 Hgb 12.4 (12.0-15.0) g/dL Hct 38.8 (37.0-47.0) % MCV 88.2 (80-100) fl MCH 28.2 (26-34) pg MCHC 32.0 (32-36) g/dl RDW 12.9 (11.5-14.5) % Plt Count 164 (150-375) k/mm3 MPV 11.4 H (7.4-10.4) fl Immature Gran % (Auto) 0.2 (0-0.5) % Neut % (Auto) 72.5 (45.5-73.1) % Lymph % (Auto) 19.3 (18.3-44.2) % [place] % (Auto) 7.7 (2.6-8.5) % Eos % (Auto) 0.2 (0-4.4) % Baso % (Auto) 0.1 L (0.2-1.2) % Lymph # (Auto) 1.74 (0.9-3.2) K/mm3 [place] # (Auto) 0.7 H (0.1-0.6) K/mm3 Eos # (Auto) 0.0 (0-0.3) K/mm3 Baso # (Auto) 0.0 (0.0-0.1) K/mm3 Abs Immat Gran (auto) 0.02 (0.00-0.031) K/mm3 Absolute Neuts (auto) 6.5 (1.3-6.7) K/mm3 Absolute Nucleated RBC 0.000 (0.0-0.012) K/mm3 Nucleated RBC % 0.0 (0.0-0.2) % PT 14.7 (11.1-14.7) Seconds INR 1.1 APTT 27.7 (22.3-36.8) Seconds Sodium 137 (137-145) mmol/L Potassium 3.7 (3.4-5.0) mmol/L Chloride 107 (98-107) mmol/L Carbon Dioxide 22 (22-30) mmol/L Anion Gap 8 (4-12) mmol/L BUN 7 D (7-17) mg/dL Creatinine 0.60 L (0.7-1.0) mg/dL Estim Creat Clear Calc 124 ml/min Estimated GFR > 60 (59 - ) Glucose 78 (65-110) mg/dL Calcium 8.8 (8.4-10.2) mg/dL Total Bilirubin 0.6 (0.2-1.3) mg/dL AST 28 (14-36) U/L ALT 29 (6-35) U/L Alkaline Phosphatase 45 (38-126) U/L Total Protein 7.0 (6.3-8.2) g/dL Albumin 4.5 (3.5-5.1) g/dL Beta HCG, Quant 965752.00 mIU/ML Urine Color Yellow (Yellow) Urine Appearance Turbid H (Clear) Urine pH 7.0 (5.0-9.0) Ur Specific [place] 1.017 (1.001-1.035) Urine Protein Negative (Negative) mg/dL Urine Glucose (UA) Negative (Negative) mg/dL Urine Ketones Trace H (Negative) mg/dL Ur Blood (Man) Trace (Negative) Urine Nitrate Negative (Negative) Urine Bilirubin Negative (Negative) Urine Urobilinogen 1.0 (<2.0) mg/dL Add Ur Microanalysis Reviewed Leukocyte Esterase Rfl 2+ H (Negative) CHARLETTE/UL Urine RBC 0-2 (0-2) /hpf Urine WBC 51-100 H (0-3) /hpf Ur Squamous Epith Cells Few (Few) /hpf Urine Bacteria 1+ H /hpf Urine Casts 0-2 Urine Yeast (Budding) Present H (None) /hpf C. trachomatis (PCR) Not detected (NOT DETECTE) N. gonorrhoeae (PCR) Not detected (NOT DETECTE) T. vaginalis (PCR) Not detected (NOT DETECTE) Blood Type A Positive Antibody Screen Negative Screen TNP Baby's Blood Type Not Reportable Baby's ALBERTO Not Reportable Doses of RhIg Required 0 Discharge Plan Discharge Clinical Impression: Yeast vaginitis, Vaginal bleeding during , Urinary tract infection affecting , Subchorionic hemorrhage in first trimester Patient Disposition: Home Condition: Stable Instructions: Antibiotic Form, Urinary Tract Infection in Women (DC), Yeast Infection (ED), Abdominal Pain in (ED), Subchorionic Hemorrhage (ED) Additional Instructions: You were evaluated in the emergency department for vaginal bleeding in . Your found have a urinary tract infection and findings concerning for yeast infection. Please take the antibiotics and use the suppositories as directed. Your ultrasound shows a single live intrauterine gestation measuring 7 weeks and 2 days with a subchorionic hemorrhage as discussed. Please follow-up closely with your OBGYN regarding this. Your beta hCG today was 213,170, please have this repeated in 48 hours to ensure this up trending appropriately. Please return to the emergency department if you develop fever, worsening pain, your bleeding through 1 pad or tampon per hour, lightheadedness, or other concerning symptoms. Patient Language: Icelandic Prescriptions: New cephalexin 500 mg capsule 500 mg PO Q6H Qty: 28 0RF clotrimazole 1 % cream 1 appful vaginal HS 7 Days Qty: 45 0RF No Action oxycodone-acetaminophen 5-325 mg tablet 1 tablet PO Q4H PRN (Reason: pain) Qty: 14 0RF Follow-up/Referrals: PHYSICIAN,DAIRY FEED MIXING OPERATOR [Primary Care Provider] - Darlene French CNM [Certified Nurse Textile Conservator] -
[2024-12-24 19:44] LABS: Add Urine Microscopic? YES; Appearance Urine Turbid (Clear); Bacteria Urine 1+ /hpf; Bilirubin Urine Negative (Negative); Blood Urine Trace (Negative); Budding Yeast Urine Present /hpf; Color Urine Yellow (Yellow); Glucose Urine UA Negative (Negative); Ketones Urine Trace mg/dL (Negative); Leukocyte Esterase Ur 2+ LEU/UL (Negative); Need Manual Microscopic Reviewed; Nitrate Urine Negative (Negative); Non Pathogenic Casts 0-2; Protein Urine Negative (Negative); RBC Urine 0-2 /hpf (0-2); Specific Grav Ur 1.017 (1.001-1.035); Squamous Epithelial Cell Urine Few /hpf (Few); WBC Urine 51-100 /hpf (0-3)
[2024-12-24 20:45] LABS: Trichomonas Vag PCR NOT DETECTED (NOT DETECTE)
[2024-12-24 21:08] LABS: Chlamydia trachomatis NOT DETECTED (NOT DETECTE); Neisseria gonorrhoeae PCR NOT DETECTED (NOT DETECTE)
[2024-12-24] MEDS: METOCLOPRAMIDE HCL INJ 10 MG/2 ML VIAL IV PUSH (22:06)
[2024-12-24] MEDS: CEPHALEXIN 500 MG CAPSULE PO (22:43)
== END 2024-12-24 23:18 | disposition home or self-care (01) ==
PROVIDERS: Emergency Provider Physician Assistant
DX: O46.8X1 Other antepartum hemorrhage, first trimester (principal); O23.41 Unspecified infection of urinary tract in pregnancy, first trimester; N39.0 Urinary tract infection, site not specified; O98.811 Other maternal infectious and parasitic diseases complicating pregnancy, first trimester; B37.31 Acute candidiasis of vulva and vagina; O99.891 Other specified diseases and conditions complicating pregnancy; N80.9 Endometriosis, unspecified; O99.331 Smoking (tobacco) complicating pregnancy, first trimester; F17.290 Nicotine dependence, other tobacco product, uncomplicated; Z3A.01 Less than 8 weeks gestation of pregnancy
CPT/HCPCS: 36415; 76801; 76817; 80053; 81001; 84702; 85025; 85461; 85610; 85730; 86850; 86900; 86901; 87070; 87086; 87491; 87591; 87661; 96361; 96374; 99284; A9270; J2765; J7030

== ENCOUNTER 2025-04-02 12:33 | Observation (INO) | payer MEDICAID, SELFPAY ==
--- OUTSIDE RECORDS SUMMARY | 2025-03-31 10:25 | XMS_ITS | Encounter Summary ---
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) Procedures Sonogram - Complete Darlene French APRN-CNP [id number] [facility] [address] [place] [address] [place] [address] Phone: tel: fax: Referral ID Status Reason Start Date Expiration Date V isits Requested Visits Authorized [id number] Pending Review 03/24/2025 03/24/2026 1 1 * (Routine) - Pending Review Specialty Diagnoses / Procedures Referred By Contac t Referred To Contact Diagnoses Encounter for anatomic survey (HCC) 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) Procedures Sonogram - Complete Darlene French APRN-CNP [id number] [facility] [address] [place] [address] [place] [address] Phone: tel: fax: Referral ID Status Reason Start Date Expiration Date V isits Requested Visits Authorized [id number] Pending Review 03/24/2025 03/24/2026 1 1 Reason for Visit * Reason Comments Ultrasound * (Routine) - Pending Review Specialty Diagnoses / Procedures Referred By Gary hutchinson Referred To Contact Diagnoses Encounter for anatomic survey (HCC) 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) Procedures Sonogram - Complete Darlene French APRN-CNP [id number] [address] Phone: tel: fax: Referral ID Status Reason Start Date Expiration Date V isits Requested Visits Authorized [id number] Pending Review 03/24/2025 03/24/2026 1 1 Encounter Details Date Type Department Care Team (Latest Contact Info) Description 03/31/2025 10:25 AM CDT - 03/31/2025 11:59 PM CDT Hospital Encounter [facility] Maternal & Care [address] [place], [place] [id number] Akiko Dinero MD [address] [address] Discharge Disposition: Home or Self Care Social History Tobacco Use Types Packs/Day Years Used Date Smoking Tobacco: Every Day Cigarettes Passive Smoke Exposure: Never Smokeless Tobacco: Never Comments:vape Alcohol Use Standard Drinks/Week Comments Yes 0 (1 standard drink = 0.6 oz pur e alcohol) social Estimated Date of Delivery Comme nts Yes 08/12/2025 Based on last me nstrual period of 11/05/2024 Sex and Gender Information Value Date Recorded Sex Assigned at Not on file 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 Answer Date of Assessment Author No 04/14/2015 3:27 PM CDT Joie Lazar RN * Is person blind or have serious difficulty seeing? Answer Date of Assessment Author No 04/14/2015 3:27 PM CDT Joie Lazar RN * Does person have serious difficulty walking/climbing stairs? Answer Date of Assessment Author No 04/14/2015 3:27 PM CDT Joie Lazar RN * Does person have difficulty dressing/bathing? Answer Date of Assessment Author No 04/14/2015 3:27 PM CDT Joie Lazar RN * Does person have difficulty doing errands alone? Answer Date of Assessment Author No 04/14/2015 3:27 PM ELT Joie Lazar RN documented as of this encounter Mental Status * Does person have difficulty concentrating/remembering/making decisions? Answer Entry Date Author No 04/14/2015 3:27 PM CDT Joie Lazar RN documented in this encounter Medications at Time of Discharge acetaminophen (TYLENOL) 500 MG tablet Take 1 Tab by mouth every 4 hours as needed Maximum allowable Acetaminophen amount = 4 Grams (4000 mg) / 24 hours. 04/14/2015 levonorgestrel (Mirena) 20 MCG/DAY IUD by Intrauterine route as directed Other Insert 1 suppository into the vagina every 12 hours as needed Valium/Baclofen 5/4 mg; place one suppository in the vagina as needed for pain, up to every 12 hours 5 Each 04/22/2024 documented as of this encounter Plan of Treatment Upcoming Encounters Date Type Department Care Team (Late st Contact Info) Description 04/28/2025 10:30 AM CDT Appointment [facility] Maternal & Care [address] [place], [place] [id number] documented as of this encounter Procedures Procedure Name Priority Date/Time Associated Diagnosis Comments SONOGRAM - COMPLETE Routine 03/31/2025 1 0:34 AM CDT Encounter for anatomic survey (HCC) 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 Para 0 [id number] 1. live 2022. Gest. age 36 w + 2 d. Sex of child: male. Details: PPROM Lab Tests Test Date Result NIPT Low risk, Female Maternal Assessment Physical Exam Height 173 cm, 5 ft 8 in. Weight 64 kg, 141 lb. Initial weight 63 kg, 139 lb. BMI 21.44 kg/m . Initial BMI 21.14 kg/m . Weight gain 1 kg, 2 lb Method ====== Transabdominal and transvaginal ultrasound examination. View: Suboptimal view: limited by position ========= Neves . Number of fetuses: 1 Dating ====== Date Details Gest. age MELISSA LMP 11/05/2024 20 w + 6 d 08/12/2025 U/S 03/31/2025 based upon AC, BPD, Femur, HC 21 w + 2 d 08/09/2025 Assigned dating based on the LMP, selected on 03/31/2025 20 w + 6 d 08/12/2025 General Evaluation Cardiac activity present. FHR 147 bpm. Presentation: cephalic Placenta: Placental site: anterior; left lateral. Placental djrf-aq-kzeypzyr os distance 41 mm. not low-lying Umbilical cord: Cord vessels: 3 vessel cord. Insertion site: normal insertion Amniotic fluid: Amount of AF: normal. MVP 4.0 cm Biometry BPD 50.9 mm 21w 3d 72% Hadlock HC 190.0 mm 21w 2d 60% Hadlock Cerebellum tr 22.6 mm 86% [place] Nuchal fold 3.3 mm AC 164.1 mm 21w 3d 64% Hadlock Femur 35.1 mm 21w 1d 49% Hadlock Humerus 32.1 mm 20w 5d 42% Donna HC / AC 1.16 20w 3d 53% Hadlock Weight Calculation: EFW 413 g 68% Hadlock EFW (lb,oz) 0 lb 15 oz EFW by Hadlock ([id number]) Head / Face / Neck Biometry: CM 4.4 mm 25% Nicolaides appropriate Growth Overview Exam date GA BPD (mm) HC (mm) AC (mm) FL (mm) HL (mm) EFW (g) 03/31/2025 20w 6d 50.9 72% 190 60% 164.1 64% 35.1 49% 32.1 42% 413 68% Anatomy The following structures appear normal: Head / Neck Cranium. Lateral ventricles. Choroid plexus. Midline falx. Cavum septi pellucidi. Cerebellum. Cisterna magna. Thalami. Nuchal fold. Face Lips. Profile. Nose. Nasal bone. Orbits. Heart / Thorax 4-chamber view. RVOT view. 5-jcuqtg-fqkrumu view. Situs. Bicaval view. Ductal arch view. Right lung. Left lung. Diaphragm. Abdomen Cord insertion. Stomach. Kidneys. Bladder. Bowel. Genitals. Extremities / Skeleton Arms. Legs. Feet. The following structures could not be adequately visualized: Heart / Thorax LVOT view. 3-vessel view. Aortic arch view. Great vessels. Spine Cervical spine. Thoracic spine. Lumbar spine. Sacral spine. Extremities / Skeleton Hands. Maternal Structures Cervix reassuring Approach - Transvaginal: Cervical length 3.46 cm Funneling absent Right Ovary Not visualized Appearance: Adnexa appears normal Left Ovary Not visualized Appearance: Adnexa appears normal Impression ========= 1) Neves gestation, 20w6d 2) Biometry is consistent with the LMP-based (& previously confirmed) MELISSA of 08/12/25 3) The amniotic fluid volume is within normal limits 4) No abnormalities were detected on detailed anatomic survey 5) Imaging of a portion of the anatomy (see list above) was suboptimal, secondary to positioning 6) A uterine synechiae was not detected during today's examination 7) Transvaginal ultrasound reveals a minimum cervical length of 3.5 cm Comment ======== ultrasound alone cannot detect all structural, genetic, or functional , placental, or maternal abnormalities Follow-up ======== Follow-up ultrasound in ~4 weeks to complete the anatomic survey and reevaluate growth Coding ====== Diagnoses Z36.2: Encounter for other screening follow-up N85.6: Intrauterine synechiae Procedures 91698: US Preg Uterus Detailed 97350: US Preg Uterus Transvaginal [facility] [employer] PACS Anatomical Region Laterality Modality Other 03/31/2025 10:3 4 AM CDT Darlene French PICK UP AND DELIVERY 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
--- NOTE | ~2025-04-02 | US_ITS ---
EXAMINATION: US OB limited DATE: 04/02/2025 14:10 INDICATION: Abdominal pain during second trimester . Assess cervical length. TECHNIQUE: Real-time ultrasound of the pelvis was performed. The interpreting radiologist was not present for the study. COMPARISON: None. FINDINGS: There is a single living fetus in vertex presentation. The placenta is anterior and not low-lying with caudal margin 7.8 cm from the internal cervical os. heart rate is 141 beats per minute (bpm). The amniotic fluid volume is subjectively normal. Normal cervical length of 3.5 cm which is normal. IMPRESSION: 1. Single living fetus in vertex presentation with heart rate of 141 bpm. 2. Normal anterior placenta which is not low-lying with normal cervical length of 3.5 cm. Reviewed, dictated and finalized at location A. IMPRESSION: 1. Single living fetus in vertex presentation with heart rate of 141 bpm . 2. Normal anterior placenta which is not low-lying with normal cervical length of 3.5 cm.
--- OUTSIDE RECORDS SUMMARY | 2025-04-02 12:41 | XMS_ITS | Clinical Summary ---
Author Organization [facility] Address [address] [place] [address] Care Team Providers Care Director Labor Standards Name Role Phone Unavailable Primary Care Provider Unavailabl e Source Comments [facility],non-owned Affiliates and Associated Physician Practices is amultiple site organization consisting of ambulatory clinics and hospital sitesin [place], [place], [place] and [place]. This disclosure is being madepursuant to the Care Everywhere program and may not contain all information available regarding this patient. Last updated 18.[facility] Allergies Active Allergy Reactions Criticality Noted Date Comments Metoclopramide Unknown 03/24/2025 Medications * Be aware that medications may [...] Overview (10/31/2015): right 1 rib fx 03 2016 IMO Updt Fracture of bone Overview (10/31/2015): right 1 rib fx 03 2016 IMO Updt Fracture of bone Overview (10/31/2015): right 1 rib fx 03 2016 IMO Updt Estimated Date of Delivery Comme nts Yes 08/12/2025 Based on last me nstrual period of 11/05/2024 Encounters Date Type Department Care Team Description 03/31/2025 10:25 AM CDT - 03/31/2025 11:59 PM CDT Hospital Encounter 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 Maternal & Care Critical access [facility] [place] [phone] Health Maintenance Due Date Last Done Comments HPV VACCINE (1 - 3-dose series) 2017 MENINGOCOCCAL (Group B) VACCINE SHARED DECISION-MAKING (1 of 2 - Standard) 2018 DTAP/TDAP/TD VACCINES (1 - Tdap) 2021 HEPATITIS B VACCINE (1 of 3 - 19+ 3-dose series) 2021 PNEUMOCOCCAL VACCINE (1 of 2 - PCV) 2021 PAP SMEAR 10/09/2023 COVID-19 VACCINE (3 - season) 2024 12/25/2022, 09/30/2021 DEPRESSION SCREENING 08/07/2024 INFLUENZA VACCINE (#1) 2025 , 05/11/2020, 05/18/2019, Additional history exists OB-TDAP CURRENT 05/13/2025 12/19/2021, Respiratory Syncytial Virus (RSV) Vaccine Pt: or over 60 yrs (1 - Risk 1-dose series) 06/17/2025 CHLAMYDIA/GONORRHEA SCREENING 02/26/2026 02/26/2025, 01/14/2025, 12/15/2023 ZOSTER VACCINE (1 of 2) 2052 HEPATITIS C SCREENING Completed 01/14/2025 HIV SCREENING Completed 01/14/2025, 05/20/2022 HIB VACCINE Aged Out No longer eligi ble based on patient's age to complete this topic MENINGOCOCCAL GROUPS A/C/Y/W VACCINE Aged Out No longer eligible based on patient's age to complete this topic Procedures Procedure Name Priority Date/Time Associated Diagnosis Comments SONOGRAM - COMPLETE Routine 03/31/2025 1 0:34 AM CDT Encounter for anatomic survey (HCC) 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 Para 0 [id number] 1. live 2022. Gest. age 36 w [...] Placenta: Placental site: anterior; left lateral. Placental txsy-ef-iwmdynsu os distance 41 mm. not low-lying Umbilical [...] 0 lb 15 oz EFW by Hadlock ([id number]) Head / Face / Neck Biometry: CM [...] Heart / Thorax 4-chamber view. RVOT view. 8-azuxyx-fwhffyp view. Situs. Bicaval view. Ductal arch view. 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
[2025-04-02 12:48] VITALS: BP 108/63; PULSE 74
--- NOTE | 2025-04-02 12:58 | PC.NURSE ---
Notified Valerie French CNM of pt. admission to OBS for back cramping starting yesterday and shooting abdominal pain in the RLQ that radiates to pt. vagina. Order received for a UA.
[2025-04-02 13:00] VITALS: BP 105/61; PULSE 74
[2025-04-02 13:13] VITALS: BMI 21.4
--- NOTE | 2025-04-02 13:13 | OBADM ---
This patient, Miryam Hair, admitted to the OB room 116 for observation. Patient/family oriented to hospital policies and general routines including ID bracelet, bed and alarms, visiting hours, pain management, procedures, bathroom and other care routines, personal items, smoking policy, room service/diet, and visiting hours. Patient/Family are encouraged to report perceived risks to care and to ask questions if they do not understand what they are told or what they should do.
[2025-04-02 13:15] VITALS: BP 103/57; PULSE 77
[2025-04-02 13:24] LABS: Add Urine Microscopic? YES; Appearance Urine Clear (Clear); Glucose Urine UA Negative (Negative); Leukocyte Esterase Ur Trace LEU/UL (Negative); Nitrate Urine Negative (Negative); Non Pathogenic Casts 0-2; Specific Grav Ur 1.007 (1.001-1.035)
[2025-04-02 13:30] VITALS: BP 98/66; PULSE 73
[2025-04-02 13:45] VITALS: BP 94/54; PULSE 77
[2025-04-02] MEDS: ACETAMINOPHEN 500 MG TABLET 1000 MG PO (13:49)
--- NOTE | 2025-04-02 13:59 | PC.NURSE ---
[facility] called in and spoke to Mino White RN stating she reviewed urine results which were negative. Order received for 1,000 mg PO tylenol x1 and US to check for cervical length.
--- NOTE | 2025-04-02 14:21 | PC.NURSE ---
Notified Valerie French CNM of Cervical length of 3.5 cm. Orders received to dc pt. to home care with increased rest and PO hydration. Referral to be sent via nurse practitioner manager for PT. Pt. can take tylenol at home for pain and is to call the office if symptoms worsen or if pt. is in need of anything.
--- NOTE | 2025-04-03 18:15 | PM.OBTRLD ---
OB - Triage/Final Diagnosis Visit Information Date of evaluation: 04/02/25 Reason for evaluation: other (cramping) Comments/Additional reasons for admission: I have assessed the risk for this patient, Miryam Hair, and determined that she would benefit from observation care. Evaluation Laboratory results: Laboratory Tests 04/02/25 13:07 Urine Color Yellow Urine Appearance Clear Urine pH 6.5 Ur Specific Shedd 1.007 Urine Protein Negative Urine Glucose (UA) Negative Urine Ketones Negative Ur Blood (Man) Negative Urine Nitrate Negative Urine Bilirubin Negative Urine Urobilinogen 1.0 Leukocyte Esterase Rfl Trace H Urine RBC 0-2 Urine WBC 0-5 Ur Squamous Epith Cells None seen Urine Bacteria None seen Urine Casts 0-2
== END 2025-04-02 14:40 | disposition home or self-care (01) ==
PROVIDERS: Advanced Practice Midwife; Admitting Provider Obstetrics & Gynecology; Visit Provider Obstetrics & Gynecology
DX: O26.92 Pregnancy related conditions, unspecified, second trimester (principal); R10.9 Unspecified abdominal pain; Z3A.21 21 weeks gestation of pregnancy
CPT/HCPCS: 76815; 81001; A9270; G0378; G0379

== ENCOUNTER 2025-05-19 23:55 | Observation (INO) | payer OTHER, SELFPAY ==
--- NOTE | 2025-05-19 23:55 | PC.NURSE ---
Pt arrives to unit with contractions and leaking started at 2200.
[2025-05-20] VITALS (13 sets, daily range): BP systolic 105–110; BP diastolic 65–69; PULSE 65–93; TEMP 36.5; O2SAT 100; BMI 22.5
--- OUTSIDE RECORDS SUMMARY | 2025-05-20 00:03 | XMS_ITS | Clinical Summary ---
Author Organization [facility] Address [address] [place] [address] Care Team Providers Care Laboratory Scientist Name Role Phone Unavailable Primary Care Provider Unavailabl e Source Comments [facility],non-owned Affiliates and Associated Physician Practices is amultiple site organization consisting of ambulatory clinics and hospital sitesin [place], [place], [place] and [place]. This disclosure is being madepursuant to the Care Everywhere program and may not contain all information available regarding this patient. Last updated 18.[facility] Allergies Active Allergy Reactions Criticality Noted Date [...] Encounters Date Type Department Care Team Description 04/28/2025 10:24 AM CDT - 04/28/2025 11:59 PM CDT Hospital Encounter [facility] Maternal & Care [address] [place] [id number] Akiko Dinero MD Discharge Disposition: Home or Self Care 03/31/2025 10:25 AM CDT - 03/31/2025 11:59 PM CDT Hospital Encounter [facility] Maternal & Care [address] [place] [id number] Akiko Dinero MD Discharge Disposition: Home or [...] on file 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 Gender Identity Not on file Sexual Orientation [...] 2 - PCV) 2021 PAP SMEAR 10/09/2023 DEPRESSION SCREENING 08/07/2024 COVID-19 VACCINE (3 - season) 2025 12/25/2022, 09/30/2021 INFLUENZA VACCINE (#1) 2025 , 05/11/2020, 05/18/2019, Additional history exists OB-ONE HOUR GLUCOSE 05/06/2025 OB-TDAP CURRENT 05/13/2025 12/19/2021, OB-RHOGAM INJECTION 05/20/2025 Respiratory Syncytial Virus (RSV) Vaccine Pt: or [...] Associated Diagnosis Comments SONOGRAM - COMPLETE Routine 04/28/2025 1 0:32 AM CDT 24 weeks gestation of (HCC) Uterine synechiae Encounter for anatomic survey ([facility]) History of delivery, currently ([facility]) SONOGRAM - COMPLETE Routine 03/31/2025 1 0:34 AM CDT Encounter for anatomic survey (HCC) 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 Linked Results Indication ======== Incomplete anatomy 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 Para 0 [id number] 1. live 2022. Gest. age 36 w + 2 d. Sex of child: male. Details: PPROM Lab Tests Test Date Result NIPT Low risk, Female Maternal Assessment Physical Exam Height 173 cm, 5 ft 8 in. Weight 66 kg, 145 lb. Initial weight 63 kg, 139 lb. BMI 22.05 kg/m . Initial BMI 21.14 kg/m . Weight gain 3 kg, 6 lb Method ====== Transabdominal ultrasound. View: Suboptimal view: limited by position ========= Neves . Number of fetuses: 1 Dating ====== Date Details Gest. age MELISSA LMP 11/05/2024 24 w + 6 d 08/12/2025 Stated MELISSA 24 w + 6 d 08/12/2025 U/S 04/28/2025 based upon AC, BPD, Femur, HC 24 w + 6 d 08/12/2025 Assigned dating based on the LMP, selected on 03/31/2025 24 w + 6 d 08/12/2025 General Evaluation Cardiac activity present. FHR 137 bpm. Presentation: breech Placenta: Placental site: anterior Umbilical cord: Cord vessels: 3 vessel cord. Insertion site: normal insertion Amniotic fluid: Amount of AF: normal. MVP 4.7 cm Biometry BPD 60.0 mm 24w 3d 28% Hadlock HC 225.9 mm 24w 4d 21% Hadlock AC 215.0 mm 26w 0d 76% Hadlock Femur 44.3 mm 24w 4d 28% Hadlock Humerus 41.0 mm 24w 6d 38% Donna HC / AC 1.05 Weight Calculation: EFW 790 g 58% Hadlock EFW (lb,oz) 1 lb 12 oz EFW by Hadlock ([id number]-FL) appropriate Growth Overview Exam date GA BPD (mm) HC (mm) AC (mm) FL (mm) HL (mm) EFW (g) 03/31/2025 20w 6d 50.9 72% 190 60% 164.1 64% 35.1 49% 32.1 42% 413 68% 04/28/2025 24w 6d 60 28% 225.9 21% 215 76% 44.3 28% 41 38% 790 58% Anatomy The following structures appear normal: Heart / Thorax LVOT view. 3-vessel view. Aortic arch view. Great vessels. Abdomen Stomach. Kidneys. Bladder. Spine Cervical spine. Thoracic spine. Lumbar spine. The following structures could not be adequately visualized: Spine Sacral spine. Extremities / Skeleton Hands. The following structures were documented previously: Head / Neck Cranium. Lateral ventricles. Choroid plexus. Midline falx. Cavum septi pellucidi. Cerebellum. Cisterna magna. Thalami. Nuchal fold. Face Lips. Profile. Nose. Nasal bone. Orbits. Heart / Thorax 4-chamber view. RVOT view. 3-mhykhh-eywhdfq view. Situs. Bicaval view. Ductal arch view. Right lung. Left lung. Diaphragm. Abdomen Cord insertion. Bowel. Genitals. Extremities / Skeleton Arms. Legs. Feet. 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
--- OUTSIDE RECORDS SUMMARY | 2025-05-20 00:03 | XMS_ITS | Data Portability ---
Author Organization [place] [facility], Main Office Address [address] [place] [address] Assessment Encounter Date Assessment Date Assessment LastModified by Organization Details LastModified Time 07/27/2023 07/27/2023 This note is dictated and transcribed by [employer]. [employer] variances may occur. Despite proofreading, typographical errors may occur. Occasional wrong-word or 'mwmhb-g-efpt' substitutions may have occurred due to the inherent limitations of voice recording. Read the chart carefully and recognize, using context, where substitutions have occurred. Not available 08/06/2023 10:04:25 02/29/2024 02/29/2024 This note is dictated and transcribed by [employer]. [employer] variances may occur. Despite proofreading, typographical errors may occur. Occasional wrong-word or 'zfpvq-f-pgyd' substitutions may have occurred due to the inherent limitations of voice recording. Read the chart carefully and recognize, using context, where substitutions have occurred. Not available 02/29/2024 12:09:10 04/14/2025 04/14/2025 This note is dictated and transcribed by [employer]. [employer] variances may occur. Despite proofreading, typographical errors may occur. Occasional wrong-word or 'ftqph-g-ckdc' substitutions may have occurred due to the inherent limitations of voice recording. Read the chart carefully and recognize, using context, where substitutions have occurred. Not available 04/14/2025 11:32:54 Plan of Treatment Reminders Order Date Submit Date Provider Last Modified By Organization Details Last Modified Time Details Appointments None recorded. Lab CT + NG + TV, DNA, urine/swab 2023 024 [facility], [address] [place], [address], 4 09:48:02 hepatitis C virus Ab, serum 2023 [facility], [address] [place], [address], 4 09:48:02 CMP, serum or plasma 2023 [facility], [address] [place], [address], 4 11:22:46 CBC w/ auto diff 2023 [facility], [address] [place], [address], 4 09:48:03 vitamin D, 25-hydroxy , total, serum 2023 [facility], [address] [place], [address], 4 09:48:03 HbA1c (hemoglobi n A1c), blood 2023 [facility], [address] [place], [address], 4 09:48:03 lipid panel, serum 2023 [facility], [address] [place], [address], 4 09:48:03 iron + TIBC + ferritin, serum 2023 [facility], [address] [place], [address], 4 09:48:03 TSH + free T4, serum 2023 [facility], [address], [place], [address], 4 09:48:03 Referral psychiatri referral - History of depression 2023 024 [email or web address] 2 Stacey Elizalde Pmhnp, [address] [address], [place], [address], 5 12:43:17 Procedures None recorded. Surgeries None recorded. Imaging None recorded. Medication Orders bupropion HCl XL 150 mg 24 hr tablet, extended release 2023 024 [id number], [address], [place], [address], 4 14:57:27 ketoconazo le 2 % topical cream 2023 [id number], [address], [place], [address], 4 12:09:33 Patient TargetsNo targets recorded. Patient Instructions Encounter Date Encounter Id Patient Instructions Last Modified By Organization Details Last Modified Time 07/27/2023 [id number] [email or web address]: care instructions Not available 07/27/2023 15:47:03 Patient is to so ak in warm Epsom salt soaks math for approximately 20 min daily for 5-7 days until infection has resolved. Patient is to dress the wound daily with topical antibiotic ointment and Band-Aid. Patient to monitor for signs of infection, if worsens seek medical attention at the nearest ER. Not available 08/06/2023 10:05:04 02/29/2024 [id number] Follow up in 6 months Obtain labs Prescription sent to pharmacy [email or web address] Not available 02/29/2024 14:56:05 Reason for Referral Psychiatrist Referral for An xiety History of depression Referring Physician: Steff Harrell, Internal Medicine, Encounter Date: 02/29/2024 Results Created Date Observation Date Name Description Value Unit Range Abnormal Flag Note LastModifiedBy Organization Detail LastModifiedTime Result Notes None recorded. Problems Name Problem SNOMED Code Status Onset Date Resolution Date Notes Provider Name and Address Organization Details Recorded Time Closed fracture of shaft of radius 9188835 Active Not Available [facility] 3 05:11:17 Cyst of ovary 31530161 Active Steff Harrell APRN [address], [address], [place], [address] , [employer] 4 13:54:16 Allergic contact dermatitis 222659781 Active Steff Harrell APRN [address], [address], [place], [address] , [employer] 4 20:02:14 Urinary tract infectious disease 16999145 Active 2021 Not Available [facility] 3 05:11:17 Acute sinusitis 96033948 Active 2021 Not Available [facility] 3 05:11:17 Migraine 10260345 Active 2022 Steff Harrell APRN [address], [address], [place], [address] , [facility] 4 13:53:39 Ingrowing toenail 429199565 Active 2022 Garth Brian DPM [address], [address], [place], [address] , [facility] 3 14:16:15 Onychomycosis of toenails 241257634 Active 2023 Garth Brian DPM [address], [address], [place], [address] , [employer] 4 12:09:01 Dystrophia unguium 72250144 Active 2023 Garth Brian DPM [address], [address], [place], [address] , [employer] 4 12:09:05 Anxiety 32240088 Active 2023 Steff Harrell APRN [address], [address], [place], [address] , [employer] 4 14:47:53 Depressive disorder 49685517 Active 2023 Steff Harrell APRN [address], [address], [place], [address] , [facility] [employer] [facility] 4 14:48:06 Intrauterine contraceptive device in situ 317492524 Active 2023 Steff Harrell APRN [address], [address], [place], [address] , [employer] 4 14:57:10 First trimester 16540280 Active 2024 Garth Brian DPM [address], [address], [place], [address] , [employer] [facility] 5 11:33:07 Notes:FEMALE PROBLEMS/INFECT IONS Problem Notes None recorded. Procedures Surgical History Date Name Laterality Status Provider Name and Address Organization Details Recorded Time 04/14/20 25 Nail Debridement completed Garth Brian DPM [address], [address], [place], [address], [employer] 04/14/2025 11:33:43 02/29/20 24 Nail Debridement completed Garth Brian DPM [address], [address], [place], [address], [employer] 02/29/2024 12:33:56 07/27/20 23 Blank Procedure Note completed Garth Brian DPM [address], [address], [place], [address], [facility] [employer] 07/27/2023 15:46:29 04/03/20 23 Nail Debridement completed Garth Brian DPM [address], [address], [place], [address], [employer] [facility] [employer] 04/03/2023 14:14:45 09/04/19 21 tonsilectomy/tristen noids completed Not Available [facility] 10/05/2022 05:05:00 08/07/19 21 Removal of ovarian cyst(s) completed Not Available [facility] 10/05/2022 05:05:00 tympanostomy completed Not Available [facility] 10/05/2022 05:05:00 Imaging Results None recorded. Procedure Notes None recorded. Medical Equipment None Reported. Allergies Allergen ID Allergen Name Allergen Category Reaction Reaction Severity Criticality Documentation Date Start Date Code Code System Note Provider Name and Address Organization Details Recorded Time 03771 No known allergy (situatio n) Not available Not available Not available Not available 02/22/2024 [id number] [id number] SNOMED Steffmichell Harrell, [employer] [address] [facility], [address], [place], [address], [facility] [employer] [facility] 13:54:25 No known drug allergies Medications Name [...] mg tablet TAKE 1 TABLET BY MOUTH NOW AND REPEAT IN 72 HOURS active Not Available Not Available No t Available benzonatate 200 mg capsule Take 1 [...] vaginal gel INSERT 1 APPLICATO RFUL VAGINALLY AT NIGHT X5 DAYS active Not Available Not Available No t Available ondansetron HCl 4 mg tablet TAKE 1 TABLET BY MOUTH EVERY 8 HOURS active Not Available Not Available No t Available prednisone 20 mg tablet TAKE 3 TABLETS BY MOUTH ONCE DAILY FOR 5 DAYS 02/21 completed Not Available Not Available Not Available sertraline 100 mg tablet TAKE 1 TABLET BY MOUTH EVERY DAY active Not Available Not Available No t Available clotrimazol e 1 % vaginal cream INSERT 1 APPLICATO RFUL VAGINALLY AT BEDTIME FOR 7 DAYS active Not Available Not Available No t Available metronidazo le 500 mg tablet TAKE 1 TABLET BY MOUTH EVERY 8 HOURS active Not Available Not Available No t Available ciprofloxac in 500 mg tablet TAKE [...] Not Available Not Available No t Available ondansetron 8 mg disintegrat ing tablet PLACE 1 TABLET EVERY DAY BY TRANSLING UAL ROUTE active Not Available Not Available No t [...] 1 CAPSULE BY MOUTH EVERY 6 HOURS active Not Available Not Available No t Available nitrofurant oin macrocrysta l 100 mg capsule TAKE 1 CAPSULE BY MOUTH EVERY 12 HOURS FOR 7 DAYS 04/03 completed Not Available Not Available Not Available polymyxin B sulfate 10,000 unit-trimet hoprim 1 mg/mL eye drops INSTILL 1 DROP INTO THE AFFECTED EYE(S) EVERY 3 HOURS FOR 10 DAYS 02/21 completed Not Available Not Available Not Available sertraline 25 mg tablet TAKE 1 TABLET BY MOUTH EVERY DAY active Not Available Not Available No t Available sodium chloride 0.9 % intravenous solution [...] BY MOUTH EVERY 12 HOURS WITH FOOD active Not Available Not Available No t Available amoxicillin 875 mg-potassiu m clavulanate 125 [...] MOUTH UP TO 3 TIMES DAILY NEEDED active Not Available Not Available No t Available 08/26 (21) 1 mg-20 mcg tablet TAKE 1 TABLET BY MOUTH EVERY DAY 02/28 completed Not Available Not Available Not Available bupropion HCl XL 150 mg 24 hr tablet, extended release TAKE 1 TABLET BY MOUTH EVERY DAY active Not Available Not Available No t Available metronidazo le 1 % topical gel APPLY TO AFFECTED AREA EVERY DAY RUB IN GENTLY AND COMPLETEL Y active Not Available Not Available No t Available Symbicort 80 mcg-4.5 mcg/actuati on HFA aerosol inhaler Inhale 2 puffs twice a day by inhalatio n route. 04/03 completed Not Available Not Available [...] in Arterial blood by Pulse oximetry Systolic And Diastolic Provider Name and Address Organization Details Last Updated DateTime 4 20.5 kg/m2 55312.9 7 g 62 /min 97.3 [degF] 14 /min 98 % 98 % 110/70 mm[Hg] Darlene Almanza [facility] [place] [facility] [employer] [facility] 4 11:30:46 Date Recorded Body height Provider Name an d Address Organization Details Last Updated DateTime 02/29/2024 172.72 cm Daly Canseco [place] [facility] [place] [facility] [employer] [facility] 02/29/2024 11:28:37 Date Recorded Body height Body mass index (BMI) Body weight Body temperature Heart rate Oxygen saturation Oxygen saturation in Arterial blood by Pulse oximetry Systolic And Diastolic Provider Name and Address Organization Details Last Updated DateTime 4 172.72 cm 21.1 kg/m2 86918.3 4 g 98.3 [degF] 75 /min 98 % 98 % 108/60 mm[Hg] [place] [facility] [place] [facility] [employer] [facility] 4 14:39:02 Date Recorded Body height Body mass index (BMI) Body mass index (BMI) [Percentile] Per age and sex Body weight Provider Name and Address Organization Details Last Updated DateTime 04/03/2023 172.72 cm 20.5 kg/m2 34 % 76560.97 g Kathy Weldon [facility] [employer] [facility] 04/03/2023 14:00:52 Date Recorded Heart rate Respiratory rate Oxygen saturation Oxygen saturation in Arterial blood by Pulse oximetry Systolic And Diastolic Provider Name and Address Organization Details Last Updated DateTime 3 60 /min 14 /min 99 % 99 % 141/94 mm[Hg] Rani Barraza [facility] [employer] [facility] 3 13:58:40 Date Recorded Heart rate Oxygen saturation Oxygen saturation in Arterial blood by Pulse oximetry Body temperature Systolic And Diastolic Provider Name and Address Organization Details Last Updated DateTime 5 71 /min 97 % 97 % 97.5 [degF] 106/82 mm[Hg] Tevin Proctor Rob [facility] [employer] [facility] 5 11:10:56 Date Recorded Body height Body mass index (BMI) Body weight Provider Name and Address Organization Details Last Updated DateTime 04/14/2025 172.72 cm 20.5 kg/m2 70611.97 g Rani Barraza [facility] [employer] [facility] 04/14/2025 11:08:05 Social History Question Answer Notes LastModified by Organizat ion Details LastModified Time Tobacco Smoking Status Never Smoker Not Available [facility] 10/05/2022 05:03:55 Do You Have An Advance Directive? No [id number] Information not available 10/05/2022 What Is Your Level Of Caffeine Consumption? Heavy [id number] Information not available 10/05/2022 How Much Tobacco Do You Chew? None [id number] Information not available 10/05/2022 In The 14 Days Before Symptom Onset, Have You Had Close Contact With A Laboratory-confirm ed COVID-19 While That Case Was Ill? No [id number] Information not available 10/05/2022 In The 14 Days Before Symptom Onset, Have You Had Close Contact With A Person Who Is Under Investigation For COVID-19 While That Person Was Ill? No [id number] Information not available 10/05/2022 What Type Of Diet Are You Following? REGULAR [id number] Information not available 10/05/2022 Which Illicit Or Recreational Drugs Have You Used? None [id number] Information not available 10/05/2022 Have There Been Any Changes To Your Family Or Social Situation? No Information no t available 02/29/2024 Are There Any Guns Present In Your Home? No [id number] Information not available 10/05/2022 Do You Use [...] How Much Tobacco Do You Smoke? No [id number] Information not available 10/05/2022 Do You Use Sunscreen Routinely? Yes [id number] Information not available 10/05/2022 How Many Years Have You Smoked Tobacco? 0 [id number] Information not available 10/05/2022 Have You Recently [...] used smokeless tobacco? Never used smokeless tobacco MIGRATION.[id number] Information not available 10/05/2022 Are you currently employed? Yes Information not available 02/29/2024 What is your occupation? [employer] MIGRATION.[id number] Information not available 10/05/2022 Do you or have you ever used e-cigarettes or vape? Current user of electronic cigarettes Information not available 02/29/2024 What is your exercise level? Moderate Information not available 02/29/2024 Mental Status Question Answer Note LastModified by Organization D etails LastModified Time Do you feel stressed (tense, restless, nervous, or anxious, or unable to sleep at night)? [id number] Information not available 02/29/2024 Family History Relationship Description Onset Age of this Age Resolved Age Notes LastModified by Organization Details LastModified Time Mother Diabetes mellitus [id number] Not available 10/05/2022 05:05:06 Mother Lupus erythematosu s [id number] Not available 10/05/2022 05:05:06 Father Diabetes mellitus [...] ARTERY DISEASE (CAD) N ADDICTION CONCERNS N Impotence N ENDOMETRIOSIS N USE OF BLOOD THINNERS N SKIN [...] APNEA N CHICKENPOX N INFECTIOUS DISEASE N PROSTATE N HEART ARRHYTHMIA N INSOMNIA N HIGH CHOLESTEROL / HYPERLIPIDEMIA N EYE PROBLEMS N HYPERTHYROIDISM N NEUROLOGICAL PROBLEMS N EDEMA N CHRONIC PAIN SYNDROME N HYPOTHYROIDISM N CONSTIPATION N CAROTID BLOCKAGE N BACK / NECK PROBLEMS N HAVE YOU BEEN HOSPITALIZED OR SEEN IN [facility] IN THE PAST YEAR ? N ATHEROSCLEROSIS N BREAST PROBLEMS N DIALYSIS N ECZEMA N OSTEOPOROSIS N ARTHRITIS N APPENDICITIS N DIABETES, TYPE N BAD TEETH N ENT N HEARTBURN / REFLUX N AUTISM SPECTRUM DISORDER (ASD) N HEPATITIS / LIVER DISEASE N PULMONARY DISEASE N GOUT N SLEEP DISORDER N ALZHEIMER'S DISEASE N Brain Problems N DEMENTIA N HERPES N SEIZURES/EPILEPSY N HEADACHES/MIGRAINES Y VASCULAR DISEASE N PACEMAKER N Blood Disorder N DIZZINESS N HEART DISEASE/HEART PROBLEMS N KIDNEY DISEASE N MULTIPLE SCLEROSIS N CANCER: SPECIFY N CARDIAC ARRHYTHMIA N ANESTHESIA COMPLICATIONS N ATRIAL FIBRILLATION N [...] preservative 8 completed Steff Harrell APRN [address] [facility] [address] [address], [place], [address], [facility] [employer] [facility] 02/29/2024 14:47:12 Hib, unspecified formulation 3 completed Steff Harrell APRN [address] [facility] [address], [place], [address], [facility] [employer] [facility] [place] [facility] [employer] [facility] 02/29/2024 14:47:12 Hib, unspecified formulation 3 completed Steff Harrell APRN [address], [place], [address], [facility] [employer] [facility] [employer] [facility] 02/29/2024 14:47:12 Hib, unspecified formulation 4 completed Steff Harrell APRN [address], [address], [place], [address], [facility] [employer] [facility] [employer] [facility] 02/29/2024 14:47:12 Hib, unspecified formulation 3 completed Steff Harrell APRN [address], [address], [place], [address], [facility] [employer] [facility] [employer] [facility] 02/29/2024 14:47:12 HPV9 9 completed Stfef Harrell APRN [address], [place], [address], [facility] [employer] [facility] [employer] [facility] 02/29/2024 14:47:12 IPV 3 completed Steff Harrell APRN [address], [address], [place], [address], [facility] [employer] [facility] 02/29/2024 14:47:12 IPV 7 completed Steff Harrell APRN [address], [address], [place], [address], [facility] [employer] [facility] [employer] [facility] 02/29/2024 14:47:12 IPV 3 completed Steff Harrell APRN [address], [address], [place], [address], [facility] [employer] [facility] [employer] [facility] 02/29/2024 14:47:12 IPV 4 completed Steff Harrell APRN [address], [address], [place], [address], [facility] [employer] [facility] [employer] [facility] 02/29/2024 14:47:12 Influenza, MDCK, quadrivalent, PF 3 completed Steff Harrell APRN [address], [address], [place], [address], [facility] [employer] [facility] 02/29/2024 14:47:12 Influenza, live, trivalent, intranasal, PF 2 completed Steff Harrell APRN [address], [address], [place], [address], [facility] [employer] [facility] 02/29/2024 14:47:12 Influenza, live, trivalent, intranasal, PF 3 completed Steff Harrell APRN [address], [address], [place], [address], [facility] [employer] [facility] 02/29/2024 14:47:12 MMR 8 completed Steff Harrell APRN [address], [address], [place], [address], [facility] [employer] [facility] 02/29/2024 14:47:12 MMR [address], [place], [address], [facility] [employer] [facility] 02/29/2024 14:47:12 COVID-19, mRNA, LNP-S, PF, 30 mcg/0.3 mL dose, pema-sucrose 2 completed Steff Harrell APRN [address], [address], [place], [address], [facility] [employer] [facility] 02/29/2024 14:47:12 COVID-19, mRNA, LNP-S, bivalent, PF, 30 mcg/0.3 mL dose 3 completed Steff Harrell APRN [address], [address], [place], [address], [facility] [employer] [facility] 02/29/2024 14:47:12 pneumococcal conjugate PCV 7 [address], [place], [address], [facility] [employer] [facility] 02/29/2024 14:47:12 pneumococcal conjugate PCV 7 [address], [address], [place], [address], [facility] 02/29/2024 14:47:12 pneumococcal conjugate PCV 7 3 completed Steff Harrell APRN [address], [address], [place], [address], [employer] [facility] 02/29/2024 14:47:12 influenza, unspecified formulation 3 completed Steff Harrell APRN [address], [address], [place], [address], [email or web address] 02/29/2024 14:47:12 influenza, unspecified formulation 6 completed Steff Harrell APRN [address], [address], [place], [address], [facility] 02/29/2024 14:47:12 influenza, unspecified formulation 3 [address], [place], [address], [facility] 02/29/2024 14:47:12 influenza, unspecified formulation 5 completed Steff Harrell APRN [address], [address], [place], [address], [employer] [facility] 02/29/2024 14:47:12 Tdap 2 completed [address], [address], [place], [address], [facility] 02/29/2024 14:47:12 Tdap 4 completed [address], [address], [place], [address], [employer] [facility] 02/29/2024 14:47:12 varicella [address], [place], [address], [employer] [facility] 02/29/2024 14:47:12 varicella 8 completed Steff aHrrell APRN [address], [address], [place], [address], [employer] [facility] 02/29/2024 14:47:12 influenza, split (incl. purified surface antigen) 8 completed Steff Harrell APRN [address], [address], [place], [address], [employer] [facility] 02/29/2024 14:47:12 HPV, quadrivalent 4 completed Steff Harrell APRN [address], [address], [place], [address], [employer] [facility] 02/29/2024 14:47:12 Hep B, adolescent or pediatric 3 completed Steff Harrell APRN [address], [address], [place], [address], [employer] [facility] 02/29/2024 14:47:12 Hep B, adolescent or pediatric 3 completed Steff Harrell APRN [address], [address], [place], [address], [employer] [facility] 02/29/2024 14:47:12 Hep B, adolescent or pediatric 3 completed Steff Harrell APRN [address], [address], [place], [address], [employer] [facility] 02/29/2024 14:47:12 Hep B, adolescent or pediatric 3 completed Steff Harrell APRN [address], [address], [place], [address], [employer] [facility] 02/29/2024 14:47:12 Hep A, pediatric, unspecified formulation 6 completed Steff Harrell APRN [address], [address], [place], [address], [employer] [facility] 02/29/2024 14:47:12 Hep A, pediatric, unspecified formulation 5 completed Steff Harrell APRN [address], [address], [place], [address], [employer] [facility] 02/29/2024 14:47:12 meningococcal MCV4P 2 completed Steff Harrell APRN [address], [address], [place], [address], [place] [facility] 02/29/2024 14:47:12 meningococcal MCV4P 4 completed Steff Harrell APRN [address], [address], [place], [address], [place] [facility] 02/29/2024 14:47:12 DTaP 3 completed Steff Harrell APRN [address], [address], [place], [address], [place] [facility] 02/29/2024 14:47:12 DTaP 7 completed Steff Harrell APRN [address], [address], [place], [address], [place] [facility] 02/29/2024 14:47:12 DTaP 3 completed Steff Harrell APRN [address], [address], [place], [address], [place] - [facility] 02/29/2024 14:47:12 DTaP 4 completed Steff Harrell APRN [address], [address], [place], [address], [place] [facility] 02/29/2024 14:47:12 DTaP 3 completed Steff Harrell APRN [address], [address], [place], [address], [place] [facility] 02/29/2024 14:47:12 Influenza, live, quadrivalent, intranasal 4 completed Steff Harrell APRN [address], [place], [address], [place] [facility] 02/29/2024 14:47:12 Influenza, split virus, quadrivalent, PF 0 completed Steff Harrell, [employer] [address], [place], [address], [facility] 02/29/2024 14:47:12 Influenza, split virus, quadrivalent, PF 6 completed Steff Harrell APRN [address], [place], [address], [facility] 02/29/2024 14:47:12 Influenza, split virus, quadrivalent, preservative 0 completed Steff Harrell APRN [address], [place], [address], [facility] 02/29/2024 14:47:11 Influenza, split virus, quadrivalent, preservative 9 completed Not Available [facility] 03/06/2023 22:23:55 Past Encounters Encounter ID Performer Location Encounter Start Date Encounter Closed Date Diagnosis/Indication Diagnosis SNOMED-CT Code Diagnosis ICD10 Code Diagnosis IMO Codes Diagnosis Note [id number] DENAE Mcclelland [facility] [address], [address] [address] 10/12/2020 00:00:00 10/12/2020 16:51:52 [id number] DENAE Mcclelland [facility] Internal [facility] [address], [address] [address] 10/23/2020 00:00:00 10/23/2020 11:10:42 [id number] Roma quinones MD [facility] Internal [facility] [address], [address] [address] 06/24/2021 00:00:00 06/24/2021 12:00:26 [id number] Garth Brian DPM [facility] [place] [address] [facility] [address] [place] [address] 04/03/2023 13:41:51 04/03/2023 14:17:31 Ingrowing toenail 348523912 L60.0 medial border, bilateral great toenailsSl ant back procedure performed without incidentEd ucated on treatment optionsPat ient would like to return for an office procedure for partial matrixecto my both nail corners.Fo llow up for procedure [id number] Garth Brian DPM [facility] [place] [address] [facility] [address] [place] [address] 07/27/2023 14:08:01 08/23/2023 15:12:52 Ingrowing toenail [id number] L60.0 right great toenailpar tial matrix both corners performed today- right great toeconsent signeddres sing instructio rehana reviewedwo und care instructio rehana reviewedfo llow-up in 1 week left great toenail will be performed at a later date due to patient's request [id number] Roma quinones MD [facility] Internal Med [facility] [address] [facility], [facility] [address] [place] [address] 02/29/2024 14:27:57 02/29/2024 15:00:58 Screening for disorder 236020220 Z13.9 Anxiety 41611295 F41.9 [id number] Garth Brian DPM [facility] Podiat[facility] [place] [address] [place] [address] 02/29/2024 11:19:59 02/29/2024 13:29:06 Onychomycosis of toenails 927869620 B35.1 right great toenailapp ly ketoconazo le daily follow-up in 3 months if continues be problemati c we will schedule total nail avulsion Dystrophia unguium [address]97[address] 009 L60.3 [id number] Garth Brian DPM [facility] Podiatry [place] [address] [place] [address] 04/14/2025 11:04:45 04/15/2025 13:57:41 Onychomycosis of toenails 661767875 B35.1 bilateral great toenailsre turn for total nail avulsion proceduren ails debrided to remove acrylic [place] First trim dariel [id number] Z3A.01 [id number] Health Concerns Section Related Observation LastModified by Organization Detai ls LastModified Time None Recorded Concern Status LastModified by Organization Details LastModified Time None Recorded Advance Directives Directive N: Payers Insurance Date Sequence Insurance Name Policy Number Policy Bonner Covered Member ID Bonner Member ID Guarantor Name 04/14/2025 1 [place] [employer] Miryam R Pellazari [id number] Miryam R Pellazari 04/14/2025 [facility] (MEDICAID HMO) [id number] Miryam R Pellazari [id number] Miryam R Pellazari 05/03/2025 1 [facility] (MEDICAID HMO) [id number] Miryam R Pellazari [id number] Miryam R Pellazari 04/14/2025 [facility] Miryam R Pellazari SELF SELF Miryam R Pellazari 04/14/2025 1 [facility] (MEDICAID HMO) [id number] 0003 Miryam R Pellazari [id number] Miryam R Pellazari 12/26/2023 1 [facility] (PPO) [id number] Aurelio Salomon [id number] Miryam R Pellazari Notes Date Note Type [...] procedure. Patient denies any other complaints. Garth Brian, ALFREDO [address] [facility], [facility] [address], [place], [address], [facility] [place] [facility] 04/03/2023 14:16:59 07/27/2023 text/html Patient is here for toenail procedure.Patient denies any new pedal complaints.Patient denies any signs of infection to the toes.Patient understands all risks and benefits of the planned procedure and elects to continue. Garth Brian DPM [address], [place], [address], [employer] 08/06/2023 10:05:22 02/29/2024 text/html Miryam presents today to establish care. Patient states that she is having issues with her sertraline for anxiety and she states that she feels that her anxiety has worsened since starting it about 10 days ago. She has taken Lexapro in the past and it made her dizzy. Steff Harrell APRN [address], [place], [address], [employer] 03/04/2024 09:37:38 02/29/2024 text/html . Patient is [...] any redness or drainage. Garth Brian DPM [address], [place], [address], [employer] 02/29/2024 12:34:30 04/14/2025 text/html . Patient is a 24-year-old female she presents the office with complaints of thickened discolored great toenails. Patient states that she had acrylic put on her toenails and she is unable to get it off and would like to see if I could remove it. Patient denies any drainage or redness of the toes. Patient denies any fever, chills, nausea vomiting. Patient does have pain to palpation to the toenails. Garth Brian DPM [address], [place], [address], [employer] 04/14/2025 11:34:19 OBGyn Episode No OBEpisode recorded.
[2025-05-20 00:39] LABS: Add Urine Microscopic? YES; Appearance Urine Cloudy (Clear); Glucose Urine UA Negative (Negative); Leukocyte Esterase Ur Trace LEU/UL (Negative); Nitrate Urine Negative (Negative); Non Pathogenic Casts 0-2; Specific Grav Ur 1.013 (1.001-1.035)
--- NOTE | 2025-05-20 00:45 | OBADM ---
This patient, Miryam Hair, admitted to the OB room OB Post 115 for observation. Patient/family oriented to hospital policies and general routines including ID bracelet, bed and alarms, visiting hours, pain management, procedures, bathroom and other care routines, personal items, smoking policy, room service/diet, and visiting hours. Patient/Family are encouraged to report perceived risks to care and to ask questions if they do not understand what they are told or what they should do.
--- NOTE | 2025-05-20 01:04 | PC.NURSE ---
Called Dr. Parr, update on pt, reports of contractions and leaking, negative ROM plus, and no contractions in 45 minutes. Orders received to perform cervical exam and discharge pt if not dilated with instructions to call the office to make an appointment this week and when to return to the unit.
--- NOTE | 2025-05-20 01:35 | PC.NURSE ---
Pt discharged with instructions to call the office to make an appointment this week and when to return to the unit, pt verbalizes understanding.
[2025-05-20 01:42] LABS: OBXCEM ROM Plus Negative (Negative)
--- NOTE | 2025-06-15 13:16 | PM.OBTRLD ---
OB - Triage/Final Diagnosis Visit Information Comments/Additional reasons for admission: I have assessed the risk for this patient, Miryam Hair, and determined that she would benefit from observation care. Evaluation Laboratory results: Laboratory Tests 05/20/25 05/20/25 00:18 00:30 Urine Color Yellow Urine Appearance Cloudy H Urine pH 6.5 Ur Specific [place] 1.013 Urine Protein Negative Urine Glucose (UA) Negative Urine Ketones Negative Ur Blood (Man) Negative Urine Nitrate Negative Urine Bilirubin Negative Urine Urobilinogen 1.0 Leukocyte Esterase Rfl Trace H Urine RBC 0-2 Urine WBC 6-10 H Ur Squamous Epith Cells None seen Urine Bacteria None seen Urine Casts 0-2 Membranes Rupture Rom plus negative Final Diagnosis (1) False labor: Code(s): O47.9 - False labor, unspecified Status: Acute
== END 2025-05-20 01:35 | disposition home or self-care (01) ==
PROVIDERS: Admitting Provider Obstetrics & Gynecology; Visit Provider Obstetrics & Gynecology
DX: O47.9 False labor, unspecified (principal)
CPT/HCPCS: 81001; 84112; 87086; G0378; G0379

== ENCOUNTER 2025-06-15 20:26 | Observation (INO) | payer OTHER, SELFPAY ==
--- OUTSIDE RECORDS SUMMARY | 2025-06-15 20:43 | XMS_ITS | Clinical Summary ---
Author Organization [facility] [employer] Address [address] [place] [address] Care Team Providers Care Gang Saw Operator Name Role Phone Unavailable Primary Care Provider Unavailabl e Source Comments [facility] [employer],non-owned Affiliates and Associated Physician Practices is amultiple site organization consisting of ambulatory clinics and hospital sitesin [place] and [place]. This disclosure is being madepursuant to the Care Everywhere program and may not contain all information available regarding this patient. 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 Gender Identity Not on file Sexual Orientation [...] 12/15/2023 ZOSTER VACCINE (1 of 2) 2052 HIV SCREENING Completed 01/14/2025 HIB VACCINE Aged Out No longer eligi ble based on patient's age to complete this topic MENINGOCOCCAL GROUPS A/C/Y/W VACCINE Aged Out No longer eligible based on patient's age to complete this topic Procedures Procedure Name Priority Date/Time Associated Diagnosis Comments SONOGRAM - COMPLETE Routine 04/28/2025 1 0:32 AM CDT 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 Para 0 [id number] 1. live 2022. Gest. age 36 w [...] 1 lb 12 oz EFW by Hadlock ([id number]) appropriate Growth Overview Exam date [place] BPD [...] Heart / Thorax 4-chamber view. RVOT view. 4-yogvdi-rabucsm view. Situs. Bicaval view. Ductal arch view. [...] of with history of pre-term labor Procedures 09390: Preg Uterus Follow Up [facility] PACS Anatomical Region Laterality Modality Other 04/28/2025 10:3 2 AM CDT R Lexx Parr MD [facility] ORDERABLES Edited Result - Final from Last 3 Months Insurance [facility] * Guarantor: MIRYAM HAIR Account Type Relation to Patient Date of Phone Billing Address Personal/Family Other Advance Directives * Full Code (Latest Code Status on File) Date Activated Date Inactivated Comments 04/13/2015 9:18 PM 04/14/2015 4:19 PM
--- OUTSIDE RECORDS SUMMARY | 2025-06-15 20:43 | XMS_ITS | Data Portability ---
Author Organization [place] - [facility] [employer], Main Office Address [address] [place] [address] Assessment Encounter Date Assessment Date Assessment LastModified by Organization Details LastModified Time 07/27/2023 07/27/2023 This note is dictated and transcribed by [employer]. Folder Gluer Operator variances may occur. Despite proofreading, typographical errors may occur. Occasional wrong-word or 'ckqhw-n-uzlj' substitutions may have occurred due to the inherent limitations of voice recording. Read the chart carefully and recognize, using context, where substitutions have occurred. Not available 08/06/2023 10:04:25 02/29/2024 02/29/2024 This note is dictated and transcribed by [employer]. Folder Gluer Operator variances may occur. Despite proofreading, typographical errors may occur. Occasional wrong-word or 'sfosv-r-jxxk' substitutions may have occurred due to the inherent limitations of voice recording. Read the chart carefully and recognize, using context, where substitutions have occurred. Not available 02/29/2024 12:09:10 04/14/2025 04/14/2025 This note is dictated and transcribed by [employer]. Folder Gluer Operator variances may occur. Despite proofreading, typographical errors may occur. Occasional wrong-word or 'fxgen-p-pfmh' substitutions may have occurred due to the inherent limitations of voice recording. Read the chart carefully and recognize, using context, where substitutions have occurred. Not available 04/14/2025 11:32:54 Plan of Treatment Reminders Order Date Submit Date Provider Last Modified By Organization Details Last Modified Time Details Appointments None recorded. Lab CT + NG + TV, DNA, urine/swab 2023 024 [facility] Out[facility], [address] [place], [address], 4 09:48:02 hepatitis C virus Ab, serum 2023 [facility], [address] [place], [address], 4 09:48:02 CMP, serum or plasma 2023 [facility] Lab, [address] [place], [address], 4 11:22:46 CBC w/ auto diff 2023 [facility], [address] [place], [address], 4 09:48:03 vitamin D, 25-hydroxy , total, serum 2023 [facility], [address] [place], [address], 4 09:48:03 HbA1c (hemoglobi n A1c), blood 2023 [facility], [address] [place], [address], 4 09:48:03 lipid panel, serum 2023 [facility], [address] [place], [address], 4 09:48:03 iron + TIBC + ferritin, serum 2023 [facility], [address] [place], [address], 4 09:48:03 TSH + free T4, serum 2023 [facility], [address] [facility], [place], [address], 4 09:48:03 Referral psychiatri referral - History of depression 2023 024 [email or web address] 2 Stacey Elizalde Pmhnp, [address] [facility] [address] [address], [place], [address], 5 12:43:17 Procedures None recorded. Surgeries None recorded. Imaging None recorded. Medication Orders bupropion HCl XL 150 mg 24 hr tablet, extended release 2023 024 [facility]/Pharmacy #[id number], [address], [place], [address], 4 14:57:27 ketoconazo le 2 % topical cream 2023 [facility]/Pharmacy #[id number], [address], [place], [address], 4 12:09:33 Patient TargetsNo targets recorded. Patient Instructions Encounter Date Encounter Id Patient Instructions Last Modified By Organization Details Last Modified Time 07/27/2023 [id number] paronychia: care instructions Not available 07/27/2023 15:47:03 [...] nearest ER. Not available 08/06/2023 10:05:04 02/29/2024 [id number] Follow up in 6 months Obtain labs Prescription sent to pharmacy [email or web address] Not available 02/29/2024 14:56:05 Reason for Referral Psychiatrist Referral for An xiety History of depression Referring Physician: tSeff Harrell, Internal Medicine, Encounter Date: 02/29/2024 Results Created Date Observation Date Name Description Value Unit Range Abnormal Flag Note LastModifiedBy Organization Detail LastModifiedTime Result Notes None recorded. Problems Name Problem SNOMED Code Status Onset Date Resolution Date Notes Provider Name and Address Organization Details Recorded Time Closed fracture of shaft of radius 8012114 Active Not Available [facility] 3 05:11:17 Cyst of ovary 29959261 Active Steff Harrell APRN [address], [address], [place], [address] , [employer] 4 13:54:16 Allergic contact dermatitis 203409404 Active Steff Harrell APRN [address], [address], [place], [address] , [employer] 4 20:02:14 Urinary tract infectious disease 24687335 Active 2021 Not Available [facility] 3 05:11:17 Acute sinusitis 66880727 Active 2021 Not Available [facility] 3 05:11:17 Migraine 39286091 Active 2022 Steff Harrell APRN [address], [address], [place], [address] , [employer] 4 13:53:39 Ingrowing toenail 224870992 Active 2022 Garth Brian DPM [address], [address], [place], [address] , [employer] 3 14:16:15 Onychomycosis of toenails 910247813 Active 2023 Garth Brian DPM [address], [address], [place], [address] , [employer] 4 12:09:01 Dystrophia unguium 60434237 Active 2023 Garth Brian DPM [address], [address], [place], [address] , [employer] 4 12:09:05 Anxiety 78953964 Active 2023 Steff Harrell APRN [address], [address], [place], [address] , [employer] 4 14:47:53 Depressive disorder 28424668 Active 2023 Steff Harrell APRN [address], [address], [place], [address] , [employer] [facility] [employer] 4 14:48:06 Intrauterine contraceptive device in situ 377657134 Active 2023 Steff Harrell APRN [address], [address], [place], [address] , [employer] 4 14:57:10 First trimester 95114417 Active 2024 Garth Brian DPM [address], [address], [place], [address] , [employer] [facility] [employer] 5 11:33:07 Notes:FEMALE PROBLEMS/INFECT IONS Problem Notes None recorded. Procedures Surgical History Date Name Laterality Status Provider Name and Address Organization Details Recorded Time 04/14/20 25 Nail Debridement completed Garth Brian DPM [address], [address], [place], [address], [employer] 04/14/2025 11:33:43 02/29/20 24 Nail Debridement completed Garth Brian DPM [address], [address], [place], [address], [employer] 02/29/2024 12:33:56 07/27/20 23 Blank Procedure Note completed Garth Brian DPM [address], [address], [place], [address], [employer] 07/27/2023 15:46:29 04/03/20 23 Nail Debridement completed Garth Brian DPM [address], [address], [place], [address], [employer] [facility] [employer] 04/03/2023 14:14:45 09/04/19 21 tonsilectomy/tristen noids completed Not Available [facility] 10/05/2022 05:05:00 08/07/19 21 Removal of ovarian cyst(s) completed Not Available [facility] 10/05/2022 05:05:00 tympanostomy completed Not Available [facility] 10/05/2022 05:05:00 Imaging Results None recorded. Procedure Notes None recorded. Medical Equipment None Reported. Allergies Allergen ID Allergen Name Allergen Category Reaction Reaction Severity Criticality Documentation Date Start Date Code Code System Note Provider Name and Address Organization Details Recorded Time 06745 No known allergy (situatio n) Not available Not available Not available Not available 02/22/2024 76525 6003 SNOMED Steffmichell Harrell, [employer] [address] [facility], [address], [place], [address], [facility] [employer] 13:54:25 No known drug allergies Medications Name [...] Details Last Updated DateTime 4 20.5 kg/m2 21433.9 7 g 62 /min 97.3 [degF] 14 /min 98 % 98 % 110/70 mm[Hg] Darlene Almanza [facility] [place] [employer] [facility] 4 11:30:46 Date Recorded Body height Provider Name an d Address Organization Details Last Updated DateTime 02/29/2024 172.72 cm Daly Canseco MA [facility] [place] [employer] 02/29/2024 11:28:37 Date Recorded Body height Body mass index (BMI) Body weight Body temperature Heart rate Oxygen saturation Oxygen saturation in Arterial blood by Pulse oximetry Systolic And Diastolic Provider Name and Address Organization Details Last Updated DateTime 4 172.72 cm 21.1 kg/m2 07127.3 4 g 98.3 [degF] 75 /min 98 % 98 % 108/60 mm[Hg] [place] [facility] [place] [employer] [facility] 4 14:39:02 Date Recorded Body height Body mass index (BMI) Body mass index (BMI) [Percentile] Per age and sex Body weight Provider Name and Address Organization Details Last Updated DateTime 04/03/2023 172.72 cm 20.5 kg/m2 34 % 52280.97 g Kathy Weldon [facility] [employer] [facility] 04/03/2023 14:00:52 Date Recorded Heart rate Respiratory rate Oxygen saturation Oxygen saturation in Arterial blood by Pulse oximetry Systolic And Diastolic Provider Name and Address Organization Details Last Updated DateTime 3 60 /min 14 /min 99 % 99 % 141/94 mm[Hg] Rani Barraza [facility] [employer] [facility] 3 13:58:40 Date Recorded Heart rate Oxygen saturation Oxygen saturation in Arterial blood by Pulse oximetry Body temperature Systolic And Diastolic Provider Name and Address Organization Details Last Updated DateTime 5 71 /min 97 % 97 % 97.5 [degF] 106/82 mm[Hg] Tevin Proctor Rob [facility] [employer] [facility] 5 11:10:56 Date Recorded Body height Body mass index (BMI) Body weight Provider Name and Address Organization Details Last Updated DateTime 04/14/2025 172.72 cm 20.5 kg/m2 49545.97 g Rani Barraza [facility] [employer] [facility] 04/14/2025 11:08:05 Social History Question Answer Notes LastModified by Organizat ion Details LastModified Time Tobacco Smoking Status Never Smoker Not Available [facility] 10/05/2022 05:03:55 Do You Have An Advance Directive? No [id number] Information not available 10/05/2022 What Is Your Level Of Caffeine Consumption? Heavy MIGRATION.458533 4594 Information not available 10/05/2022 How Much Tobacco Do You Chew? None MIGRATION.[id number] 5555 Information not available 10/05/2022 In The 14 Days Before Symptom Onset, Have You Had Close Contact With A Laboratory-confirm ed COVID-19 While That Case Was Ill? No [id number].[id number] Information not available 10/05/2022 In The 14 Days Before Symptom Onset, Have You Had Close Contact With A Person Who Is Under Investigation For COVID-19 While That Person Was Ill? No MIGRATION.[id number] 1424 Information not available 10/05/2022 What Type Of Diet Are You Following? REGULAR MIGRATION.[id number] 3731 Information not available 10/05/2022 Which Illicit Or Recreational Drugs Have You Used? None MIGRATION.048609 0133 Information not available 10/05/2022 Have There Been Any Changes To Your Family Or Social Situation? No Information no t available 02/29/2024 Are There Any Guns Present In Your Home? No MIGRATION.[id number] Information not available 10/05/2022 Do You Use [...] How Much Tobacco Do You Smoke? No MIGRATION.[id number] 6205 Information not available 10/05/2022 Do You Use Sunscreen Routinely? Yes MIGRATION.[id number] 5279 Information not available 10/05/2022 How Many Years Have You Smoked Tobacco? 0 MIGRATION.430959 0412 Information not available 10/05/2022 Have You Recently [...] used smokeless tobacco? Never used smokeless tobacco MIGRATION.192025 4175 Information not available 10/05/2022 Are you currently employed? Yes Information not available 02/29/2024 What is your occupation? [employer] MIGRATION.538227 2325 Information not available 10/05/2022 Do you or have you ever used e-cigarettes or vape? Current user of electronic cigarettes Information not available 02/29/2024 What is your exercise level? Moderate Information not available 02/29/2024 Mental Status Question Answer Note LastModified by Organization D etails LastModified Time Do you feel stressed (tense, restless, nervous, or anxious, or unable to sleep at night)? [id number] Information not available 02/29/2024 Family History Relationship Description Onset Age of this Age Resolved Age Notes LastModified by Organization Details LastModified Time Mother Diabetes mellitus [id number] Not available 10/05/2022 05:05:06 Mother Lupus erythematosu s [id number].[id number] Not available 10/05/2022 05:05:06 Father Diabetes mellitus [...] HAVE YOU BEEN HOSPITALIZED OR SEEN IN [facility] IN THE PAST YEAR ? N ATHEROSCLEROSIS [...] preservative 8 completed Steff Harrell APRN [address] [facility] [address], [place], [address], [employer] [facility] [employer] [facility] 02/29/2024 14:47:12 Hib, unspecified formulation 3 completed Steff Harrell APRN [address], [facility] [address], [place], [address], [facility] [address] [facility] [place] [employer] [facility] 02/29/2024 14:47:12 Hib, unspecified formulation 3 completed Steff Harrell APRN [address], [address], [place], [address], [facility] [address] [facility] [employer] [facility] 02/29/2024 14:47:12 Hib, unspecified formulation 4 completed Steff Harrell APRN [address], [address], [place], [address], [facility] [address] [facility] [employer] [facility] 02/29/2024 14:47:12 Hib, unspecified formulation 3 completed Steff Harrell APRN [address], [address], [place], [address], [facility] [address] [facility] [employer] [facility] 02/29/2024 14:47:12 HPV9 9 completed Steff Harrell APRN [address], [address], [place], [address], [facility] [address] [facility] [employer] [facility] 02/29/2024 14:47:12 IPV 3 completed Steff Harrell APRN [address], [address], [place], [address], [employer] [facility] [employer] [facility] 02/29/2024 14:47:12 IPV 7 completed Steff Harrell APRN [address], [address], [place], [address], [facility] [address] [facility] [employer] [facility] 02/29/2024 14:47:12 IPV 3 completed Steff Harrell APRN [address], [address], [place], [address], [facility] [address] [facility] [employer] [facility] 02/29/2024 14:47:12 IPV 4 completed Steff Harrell APRN [address], [address], [place], [address], [facility] [address] [facility] [employer] [facility] 02/29/2024 14:47:12 Influenza, MDCK, quadrivalent, PF 3 completed Steff Harrell APRN [address], [address], [place], [address], [facility] [employer] [facility] 02/29/2024 14:47:12 Influenza, live, trivalent, intranasal, PF 2 completed Steff Harrell APRN [address], [address], [place], [address], [facility] [employer] [facility] 02/29/2024 14:47:12 Influenza, live, trivalent, intranasal, PF 3 completed Steff Harrell APRN [address], [address], [place], [address], [facility] [employer] [facility] 02/29/2024 14:47:12 MMR 8 completed Steff Harrell APRN [address], [address], [place], [address], [facility] [employer] [facility] 02/29/2024 14:47:12 MMR [address], [place], [address], [facility] [employer] [facility] 02/29/2024 14:47:12 COVID-19, mRNA, LNP-S, PF, 30 mcg/0.3 mL dose, pema-sucrose 2 completed Steff Harrell APRN [address], [address], [place], [address], [facility] [employer] [facility] 02/29/2024 14:47:12 COVID-19, mRNA, LNP-S, bivalent, PF, 30 mcg/0.3 mL dose 3 completed Steff Harrell APRN [address], [address], [place], [address], [facility] [employer] [facility] 02/29/2024 14:47:12 pneumococcal conjugate PCV 7 [address], [address], [place], [address], [facility] [employer] [facility] 02/29/2024 14:47:12 pneumococcal conjugate PCV 7 [address], [place], [address], [employer] [facility] 02/29/2024 14:47:12 pneumococcal conjugate PCV 7 3 completed Steff Harrell APRN [address], [address], [place], [address], [place] [facility] [employer] [facility] 02/29/2024 14:47:12 influenza, unspecified formulation 3 completed Steff Harrell APRN [address], [address], [place], [address], [employer] [facility] 02/29/2024 14:47:12 influenza, unspecified formulation 6 completed Steff Harrell APRN [address], [address], [place], [address], [employer] [facility] 02/29/2024 14:47:12 influenza, unspecified formulation [address], [address], [place], [address], [employer] [facility] 02/29/2024 14:47:12 influenza, unspecified formulation 5 completed Steff Harrell APRN [address], [address], [place], [address], [employer] [facility] 02/29/2024 14:47:12 Tdap [address], [address], [place], [address], [employer] [facility] 02/29/2024 14:47:12 Tdap 4 completed [address], [address], [place], [address], [employer] [facility] 02/29/2024 14:47:12 varicella [address], [place], [address], [employer] [facility] 02/29/2024 14:47:12 varicella 8 completed Steff Harrell APRN [address], [address], [place], [address], [employer] [facility] 02/29/2024 14:47:12 influenza, split (incl. purified surface antigen) 8 completed Steff Harrell APRN [address], [address], [place], [address], [employer] [facility] 02/29/2024 14:47:12 HPV, quadrivalent 4 completed Steff Harrell APRN [address], [address], [place], [address], [employer] [facility] 02/29/2024 14:47:12 Hep B, adolescent or pediatric 3 completed Steff Harrell APRN [address], [address], [place], [address], [employer] [facility] 02/29/2024 14:47:12 Hep B, adolescent or pediatric 3 completed Steff Harrell APRN [address], [address], [place], [address], [employer] [facility] 02/29/2024 14:47:12 Hep B, adolescent or pediatric 3 completed Steff Harrell APRN [address], [address], [place], [address], [employer] [facility] 02/29/2024 14:47:12 Hep B, adolescent or pediatric 3 completed Steff Harrell APRN [address], [address], [place], [address], [employer] [facility] 02/29/2024 14:47:12 Hep A, pediatric, unspecified formulation 6 completed Steff Harrell APRN [address], [address], [place], [address], [employer] [facility] 02/29/2024 14:47:12 Hep A, pediatric, unspecified formulation 5 completed Steff Harrell APRN [address], [address], [place], [address], [employer] [facility] [employer] [facility] 02/29/2024 14:47:12 meningococcal MCV4P 2 completed Steff Harrell APRN [address], [address], [place], [address], [place] - [facility] [employer] [facility] 02/29/2024 14:47:12 meningococcal MCV4P 4 completed Steff Harrell APRN [address], [address], [place], [address], [employer] [facility] [employer] [facility] 02/29/2024 14:47:12 DTaP 3 completed Steff Harrell APRN [address], [address], [place], [address], [employer] [facility] [employer] [facility] 02/29/2024 14:47:12 DTaP 7 completed Steff Harrell APRN [address], [address], [place], [address], [employer] [facility] [employer] [facility] 02/29/2024 14:47:12 DTaP 3 completed Steff Harrell APRN [address], [address], [place], [address], [employer] [facility] [employer] [facility] 02/29/2024 14:47:12 DTaP 4 completed Steff Harrell APRN [address], [address], [place], [address], [employer] [facility] 02/29/2024 14:47:12 DTaP 3 completed Steff Harrell APRN [address], [address], [place], [address], [employer] [facility] [employer] [facility] 02/29/2024 14:47:12 Influenza, live, quadrivalent, intranasal 4 completed Steff Harrell APRN [address], [address], [place], [address], [employer] [facility] [employer] [facility] 02/29/2024 14:47:12 Influenza, split virus, quadrivalent, PF 0 completed Steff Harrell, [employer] [address], [address], [place], [address], [facility] [employer] [facility] 02/29/2024 14:47:12 Influenza, split virus, quadrivalent, PF 6 completed Steff Harrell APRN [address], [place], [address], [facility] [employer] [facility] 02/29/2024 14:47:12 Influenza, split virus, quadrivalent, preservative 0 completed Steff Harrell APRN [address], [place], [address], [facility] [employer] [facility] 02/29/2024 14:47:11 Influenza, split virus, quadrivalent, preservative 9 completed Not Available [facility] 03/06/2023 22:23:55 Past Encounters Encounter ID Performer Location Encounter Start Date Encounter Closed Date Diagnosis/Indication Diagnosis SNOMED-CT Code Diagnosis ICD10 Code Diagnosis IMO Codes Diagnosis Note [id number] DENAE Mcclelland [facility] Internal Med [facility] [address] [place] [place] [address], [address] [address] 10/12/2020 00:00:00 10/12/2020 16:51:52 [id number] DENAE Mcclelland [facility] Internal [facility] [address] [place] [address], [address] [address] 10/23/2020 00:00:00 10/23/2020 11:10:42 [id number] Roma quinones MD [facility] Internal Med [facility] [address] [place] [address], [address] [address] 06/24/2021 00:00:00 06/24/2021 12:00:26 [id number] Garth Brian DPM [facility] [place] [address] [facility] [address] [place] [address] 04/03/2023 13:41:51 04/03/2023 14:17:31 Ingrowing toenail 139119581 L60.0 medial border, bilateral great toenailsSl ant back procedure performed without incidentEd ucated on treatment optionsPat ient would like to return for an office procedure for partial matrixecto my both nail corners.Fo llow up for procedure [id number] Garth Brian DPM [facility] [place] [address] [facility] [address] [place] [address] 07/27/2023 14:08:01 08/23/2023 15:12:52 Ingrowing toenail 643020153 L60.0 right great toenailpar tial matrix both corners performed today- right great toeconsent signeddres sing instructio rehana reviewedwo und care instructio rehana reviewedfo llow-up in 1 week left great toenail will be performed at a later date due to patient's request [id number] Roma quinones MD [facility] [address] [facility], [facility] [address] [place] [address] 02/29/2024 14:27:57 02/29/2024 15:00:58 Screening for disorder 055403184 Z13.9 Anxiety 88935684 F41.[id number] [facility] Podiatry [place] [address] [place] [address] 02/29/2024 11:19:59 02/29/2024 13:29:06 Onychomycosis of toenails 100267358 B35.1 right great toenailapp ly ketoconazo le daily follow-up in 3 months if continues be problemati c we will schedule total nail avulsion Dystrophia unguium [id number] L60.[id number] [facility] Pod[facility] [place] [address] [place] [address] 04/14/2025 11:04:45 04/15/2025 13:57:41 Onychomycosis of toenails [id number] B35.1 bilateral great toenailsre turn for total nail avulsion proceduren ails debrided to remove acrylic [place] First trim dariel [id number] [id number].01 [id number] Health Concerns Section Related Observation LastModified by Organization Detai ls LastModified Time None Recorded Concern Status LastModified by Organization Details LastModified Time None Recorded Advance Directives Directive N: Payers Insurance Date Sequence Insurance Name Policy Number Policy Bonner Covered Member ID Bonner Member ID Guarantor Name 04/14/2025 1 [place] Miryam R Pellazari [id number] Miryam R Pellazari 04/14/2025 [facility] (MEDICAID HMO) [id number] Miryam R Pellazari [id number] Miryam R Pellazari 05/03/2025 1 [facility] (MEDICAID HMO) [id number] Miryam R Pellazari [id number] Miryam R Pellazari 04/14/2025 [facility] Miryam R Pellazari SELF SELF Miryam R Pellazari 04/14/2025 1 [facility] (MEDICAID HMO) [id number] Miryam R Pellazari [id number] Miryam R Pellazari 12/26/2023 1 [facility] (PPO) [id number] Aurelio Salomon [id number] Miryam R Pellazari Notes Date Note [...] any other complaints. Garth Brian, ALFREDO [address] [facility], [facility] [address], [place], [address], [facility] [employer] [facility] 04/03/2023 14:16:59 07/27/2023 text/html Patient is here for toenail procedure.Patient denies any new pedal complaints.Patient denies any signs of infection to the toes.Patient understands all risks and benefits of the planned procedure and elects to continue. Garth Brian DPM [address], [place], [address], [facility] [facility] 08/06/2023 10:05:22 02/29/2024 text/html Miryam presents today to establish care. Patient states that she is having issues with her sertraline for anxiety and she states that she feels that her anxiety has worsened since starting it about 10 days ago. She has taken Lexapro in the past and it made her dizzy. Steff Harrell APRN [address], [place], [address], [facility] 03/04/2024 09:37:38 02/29/2024 text/html . Patient is [...] Brian DPM [address], [place], [address], [facility] [facility] 02/29/2024 12:34:30 04/14/2025 text/html . Patient is [...] Brian DPM [address], [place], [address], [facility] 04/14/2025 11:34:19 OBGyn Episode No OBEpisode recorded.
[2025-06-15 21:01] VITALS: BP 119/82; PULSE 74
[2025-06-15 21:15] VITALS: BP 115/71; PULSE 74
[2025-06-15 21:15] LABS: Add Urine Microscopic? YES; Appearance Urine Clear (Clear); Glucose Urine UA Negative (Negative); Leukocyte Esterase Ur Trace LEU/UL (Negative); Nitrate Urine Negative (Negative); Non Pathogenic Casts 0-2; Specific Grav Ur 1.007 (1.001-1.035)
[2025-06-15 21:30] VITALS: BP 119/73; PULSE 74
[2025-06-15 21:45] VITALS: BP 119/67; PULSE 72
[2025-06-15 22:00] VITALS: BP 118/69; PULSE 77
[2025-06-15 22:12] VITALS: BMI 23.4
--- NOTE | 2025-06-17 11:00 | P.PNOB_ITS ---
OB - Triage/Final Diagnosis Visit Information Date of evaluation: 06/15/25 Reason for evaluation: threatened labor Comments/Additional reasons for admission: I have assessed the risk for this patient, Miryam Hair, and determined that she would benefit from observation care. Evaluation Laboratory results: Laboratory Tests 06/15/25 20:54 Urine Color Yellow Urine Appearance Clear Urine pH 7.0 Ur Specific [place] 1.007 Urine Protein Negative Urine Glucose (UA) Negative Urine Ketones Negative Ur Blood (Man) Negative Urine Nitrate Negative Urine Bilirubin Negative Urine Urobilinogen 1.0 Leukocyte Esterase Rfl Trace H Urine RBC 0-2 Urine WBC 0-5 Ur Squamous Epith Cells None seen Urine Bacteria None seen Urine Casts 0-2
== END 2025-06-15 22:30 | disposition home or self-care (01) ==
PROVIDERS: Advanced Practice Midwife; Admitting Provider Obstetrics & Gynecology; Visit Provider Obstetrics & Gynecology
DX: O47.03 False labor before 37 completed weeks of gestation, third trimester (principal); Z3A.31 31 weeks gestation of pregnancy
CPT/HCPCS: 81001; A9270; G0378; G0379

== ENCOUNTER 2025-07-07 12:01 | Outpatient (RCR) | payer OTHER, SELFPAY ==
[2025-07-07 13:11] VITALS: PULSE 94
== END 2025-07-26 11:34 | disposition other institution (70) ==
LOC: ANHOBOP 12:01
PROVIDERS: Visit Provider Advanced Practice Midwife
DX: O36.8190 Decreased fetal movements, unspecified trimester, not applicable or unspecified (principal)
CPT/HCPCS: 59025

== ENCOUNTER 2025-07-17 16:29 | Observation (INO) | payer OTHER, SELFPAY ==
[2025-07-17 18:47] VITALS: BMI 25.1
--- NOTE | 2025-07-17 18:47 | OBADM ---
This patient, Miryam Hair, admitted to the OB room Labor/Delivery/Recovery 106 for observation. Patient/family oriented to hospital policies and general routines including ID bracelet, bed and alarms, visiting hours, pain management, procedures, bathroom and other care routines, personal items, smoking policy, room service/diet, and visiting hours. Patient/Family are encouraged to report perceived risks to care and to ask questions if they do not understand what they are told or what they should do.
--- NOTE | 2025-07-17 19:27 | PC.NURSE ---
1900- RN at bedside discussing plan of care with patient. RN discussing discharge instructions and orders per Dr. Parr with patient. RN educated patient on when to return to hospital. Patient agrees with plan of care and verbalizes understanding of d/c instructions.
--- OUTSIDE RECORDS SUMMARY | 2025-07-17 19:38 | XMS_ITS | Clinical Summary ---
Author Organization [facility] Address [address] [place] [address] Care Team Providers Care Care Navigator Name Role Phone Unavailable Primary Care Provider Unavailabl e Source Comments [facility],non-owned Affiliates and Associated Physician Practices is amultiple site organization consisting of ambulatory clinics and hospital sitesin [place], [place], [place] and [place]. This disclosure is being madepursuant to the Care Everywhere program and may not contain all information available regarding this patient. Last updated 18.[facility] Allergies Active Allergy Reactions Criticality Noted Date [...] - 04/28/2025 11:59 PM CDT Hospital Encounter [facility] [address] [place], [place] [id number] Akiko Dinero MD Discharge Disposition: Home or [...] on file Legal Sex Female 5:42 AM ADULT PSYCHIATRIST Gender Identity Not on file Sexual Orientation [...] DEPRESSION SCREENING 08/07/2024 COVID-19 VACCINE (3 - 2024- season) 2025 12/25/2022, 09/30/2021 INFLUENZA VACCINE (#1) 2025 , 05/11/2020, 05/18/2019, Additional history exists OB-ONE HOUR GLUCOSE 05/06/2025 OB-TDAP CURRENT 05/13/2025 12/19/2021, OB-RHOGAM INJECTION 05/20/2025 Respiratory Syncytial Virus (RSV) Vaccine Pt: or over 60 yrs (1 - Risk 1-dose series) 06/17/2025 OB-GROUP B STREP SCREEN 07/08/2025 CHLAMYDIA/GONORRHEA SCREENING 02/26/2026 02/26/2025, 01/14/2025, 12/15/2023 ZOSTER [...] synechiae Encounter for anatomic survey ([facility]) History of delivery, currently ([facility]) from Last 3 Months Results * Sonogram - Complete (04/28/2025 10:32 AM CDT) Linked Results Indication ======== Incomplete anatomy 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 Para 0 [id number] 1. live 2022. Gest. age 36 w [...] 1 lb 12 oz EFW by Hadlock ([id number]) appropriate Growth Overview Exam date GA BPD [...] Heart / Thorax 4-chamber view. RVOT view. 1-afjwqe-jtpckzl view. Situs. Bicaval view. Ductal arch view. [...] of with history of pre-term labor Procedures 74959: US Preg Uterus Follow Up minicabit PACS Anatomical Region Laterality Modality Other 04/28/2025 10:3 2 AM CDT R Lexx Parr MD [facility] ORDERABLES Edited Result - Final from Last 3 Months Insurance [facility] * Guarantor: MIRYAM HAIR Account Type Relation to Patient Date of Phone Billing Address Personal/Family Other Advance Directives * Full Code (Latest Code Status on File) Date Activated Date Inactivated Comments 04/13/2015 9:18 PM 04/14/2015 4:19 PM
--- NOTE | 2025-08-17 20:58 | PM.OBTRLD ---
OB - Triage/Final Diagnosis Visit Information Comments/Additional reasons for admission: I have assessed the risk for this patient, Miryam Hair, and determined that she would benefit from observation care. Final Diagnosis (1) False labor: Code(s): O47.9 - False labor, unspecified Status: Acute
== END 2025-07-17 19:10 | disposition home or self-care (01) ==
PROVIDERS: Admitting Provider Obstetrics & Gynecology; PCP Internal Medicine; Referring Provider Advanced Practice Midwife; Visit Provider Obstetrics & Gynecology
DX: O47.03 False labor before 37 completed weeks of gestation, third trimester (principal); Z3A.36 36 weeks gestation of pregnancy
CPT/HCPCS: G0378; G0379

== ENCOUNTER 2025-07-20 05:42 | Inpatient (IN) | payer OTHER, SELFPAY ==
[2025-07-20] VITALS (38 sets, daily range): BP systolic 95–138; BP diastolic 60–94; PULSE 74–145; RESP 18; TEMP 36.6–36.8; O2SAT 96–100; BMI 25.1
[2025-07-20 09:18] LABS: Hematocrit 36.2 % (37.0-47.0); Hemoglobin 11.9 g/dL (12.0-15.0); Immature Granulocyte Percent A 1.1 % (0-0.5); Lymphocytes Absolute Auto 1.90 K/mm3 (0.9-3.2); Mean Corpuscular HGB Conc 32.9 g/dl (32-36); Mean Corpuscular Hemoglobin 27.5 pg (26-34); Mean Corpuscular Volume 83.6 fl (80-100); Nucleated Red Blood Cells Absolute Auto 0.000 K/mm3 (0.0-0.012); Nucleated Red Blood Cells Perc 0.0 % (0.0-0.2); Platelet Count Result 197 k/mm3 (150-375); Red Blood Count 4.33 M/mm3 (4.2-5.4); White Blood Count 14.2 K/mm3 (4.5-10.0)
--- NOTE | 2025-07-20 09:18 | LDADM ---
This patient, Miryam Hair, was admitted to Labor/Delivery/Recovery 105 on 07/20/25 at 05:42. Plans for labor, pain management and were discussed with patient. Patient/family oriented to hospital policies and general routines including ID bracelet, bed and alarms, visiting hours, pain management, procedures, bathroom and other care routines, personal items, smoking policy, room service/diet and guest tray routines, infant security routines, and visiting hours. Patient/Family are encouraged to report perceived risks to care and to ask questions if they do not understand what they are told or what they should do. See OBIX for further documentation.
[2025-07-20 10:06] LABS: OBXCEM ROM Plus Negative (Negative)
[2025-07-20 10:09] LABS: Syphilis IgG/IgM Antibody Non-Reactive (Nonreactive)
--- NOTE | 2025-07-20 11:58 | WPDOBADMIT ---
Obstetrics - Admit Note Admission Note: record reviewed. No pertinent additions to the history and/or any subsequent changes in the physical findings that are not consistent with the expected course of the were found. Additions to the history and/or subsequent changes in the physical findings follow. Admit, early labor, plan to monitor, dr. sapp notified
[2025-07-20] MEDS: LACTATED RINGERS 1,000 ML 125 ML IV CONT ×2 (14:08→14:35)
[2025-07-20] MEDS: fentaNYL CITRATE INJ (*CRX) 100 MCG/2 ML VIAL IV PUSH (14:11)
--- NOTE | 2025-07-20 14:36 | WPDANESEPP ---
Anes - Eval Pre Procedure Procedure: labor pain management Date/Time: 07/20/25 14:36 Surgeon: Keshav Preop Diagnosis: pain during labor Pre Op Diagnosis: Contractions Patient Data Age: 24 Gender: F Height: 1.73 m Weight: 75 kg Last Vital Signs Pulse 91 07/20/25 14:00 BP 125/75 07/20/25 14:00 O2 Del Method Room Air 07/20/25 10:00 Allergies Allergy/AdvReac Type Severity Reaction Status Date / Time metoclopramide (From Reglan) Allergy Anxiety Verified 07/20/25 09:19 attack Home Medications ?Medication ?Instructions ?Recorded ?Confirmed ?Type ondansetron 4 mg disintegrating 4 mg PO Q6H PRN nausea and vomiting 05/20/25 07/20/25 History tablet vit no.95-ferrous 1 tablet PO DAILY 07/14/25 07/20/25 History fumarate 28 mg-folic acid 800 mcg tablet () Laboratory Tests 07/20/25 07/20/25 06:43 08:51 WBC 14.2 H K/mm3 (4.5-10.0) RBC 4.33 M/mm3 (4.2-5.4) Hgb 11.9 L g/dL (12.0-15.0) Hct 36.2 L % (37.0-47.0) MCV 83.6 fl (80-100) MCH 27.5 pg (26-34) MCHC 32.9 g/dl (32-36) RDW 14.5 % (11.5-14.5) Plt Count 197 k/mm3 (150-375) MPV 12.4 H fl (7.4-10.4) Immature Gran % (Auto) 1.1 H % (0-0.5) Neut % (Auto) 79.1 H % (45.5-73.1) Lymph % (Auto) 13.4 L % (18.3-44.2) [place] % (Auto) 6.1 % (2.6-8.5) Eos % (Auto) 0.1 % (0-4.4) Baso % (Auto) 0.2 % (0.2-1.2) Lymph # (Auto) 1.90 K/mm3 (0.9-3.2) [place] # (Auto) 0.9 H K/mm3 (0.1-0.6) Eos # (Auto) 0.0 K/mm3 (0-0.3) Baso # (Auto) 0.0 K/mm3 (0.0-0.1) Abs Immat Gran (auto) 0.16 H K/mm3 (0.00-0.031) Absolute Neuts (auto) 11.2 H K/mm3 (1.3-6.7) Absolute Nucleated RBC 0.000 K/mm3 (0.0-0.012) Nucleated RBC % 0.0 % (0.0-0.2) Membranes Rupture Rom plus negative (Negative) Syphilis IgG/IgM Ab Non-reactive (Nonreactive) Blood Type A Positive Antibody Screen Negative Patient hx anesthesia problems: none Family hx anesthesia problems: none Results Review: All pre-operative results and documents have been reviewed as part of the pre-operative evaluation. [facility] Past Medical History Medical History Endometriosis Surgical History Surgical History H/O ovarian cystectomy S/P laparoscopic procedure Family History Family History Other Diabetes mellitus Social History Social History Smoking status: Current every day smoker Tobacco type: e-cigarettes/vaping Second hand tobacco smoke exposure: Yes Additional smoking assessment comments: PT STATES ANN BEEN VAPING FOR SEVERAL YEARS NOW. Alcohol intake: never Substance use: never Substance use type: does not use Lack of Transportation: No Lack of Food: Never True Current Housing: I Have Housing Concerned About Future Housing: No Difficulty Paying Gas/Electric Bills: No Difficulty Paying for Meds: No Currently Unemployed: No Education: High School Diploma/GED Difficulty w/ Childcare or Family Care: No Living arrangements: with family Gender identity (if verbalized by the patient): Female Spiritual care concerns: No Exam Day of Procedure 07/20/25 14:36
[2025-07-20] MEDS: OXYTOCIN 30 UNITS/NS 500 ML 30 UNITS/500 ML BAG 999 UNITS IV CONT (15:04)
--- NOTE | 2025-07-20 15:13 | PM.OBPRVD ---
OB - Vaginal Delivery Note Procedure Delivery date: 07/20/25 Delivery monitor: External FHT and External Uterine Route of delivery: Episiotomy description: None Laceration Description: None Specimen: No Quantitative Blood Loss (ml): 125 Anesthesia type: None Disposition: Floor Complications: No immediate complications Baby Date of : 07/20/25 Time of : 15:00 Gestational Age by Date: 36 Infant gender: Female Weight (pounds): 5 Weight (ounces): 11 presentation: vertex position: Left Occiput Anterior Placenta delivery description: Expressed Cord Vessel Description: 3 Vessels score one minute: 8 score five minutes: 9
[2025-07-20] MEDS: OXYTOCIN 30 UNITS/NS 500 ML 30 UNITS/500 ML BAG 125 UNITS IV CONT (15:42)
--- NOTE | 2025-07-20 17:25 | OBPPTRN ---
Patient transferred to post room #281 via wheelchair. Support person present. Oriented to unit, room, information board, rooming in, admission packet and security measures. Patient verbalizes understanding.
[2025-07-20] MEDS: IBUPROFEN 600 MG TABLET PO (19:22)
[2025-07-20] MEDS: ACETAMINOPHEN 325 MG TABLET 650 MG PO (19:22)
[2025-07-21] MEDS: ACETAMINOPHEN 325 MG TABLET 650 MG PO ×2 (02:05→10:34)
[2025-07-21] MEDS: IBUPROFEN 600 MG TABLET PO ×3 (02:05→17:41)
[2025-07-21 05:01] LABS: Hematocrit 31.7 % (37.0-47.0); Hemoglobin 9.8 g/dL (12.0-15.0)
[2025-07-21 07:05] VITALS: BP 94/58; PULSE 76; RESP 16; TEMP 37.1; O2SAT 98
--- NOTE | 2025-07-21 07:52 | PM.OBPNVD ---
OB - PN: Subj Subjective Date/time seen: 07/21/25 07:52 Interval history: pp day 1 doing well no complaints OB - PN: Obj Data Labs 07/21/25 04:47 Labs: Laboratory Results - last 24 hr 07/20/25 07/20/25 07/21/25 06:43 08:51 04:47 WBC 14.2 H RBC 4.33 Hgb 11.9 L 9.8 L Hct 36.2 L 31.7 L MCV 83.6 MCH 27.5 MCHC 32.9 RDW 14.5 Plt Count 197 MPV 12.4 H Immature Gran % (Auto) 1.1 H Neut % (Auto) 79.1 H Lymph % (Auto) 13.4 L [place] % (Auto) 6.1 Eos % (Auto) 0.1 Baso % (Auto) 0.2 Lymph # (Auto) 1.90 [place] # (Auto) 0.9 H Eos # (Auto) 0.0 Baso # (Auto) 0.0 Abs Immat Gran (auto) 0.16 H Absolute Neuts (auto) 11.2 H Absolute Nucleated RBC 0.000 Nucleated RBC % 0.0 Membranes Rupture Rom plus negative Syphilis IgG/IgM Ab Non-reactive Blood Type A Positive Antibody Screen Negative OB - PN A/P Plan day: 1 Plan: routine care Time Spent With Patient Time: Total time spent is greater than 50% in coordination of care (as documented) at patient's floor/unit and/or counseling patient: Review of Systems Review of Systems: All systems reviewed & are unremarkable except as noted in HPI and below Exam Const: General: cooperative and healthy appearing Chest: Chest palpation & inspection: normal inspection of the chest Resp: Effort & Inspection: normal respiratory effort Skin: General skin exam: normal color
--- NOTE | 2025-07-21 09:52 | WPDANLDPN2 ---
Anes-Prog Note L&D Date/Time: 07/21/25 09:52 Comfortable throughout: labor and delivery Neuraxial method: epidural Epidural/Spinal procedure site: clean & non-tender Neuro status: Neuro function grossly intact. Cardiovascular status: normal Respiratory status: normal Airway patency: baseline Mental status: baseline Post-Op hydration status: normal Vital Signs: Last Vital Signs Temp 37.1 C 07/21/25 07:05 Pulse 76 07/21/25 07:05 Resp 16 07/21/25 07:05 BP 94/58 L 07/21/25 07:05 Pulse Ox 98 07/21/25 07:05 O2 Del Method Room Air 07/20/25 19:55 Pain score (VAS): 1 I/O: Intake & Output 07/20/25 07/21/25 07/21/25 23:59 07:59 15:59 Intake Total 350 Balance 350 Post-procedural complaints: none Patient feedback: Patient satisfied with anesthetic care.
[2025-07-21] MEDS: MULTIVIT/MIN/PREN/FOL AC/IRON TABLET 1 TAB PO (10:33)
[2025-07-21] MEDS: DOCUSATE SODIUM 100 MG CAPSULE PO ×2 (10:33→17:41)
[2025-07-21 11:48] VITALS: BP 99/69; PULSE 93; RESP 16; TEMP 36.8; O2SAT 98
[2025-07-21 20:01] VITALS: BP 127/80; PULSE 62; RESP 16; TEMP 36.6; O2SAT 98
[2025-07-22 07:15] VITALS: BP 94/54; PULSE 58; RESP 16; TEMP 36.8; O2SAT 99
[2025-07-22] MEDS: DOCUSATE SODIUM 100 MG CAPSULE PO (08:05)
[2025-07-22] MEDS: IBUPROFEN 600 MG TABLET PO (08:09)
--- NOTE | 2025-07-22 08:45 | P.PNOB_ITS ---
OB - PN: Subj Subjective Date/time seen: 07/22/25 08:45 Interval history: pp day 2 doing well no complaints voiding without issue ready for discharge home OB - PN: Obj Data Labs 07/21/25 04:47 OB - PN A/P Plan day: 2 Plan: routine care and discharge home Time Spent With Patient Time: Total time spent is greater than 50% in coordination of care (as documented) at patient's floor/unit and/or counseling patient: Review of Systems 2 Review of Systems: All systems reviewed & are unremarkable except as noted in HPI and below Exam 2 Const: General: comfortable and no acute distress O rientation/consciousness: patient oriented x3 Resp: Effort & Inspection: normal respiratory effort
--- NOTE | 2025-07-22 08:46 | PM.OBDSVD ---
DS: Admitting Diagnosis Discharge Date 07/22/25 Admitting Diagnosis labor DS: Discharge Diagnosis Discharge Diagnosis (1) (spontaneous vaginal delivery): Code(s): O80 - Encounter for full-term uncomplicated delivery Status: Acute OB - DS: Summary OB Procedures : None OB Procedures Intrapartum: Spontaneous Vag Delivery OB Procedures: : None Peripartum Data Laceration Description: None Episiotomy description: None Time Spent with Patient Time attestation: Total time spent providing and/or coordinating discharge services: Discharge Plan Discharge Attending physician on discharge: Manan Mcmullen Discharging Clinician: Manan Mcmullen Patient Disposition: Home Activity: may shower, as tolerated and pelvic rest Diet: as tolerated Patient Instructions: Antibiotic Form Patient Language: Ukrainian Stand Alone Forms: General Discharge Information Follow-up/Referrals: Darlene French CNM [Certified Nurse Commercial Collector, [employer]ST[employer]] - 5 Weeks Discharge Medications: New ibuprofen 600 mg Tablet 600 mg PO Q6H PRN (Reason: Cramping) Qty: 30 0RF Continued ondansetron 4 mg tablet,disintegrating 4 mg PO Q6H PRN (Reason: nausea and vomiting) PNV no.95-ferrous fumarate-FA [] 28 mg iron- 800 mcg tablet 1 tablet PO DAILY Date of admission: 07/20/25 05:42 Primary Care Provider: PHYSICIAN,DESIGN QUALITY ENGINEER Admitting Provider: Santo Parr Attending physician on admission: Darlene French Condition: Stable
[2025-07-23 12:57] VITALS: BP 122/79; PULSE 100; RESP 18; TEMP 36.7; O2SAT 100
== END 2025-07-22 10:26 | disposition home or self-care (01) | DRG 560 ==
LOC: ANHLDR 10:14 → ANHOB2 07-22 08:46 → ANHLDR 07-24 08:36 → ANHOB2 07-24 08:36
PROVIDERS: Advanced Practice Midwife; Admitting Provider Obstetrics & Gynecology; Visit Provider Obstetrics & Gynecology
DX: O60.14X0 Preterm labor third trimester with preterm delivery third trimester, not applicable or unspecified (principal); Z37.0 Single live birth; Z3A.36 36 weeks gestation of pregnancy
CPT/HCPCS: 36415; 84112; 85014; 85018; 85025; 86593; 86850; 86900; 86901; A9270; J2590; J2795; J3010; J7120